=== PATIENT | male | born 1955 | race Caucasian/White ===

== ENCOUNTER 2025-05-03 15:29 | Emergency (ER) | payer MEDICARE, SELFPAY ==
[2025-05-03] VITALS (8 sets, daily range): BP systolic 104–141; BP diastolic 68–90; PULSE 74–86; RESP 12–23; TEMP 36.7–36.8; O2SAT 95–99
--- NOTE | ~2025-05-03 | XR_ITS ---
EXAMINATION: XR chest 1V portable Exam Date/Time: 05/03/2025 20:40 CDT HISTORY: cp Comparison: None. RESULT: Lines, tubes, and devices: Intact sternotomy wires. Lungs and pleura: Peripheral lower lung scar, minimal bibasilar scar/atelectasis otherwise clear. Cardiomediastinal silhouette: Enlarged heart. Other: No acute osseous or upper abdominal finding. IMPRESSION: No acute cardiopulmonary process. Cardiomegaly. Reviewed, dictated and finalized at location K.
--- OUTSIDE RECORDS SUMMARY | 2025-05-03 15:32 | XMS_ITS | Encounter Summary ---
Author Organization [facility] Address [address] [place] [address] Care Team Providers Care Orientor Name Role Phone Unavailable Primary Care Provider Unavailabl e Prior Encounters Date Type Department Care Team Description 11/02/2019 Converted CPS Chart Documents [facility] [address] [place], [place] [phone] <No scans attached> 11/02/2019 Converted 13x Documents [facility] [address] [place] [phone] <No scans attached> Plan of Treatment Not on file Procedures Procedure Name Priority Date/Time Associated Diagnosis Comments CANCELLED APPOINTMENT Routine 03/16/2019 2:00 AM CDT ORAL HYGIENE INSTRUCTIONS Routine 2017 2:00 AM MEDICAL TRANSCRIPTION SUPERVISOR PROPHYLAXIS - ADULT Routine 09/24/2018 2 :00 AM MEDICAL TRANSCRIPTION SUPERVISOR PERIODIC ORAL EVALUATION - ESTABLISHED PATIENT Routine 09/09/2018 2:00 AM MEDICAL TRANSCRIPTION SUPERVISOR BITEWINGS - FOUR RADIOGRAPHIC IMAGES Routine 09/09/2018 2:00 AM MEDICAL TRANSCRIPTION SUPERVISOR PERIODIC ORAL EVALUATION - ESTABLISHED PATIENT Routine 02/25/2018 2:00 AM CDT ORAL HYGIENE INSTRUCTIONS Routine 2017 2:00 AM CDT PROPHYLAXIS - ADULT Routine 02/25/2018 2 :00 AM CDT BITEWINGS - FOUR RADIOGRAPHIC IMAGES Routine 02/25/2018 2:00 AM CDT 30 EXTRACTION, ERUPTED TOOTH REQUIRING REMOVAL OF BONE AND/OR SECTIONING OF TOOTH Routine 08/14/2017 2:00 AM CDT PERIODIC ORAL EVALUATION - ESTABLISHED PATIENT Routine 07/31/2017 2:00 AM CDT ORAL HYGIENE INSTRUCTIONS Routine 2016 2:00 AM CDT UR ANTIBACT IRR/QUAD Routine 07/31/2017 2:00 AM CDT UL ANTIBACT IRR/QUAD Routine 07/31/2017 2:00 AM CDT LR ANTIBACT IRR/QUAD Routine 07/31/2017 2:00 AM CDT LL ANTIBACT IRR/QUAD Routine 07/31/2017 2:00 AM CDT PROPHYLAXIS - ADULT Routine 07/31/2017 2 :00 AM CDT BITEWINGS - FOUR RADIOGRAPHIC IMAGES Routine 07/31/2017 2:00 AM CDT ADDITIONAL X-RAY Routine 07/31/2017 2:00 AM CDT SINGLE X-RAY Routine 07/31/2017 2:00 AM CDT 20 DO COMPOSITE FILLING Routine 10/24/19 17 2:00 AM MEDICAL TRANSCRIPTION SUPERVISOR 18 MO COMPOSITE FILLING Routine 10/24/19 17 2:00 AM MEDICAL TRANSCRIPTION SUPERVISOR PERIODIC ORAL EVALUATION - ESTABLISHED PATIENT Routine 10/10/2016 2:00 AM MEDICAL TRANSCRIPTION SUPERVISOR ORAL HYGIENE INSTRUCTIONS Routine 2015 2:00 AM MEDICAL TRANSCRIPTION SUPERVISOR PROPHYLAXIS - ADULT Routine 10/10/2016 2 :00 AM MEDICAL TRANSCRIPTION SUPERVISOR BITEWINGS - FOUR RADIOGRAPHIC IMAGES Routine 10/10/2016 2:00 AM MEDICAL TRANSCRIPTION SUPERVISOR ADDITIONAL X-RAY Routine 10/10/2016 2:00 AM MEDICAL TRANSCRIPTION SUPERVISOR ADDITIONAL X-RAY Routine 10/10/2016 2:00 AM MEDICAL TRANSCRIPTION SUPERVISOR ADDITIONAL X-RAY Routine 10/10/2016 2:00 AM MEDICAL TRANSCRIPTION SUPERVISOR ADDITIONAL X-RAY Routine 10/10/2016 2:00 AM MEDICAL TRANSCRIPTION SUPERVISOR ADDITIONAL X-RAY Routine 10/10/2016 2:00 AM MEDICAL TRANSCRIPTION SUPERVISOR SINGLE X-RAY Routine 10/10/2016 2:00 AM MEDICAL TRANSCRIPTION SUPERVISOR PERIODIC ORAL EVALUATION - ESTABLISHED PATIENT Routine 04/03/2016 2:00 AM CDT ORAL HYGIENE INSTRUCTIONS Routine 2015 2:00 AM CDT PROPHYLAXIS - ADULT Routine 04/03/2016 2 :00 AM CDT BITEWINGS - FOUR RADIOGRAPHIC IMAGES Routine 04/03/2016 2:00 AM CDT ADDITIONAL X-RAY Routine 04/03/2016 2:00 AM CDT ADDITIONAL X-RAY Routine 04/03/2016 2:00 AM CDT ADDITIONAL X-RAY Routine 04/03/2016 2:00 AM CDT ADDITIONAL X-RAY Routine 04/03/2016 2:00 AM CDT ADDITIONAL X-RAY Routine 04/03/2016 2:00 AM CDT SINGLE X-RAY Routine 04/03/2016 2:00 AM CDT 30 PREFABRICATED POST AND CORE IN ADDITION TO CROWN Routine 09/27/2015 2:00 AM MEDICAL TRANSCRIPTION SUPERVISOR 29 PREFABRICATED POST AND CORE IN ADDITION TO CROWN Routine 09/27/2015 2:00 AM MEDICAL TRANSCRIPTION SUPERVISOR 19 ENDODONTIC THERAPY, MOLAR TOOTH (EXCLUDING FINAL ALEVISM) Routine 09/27/2015 2:00 AM MEDICAL TRANSCRIPTION SUPERVISOR 14 ENDODONTIC THERAPY, MOLAR TOOTH (EXCLUDING FINAL ALEVISM) Routine 09/27/2015 2:00 AM MEDICAL TRANSCRIPTION SUPERVISOR 30 ENDODONTIC THERAPY, PREMOLAR TOOTH (EXCLUDING FINAL ALEVISM) Routine 09/27/2015 2:00 AM MEDICAL TRANSCRIPTION SUPERVISOR 29 ENDODONTIC THERAPY, PREMOLAR TOOTH (EXCLUDING FINAL ALEVISM) Routine 09/27/2015 2:00 AM MEDICAL TRANSCRIPTION SUPERVISOR 30 CROWN PFM POST Routine 09/27/2015 2:0 0 AM MEDICAL TRANSCRIPTION SUPERVISOR 29 CROWN PFM POST Routine 09/27/2015 2:0 0 AM MEDICAL TRANSCRIPTION SUPERVISOR 19 CROWN PFM POST Routine 09/27/2015 2:0 0 AM MEDICAL TRANSCRIPTION SUPERVISOR 14 CROWN PFM POST Routine 09/27/2015 2:0 0 AM MEDICAL TRANSCRIPTION SUPERVISOR COMPREHENSIVE ORAL EVALUATION - NEW OR ESTABLISHED PATIENT Routine 09/27/2015 2:00 AM MEDICAL TRANSCRIPTION SUPERVISOR ORAL HYGIENE INSTRUCTIONS Routine 2014 2:00 AM MEDICAL TRANSCRIPTION SUPERVISOR TOPICAL APPLICATION OF FLUORIDE VARNISH Routine 09/27/2015 2:00 AM MEDICAL TRANSCRIPTION SUPERVISOR PROPHYLAXIS - ADULT Routine 09/27/2015 2 :00 AM MEDICAL TRANSCRIPTION SUPERVISOR PANORAMIC RADIOGRAPHIC IMAGE Routine 09/27/2015 2:00 AM MEDICAL TRANSCRIPTION SUPERVISOR INTRAORAL - COMPREHENSIVE SERIES OF RADIOGRAPHIC IMAGES Routine 09/27/2015 2:00 AM MEDICAL TRANSCRIPTION SUPERVISOR INTRAORAL PHOTO Routine 09/27/2015 2:00 AM MEDICAL TRANSCRIPTION SUPERVISOR INTRAORAL PHOTO Routine 09/27/2015 2:00 AM MEDICAL TRANSCRIPTION SUPERVISOR INTRAORAL PHOTO Routine 09/27/2015 2:00 AM MEDICAL TRANSCRIPTION SUPERVISOR INTRAORAL PHOTO Routine 09/27/2015 2:00 AM MEDICAL TRANSCRIPTION SUPERVISOR 15 MOD COMPOSITE FILLING Routine 015 2:00 AM MEDICAL TRANSCRIPTION SUPERVISOR 13 MOD COMPOSITE FILLING Routine 015 2:00 AM MEDICAL TRANSCRIPTION SUPERVISOR 3 MOD COMPOSITE FILLING Routine 09/27/20 2:00 AM MEDICAL TRANSCRIPTION SUPERVISOR 12 DO COMPOSITE FILLING Routine 09/27/20 2:00 AM MEDICAL TRANSCRIPTION SUPERVISOR 4 DO COMPOSITE FILLING Routine 5 2:00 AM MEDICAL TRANSCRIPTION SUPERVISOR 18 O COMPOSITE FILLING Routine 5 2:00 AM MEDICAL TRANSCRIPTION SUPERVISOR 2 O COMPOSITE FILLING Routine 09/27/2015 2:00 AM MEDICAL TRANSCRIPTION SUPERVISOR Visit Diagnoses Not on file
--- OUTSIDE RECORDS SUMMARY | 2025-05-03 15:32 | XMS_ITS | Continuity of Care Document ---
[facility] Organization [facility] [place] [address] [facility] utijustine Flannery [address] [place] [phone] Phone Care Team Providers Care Real Estate Development Manager Name Role Phone Gordo Ragland MD Unavailable Unavailable Allergies, Adverse Reactions, Alerts Substance Reaction Status Criticality Sulfa (Sulfonamide Antibiotics) Active No Information Medications Medication Instructions Dosage Effective Dates (start - stop) Status Comments Marsha 128 5 % eye drops instill 1 drop by ophthalmic route two times per day in each eye - Active ezetimibe 10 mg tablet take 1 tablet by oral route every day 10 MG - Active terazosin 2 mg capsule take 1 capsule by oral route every day at bedtime 2 MG - Active rosuvastatin 40 mg tablet take 1 tablet by oral route every day 40 MG - Active metoprolol succinate ER 100 mg tablet,extended release 24 hr take 1 tablet by oral route every day 100 MG - Active lisinopril 5 mg tablet take 1 tablet by oral route every day 5 MG - Active clopidogrel 75 mg tablet take 1 tablet by oral route every day 75 MG - Active amlodipine 5 mg tablet take 1 tablet by oral route every day 5 MG - Active diltiazem ER 240 mg capsule,24 hr,extended release take 1 capsule by oral route every day 240 MG - Active Eliquis 5 mg tablet take 1 tablet by oral route 2 times every day 5 MG - Active ketorolac 0.5 % eye drops instill 1 drop in operative eye 4 times every day for 2 weeks, then 2 times per day for 2 weeks, then stop - No Longer Active prednisolone acetate 1 % eye drops,suspension instill 1 drop by ophthalmic route 4 times every day into operative eye for 2 weeks, then 2 times per day for 2 weeks, then stop - No Longer Active Vigamox 0.5 % eye drops instill 1 drop by ophthalmic route 4 times every day into operative eye for 2 weeks, then stop - No Longer Active ok to substitute Polytrim 5ml with same directions ketorolac 0.5 % eye drops instill 1 drop in operative eye 4 times every day for 2 weeks, then 2 times per day for 2 weeks, then stop - No Longer Active prednisolone acetate 1 % eye drops,suspension instill 1 drop by ophthalmic route 4 times every day into operative eye for 2 weeks, then 2 times per day for 2 weeks, then stop - No Longer Active Vigamox 0.5 % eye drops instill 1 drop by ophthalmic route 4 times every day into operative eye for 2 weeks, then stop - No Longer Active ok to substitute Polytrim 5ml with same directions Procedures Procedure Date Refraction Post-op Follow-up Visit Post-op Follow-up Visit Post-op Follow-up Visit Remove Cataract, Insert Lens No Charge Refraction Post-op Follow-up Visit Post-op Follow-up Visit Remove Cataract, Insert Lens No Charge Optomap Fundus Photos 020 No Charge Refraction Office/outpatient Visit, Est Office/outpatient Visit, Est No Charge Refraction No Charge Orbscan No Charge GDX Retina IOLMaster IOLMaster Corneal Pachymetry No Charge Refraction Eye Exam, New Patient No Charge Pachymetry Advance Directives Directive Yes / No Effective Date File Name No Information Encounters Encounter Description Practice Location Reason(s) For Visit Diagnoses Date Provider Providers Copied on Encounter [facility], [address], [place], [place], [id number], [place] [phone] SEC Cut[place] Professional 1 mo CE PO (04/20/20) (chief complaint) Post op visit 0 Obie Caro. [address] [facility], [place], [id number], [place]. tel:[phone] Referring Provider: Reji Slade, [address] [place] [address], [place], [address] . tel:[phone] [facility], [address] [place] [address] [address], [place], [place], [id number], [place] [phone] SEC [place] Professional 1 wk po PCIOL OD (04/20/20) (chief complaint) Post op visit 0 Charley Gonzalez. [address] [place] [address], [address] [place] [address], [place], [address], [place]. tel:[phone] Referring Provider: Carlos Whitehead OD R, [address] [place] [address], [place], [address]. tel:[phone] [facility], [address], [place], [place], [id number], [place] tel:[phone] SEC [place] Professional 1 day s/p PCIOL (chief complaint) Post op visit 0 Charley MORA Carlos. [address] [place] [address], [address] [place] [address], [place], [address], [place]. tel:[phone] Referring Provider: Carlos Whitehead OD R, [address] [place] [address], [place], [address]. tel:[phone] [facility], [address], [place], [place], [id number], [place] tel:[phone] [facility] No Information 0 Obie Caro. [address] [facility], [address] [place], [id number], . tel:[phone] Referring Provider: Carlos Mc, [address] [place] [address], [place], [address]. tel:[phone] [facility], [id number] [place] [address] [address], [place], [place], [id number], tel:[phone] SEC Helene Edmond [facility] No Information 0 Obie Caro. [address] [facility], [facility] [place], [id number], [place]. tel:[phone] [facility], [address] [place] [address] [address], [place], [place], [address], [place] tel:[phone] SEC [place] Professional Post-Op (chief complaint) Post op visit 0 Charley Gonzalez. [address] [place] [address], [address], [place]. tel:[phone] Referring Provider: Carlos Mc, [address] [place] [address], [place], [address]. tel:[phone] [facility], [address] [place] [address] [address], [place], [place], [id number], [place] tel:[phone] SEC [place] Professional Post-Op (chief complaint) Post op visit 0 Charley Gonzalez. [address] [place] [address], [address] [place] [address], [place], [address], [place]. tel:[phone] Referring Provider: Carlos Mc, [address] [place] [address], [address]. tel:[phone] [facility], [address] [place] [address] [address], [place], [place], [id number], [place] tel:[phone] [facility] No Information 0 Obie Caro. [address] [facility], [address], [place], [place], [id number], [place]. tel:[phone] Referring Provider: Carlos Whitehead OD R, [address] [place] [address], [place], [address]. tel:[phone] Office/outpa tient Visit, [facility], [address] [place] [address] [address], [place], [place], [id number], [place] tel:[phone] SEC Catracho [place] Professional 90 day cataract eval (chief complaint) Combined forms of age-related cataract, bilateralEpir etinal membrane (ERM) of left eyeFuchs' corneal dystrophyType 2 diabetes mellitus without complications Optic cupping of left eye 0 Obie Caro. [address] [facility] [place], [address], [place]. tel:[phone] Referring Provider: Carlos Whitehead OD R, [address] [place] [address], [place], [address]. tel:[phone] [facility], [address] [place] [address] [address], [place], [place], [address], [place] tel:[phone] SEC Catracho LANGE Professional No Information 0 Obie Caro. [address] [facility] [address], [place], [place], [id number], [place]. tel:[phone] Office/outpa tient Visit, [facility], [address] [place] [address] [address], [place], [place], [id number], [place] tel:[phone] SEC Catracho LANGE Professional Cataract evaluation (chief complaint) Combined forms of age-related cataract, bilateralEpir etinal membrane (ERM) of left eyeType 2 diabetes mellitus without complications Fuchs' corneal dystrophy 0 Obie Caro. [address] [facility], [facility] [place], [address], [place]. tel:[phone] Referring Provider: Carlos Whitehead OD R, [address] [place] [address], [place], [address]. tel:[phone] [facility], [address], [place], [place], [id number], tel:[phone] SEC Catracho LANGE Professional Complete Exam (chief complaint) Type 2 diabetes mellitus without complications Fuchs' corneal dystrophyComb ined forms of age-related cataract, bilateralEpir etinal membrane (ERM) of left eyeDry eye syndrome of bilateral lacrimal glands 0 Charley OD Carlos. [address] [place] [address], [address] [place] [address], [place], [address], [place]. tel:[phone] [facility], [address], [place], [place], [id number], [place] tel:[phone] SEC Catracho LANGE Professional No Information 0 Charley OD Carlos. [address] [place] [address], [address] [facility], [place], [address], [place]. tel:[phone] Family History Family Member Type Diagnosis Age At Onset No Information Payers Payer name Insurance type Covered democrat ID Authoriza tion(s) No Information Social History Type Description Quantity Date Captured Comments Alcohol Use Details Caffeine Use Details Tobacco Use Status Current non-smoker Smoking Status Never smoker Non-Smoking Tobacco Use Details : No Details Available : No Details Available Sex Male Chief Complaint And Reason For Visit From encounter dated '05/20/2020 09:15'. 1 mo CE PO (04/20/20) (chief complaint). Description: The 65 year old male presents for evaluation of1 mo CE PO (04/20/20) in the right eye. Pt reports he finished all CE PO gtts a few days ago and currently uses Marsha 128 PRN OU. Pt reports OD is doing good and he is seeing a lot better since CE, OD. Reason For Referral Reason For Referral No Information Plan Of Treatment Date Type Action Status Patient Education Cataract Surgery: What to Expect at H~ completed Patient Education Cataract Surgery: What to Expect at H~ completed Patient Education Cataracts: Care Instruc tions completed History Of Present Illness Encounter Date Complaint History Of Prese nt Illness 1 mo CE PO (04/20/20) The 65 year old male presents for evaluation of 1 mo CE PO (04/20/20) in the right eye. Pt reports he finished all CE PO gtts a few days ago and currently uses Marsha 128 PRN OU. Pt reports OD is doing good and he is seeing a lot better since CE, OD. 1 wk po PCIOL OD (04/20/20) The 65 year old male presents for evaluation of 1 wk po PCIOL OD (04/20/20) in the right eye. Pt reports good comfort and vision OD. Pt reports taking Pred QID OD, Vigamox QID OD, and Ketorolac QID OD. Pt has not been taking Marsha 128 and wants to know if he needs to continue. 1 day s/p PCIOL The 65 year old male presents for evaluation of 1 day s/p PCIOL in the right eye. Patient doing well. Patient instructed to use Pred, Ket, and Vig as well as use of eye shield. Post-Op The 65 year old male presents for a 2 week post op CE OS. Patient is using Pred, and Ketorolac tid OS. Patient ran out of Vigamox yesterday. Patient states OS is doing good. Patient wishes to proceed with CE OD because of blurry vision. Patient is bothered by glare driving at night. Patient is having a hard time watching TV and did not recognize a friend from across the street. Post-Op The 65 year old male presents for a 1 day post op CE OS. Patient is using Pred, Vigamox and Ketorolac qid OS. Patient denies any pain or discomfort. 90 day cataract eval The 65 year old male presents for evaluation of 90 day cataract eval in the right eye and left eye. Pt has Hx of cataracts OU, MICHAEL OU, ERM OD, Fuch's OU. Pt instills Marsha OU bid. Pt is Type II NIDDM, he doesn't know his A1c or BS. Pt has difficulty with driving at night due to glare, he has difficulty during the day with glare as well. Pt has difficulty seeing road signs and TV. He could not recognize a friend across the street. Cataract evaluation The 64 year old male presents for evaluation of Cataract evaluation in the right eye and left eye. Hx of CAT OU, ERM OD, MICHAEL OU, and Fuch's OU. Pt is NIDDM II x 8 yrs, followed by PCP, pt reports he is unaware of BS and A1C was good in August. Pt reports he has trouble reading street signs, TV, and recognizing people's faces from across the street, OU, x several mos. Pt reports he is using WC PRN OU, Marsha 128 QD OU and AFT QD OU. Complete Exam The 64 year old male presents for evaluation of Complete Exam in the right eye and left eye. Hx of scratched eye w/tree branch OS 20 yrs ago. Pt denies any past ocular Sx, OU. Pt is NIDDM II x 8 yrs, followed by PCP Dr. Sarah Gonzalez (Not in [employer]), pt reports he doesn't check BS, is unsure of A1C, but it was good in August 2019. Pt reports blurry DV, OU, since February last year. Pt reports ILIA was February 2019, got new gls, and they didn't really help. Pt reports he uses Marsha 128 QHS OU when he remembers, the eye dr in February gave him that in February for the cloudiness in his VA, OU, and he hasn't noticed that it helps. Functional Status Date Functional Assessmen t No Information Instructions Date Instruction Additional Infor mation Impression/Plan 2wk or sooner prn Related to Pos t op visit Impression/Plan Related to Post op visit Impression/Plan Impression/Plan Impression/Plan Impression/Plan Impression/Plan Impression/Plan Assessments Type Assessment Date assessment Post op visit Patient Care Teams Name Effective Dates (start - stop) Status Members No Information
--- OUTSIDE RECORDS SUMMARY | 2025-05-03 15:32 | XMS_ITS | Clinical Summary ---
Author Organization [employer] [address] [facility] Address [address] [place] [address] Care Team Providers Care C D Still Operator Name Role Phone Isabela Augustine Primary Care Provider [phone] Allergies Active Allergy Reactions Criticality Noted Date Comments Sulfa (Sulfonamide Antibiotics) Rash Low 04/2025 Medications zinc 50 mg Tablet Take 50 mg by mouth daily. Active warfarin (Jantoven) 2 mg tablet Take 1.5 Tablets (3 mg) by mouth daily. 135 Tablet 2 0 Active Additional Information Patient taking differently: 2 mgOral DAILY, Reported on 04/29/2025 metFORMIN (GLUCOPHAGE) 500 mg tablet Take 500 mg by mouth 2 times daily with meals. 5 Active ALPRAZolam (XANAX) 0.5 mg tablet Take 0.5 mg by mouth nightly as needed. 4 Active oxyBUTYnin (DITROPAN XL) 10 mg Extended Release 24 hour tablet Take 10 mg by mouth daily. 5 Active pantoprazole (PROTONIX) 40 mg Tablet, Delayed Release (E.C.) Take 40 mg by mouth daily. 5 Active tamsulosin (FLOMAX) 0.4 mg capsule Take 0.4 mg by mouth daily. 5 Active amLODIPine (NORVASC) 2.5 mg tablet Take 1 Tablet (2.5 mg) by mouth daily. 100 Tablet 3 5 Active atorvastatin (LIPITOR) 80 mg tablet Take 1 Tablet (80 mg) by mouth daily at bedtime. 100 Tablet 3 5 Active ezetimibe (ZETIA) 10 mg tablet Take 1 Tablet (10 mg) by mouth daily. 90 Tablet 1 5 Active losartan (COZAAR) 100 mg tablet Take 1 Tablet (100 mg) by mouth daily. 100 Tablet 3 5 Active metoprolol succinate (TOPROL XL) 100 mg Extended Release 24 hour tablet TAKE 1 TABLET BY MOUTH EVERY DAY 90 Tablet 3 5 Active dapagliflozin propanediol (Farxiga) 10 mg Tablet Take 1 Tablet (10 mg) by mouth daily. 90 Tablet 1 5 Active Active Problems Problem Noted Date Diagnosed Date Aortic root dilatation 06/29/2020 A-fib 12/17/2019 PAF (paroxysmal atrial fibrillation) 10/21/2019 Chronic anticoagulation 10/21/2019 Coronary artery disease invo lving [place]tz tribe coronary artery of [place] heart with unstable angina pectoris 04/15/2019 Palpitations 04/15/2019 Dyslipidemia 04/15/2019 [place] (myocardial infarction) 04/15/2019 Anxiety 02/12/2019 Atrial fibrillation with RVR 02/12/2019 BPH (benign prostatic hyperplasia) 02/12/2019 Clicking tinnitus 02/12/2019 Essential hypertension 02/12/2019 GERD (gastroesophageal reflux disease) 9 Type 2 diabetes mellitus 02/12/2019 Benign colon polyp 03/31/2018 History of coronary artery bypass surgery 2014 Coronary artery disease invo lving [place] coronary artery with unstable angina pectoris 05/20/2015 Hyperlipidemia 05/20/2015 Resolved Problems Problem Noted Date Diagnosed Date Resolved Date Right inguinal hernia 04/09/20192018 Left main coronary artery disease 05/20/2015 08/24/2019 Encounters Date Type Department Care Team Description 05/03/2025 Telephone [facility] GASTROENTEROLOGY - [address] [facility] 102 [address] [address] [facility] [address] [place] [address] Bhumi Jaeger MD GI Problem 04/30/2025 Telephone [facility] GASTR[facility] - [address] [facility] 102 [address] [address] [place] [address] Bhumi Jaeger MD Referral 04/29/2025 9:48 AM CDT Anesthesia Event [facility] Endoscopy Services [address] [place] [phone] Cliff Araiza MD Wagner, Caitlin E, AA-Jonathan 04/29/2025 9:30 AM CDT - 04/29/2025 10:30 AM CDT Surgery [facility] [address] [place] [address] Bhumi Jaeger MD ULTRASOUND ENDOSCOPIC 04/29/2025 8:50 AM CDT - 04/29/2025 12:36 PM CDT Hospital Encounter [facility] [address] [place] [address] Bhumi Jaeger MD Lymphadenopathy Discharge Disposition: Home or Self Care 04/28/2025 External Device Data STL ABSTRACTION Provider, Abstract 04/27/2025 External Device Data STL ABSTRACTION Provider, Abstract 04/12/2025 Orders Only [facility] Heart and Vascular - [address] [facility] 202 [address] [facility] [address] [place] [address] Shae Dinh MD Longstanding persistent atrial fibrillation ([facility]/HCC) 04/09/2025 Telephone [facility] GASTROENTEROLOGY - [address] [facility] 102 [address] [facility] [address] [place] [address] Bhumi Jaeger MD NURSE ASSESSMENT 04/09/2025 Telephone [facility] GASTROENTEROLOGY - [address] [facility] [address] [address] Bhumi Jaeger MD Medication Question (Warfarin) 04/09/2025 Orders Only [facility] GASTRO[facility]OLOGY - [address] [facility] [address] [address] Bhumi Jaeger MD 04/08/2025 Telephone [facility] GASTROENTEROLOGY - [address] [facility] [address] 102 [address] [facility] [address] [place] [address] Bhumi Jaeger MD Needs Orders Written 04/08/2025 Chart Note [facility] Heart and Vascular - [address] [place] [phone] Myron Cyndie L 04/08/2025 Telephone [facility] Heart and Vascular - [address] [place] [address] Shae Dinh MD message 04/07/2025 Telephone [facility] Heart and Vascular - [address] [place] [address] Shae Dinh MD Abnormal Imaging Results 04/06/2025 7:48 AM CDT - 04/06/2025 11:59 PM CDT Hospital Encounter [facility] Imaging Services [address] [place] [address] Shae Dinh MD Discharge Disposition: Home or Self Care 04/06/2025 Telephone [facility] Heart and Vascular - [address] [place] [address] Shae Dinh MD Imaging Results 04/05/2025 Orders Only [facility] Heart [facility] Vascular - [address] [place] [address] Shae Dinh MD Longstanding persistent atrial fibrillation ([facility]/HCC) 03/30/2025 External Device Data STL ABSTRACTION Provider, Abstract 03/29/2025 Orders Only [facility] Heart [facility] Vascular - [address] [place] [address] Shae Dinh MD Longstanding persistent atrial fibrillation ([facility]/HCC) 03/22/2025 Telephone [facility] Heart [facility] Vascular - [address] [place] [address] Shae Dinh MD test results 03/22/2025 Orders Only [facility] Heart [facility] Vascular - [address] [place] [address] Shae Dinh MD Longstanding persistent atrial fibrillation ([facility]) 03/19/2025 Telephone [facility] Heart and Vascular - [address] [place] [address] Ben Aceves MD medical question 03/18/2025 Telephone [facility] Heart [facility] Vascular - [address] [place] [address] Shae Dinh MD image 03/18/2025 Telephone [facility] Heart [facility] Vascular - [address] [place] [address] Shae Dinh MD Further testing 03/17/2025 12:00 PM CDT - 03/17/2025 11:59 PM CDT Hospital Encounter [facility] [place] [address] [place] [address] Shae Dinh MD Discharge Disposition: Home or Self Care 03/15/2025 Orders Only [facility] Heart [facility] Vascular - [address] [place] [address] Shae Dinh MD Longstanding persistent atrial fibrillation ([facility]) 03/09/2025 External Device Data STL ABSTRACTION Provider, Abstract 03/08/2025 Orders Only [facility] Heart and Vascular - [address] [place] [address] Shae Dinh MD Longstanding persistent atrial fibrillation ([facility]) 03/04/2025 External Device Data STL ABSTRACTION Provider, Abstract 03/01/2025 Orders Only [facility] Heart and Vascular - [address] [place] [address] Shae Dinh MD Longstanding persistent atrial fibrillation (CMS/HCC) 02/22/2025 Orders Only [facility] Heart [facility] Vascular - [address] [place] [address] Shae Dinh MD Longstanding persistent atrial fibrillation ([facility]/HCC) 02/15/2025 Orders Only [facility] Heart [facility] Vascular - [address] [place] [address] Shae Dinh MD Longstanding persistent atrial fibrillation ([facility]/HCC) 02/11/2025 10:30 AM CDT Office Visit [facility] Heart and Vascular - [address] [place] [address] Shae Dinh MD Longstanding persistent atrial fibrillation ([facility]/HCC) (Primary Dx); Bradycardia; Anticoagulation management encounter 02/11/2025 Chart Note [facility] Heart [facility] Vascular - [address] [place] [address] Shae Dinh MD 02/11/2025 Prep for Surgery [facility] Heart [facility] Vascular - [address] [place] [address] Shae Dinh MD Longstanding persistent atrial fibrillation ([facility]/HCC) (Primary Dx) 02/05/2025 Telephone [facility] [address] [facility] [address] [place] [address] Ben Aceves MD Medication Question from Last 3 Months Immunizations Immunization Administration Dates Next Due Influenza Vaccine High Dose 65+ Yrs IM 9 Zoster Vaccine Live SQ 04/27/2015 Family History Medical History Relation Name Comments Healthy Daughter 1 Healthy Daughter 2 Dementia Father Heart Disease Maternal Grandfather Heart Disease Maternal Grandmother Stomach Cancer Mother Heart Attack Paternal Grandfather Healthy Paternal Grandmother Healthy Sister Relation Name Status Comments Daughter 1 Alive Daughter 2 Alive Father Maternal Grandfather Maternal Grandmother Mother Paternal Grandfather Paternal Grandmother Sister Alive Social History Tobacco Use Types Packs/Day Years Used Date Smoking Tobacco: Never Smokeless Tobacco: Never Tobacco Cessation:Counseling Given: Not Answered Alcohol Use Standard Drinks/Week Comments Yes 4 (1 standard drink = 0.6 oz pur e alcohol) Sex and Gender Information Value Date Recorded Sex Assigned at Not on file Legal Sex Male 12:24 PM CDT Gender Identity Not on file Sexual Orientation Not on file Last Filed Vital Signs Vital Sign Reading Time Taken Comments Blood Pressure 104/71 04/29/2025 11:40 AM CDT Pulse 52 04/29/2025 11:55 AM CDT Temperature 36.4 C (97.5 F) 04/29/2025 11:11 AM CDT Respiratory Rate 12 04/29/2025 11:55 AM CDT Oxygen Saturation 97% 04/29/2025 11:55 AM CDT Inhaled Oxygen Concentration - - Weight 89.4 kg (197 lb) 04/29/2025 9:07 AM CDT Height 190.5 cm (6' 3) 04/29/2025 9:07 AM CDT Body Mass Index 24.62 04/29/2025 9:07 AM CDT Plan of Treatment Upcoming Encounters Date Type Department Care Team (Late st Contact Info) Description 05/28/2025 9:30 AM CDT Office Visit [facility] Urology [facility] [address] [facility] [address] [place] [address] [place] [address] [facility] [address] [place] [address] 07/09/2025 3:00 PM CDT Office Visit [facility] Heart and Vascular - [address] [facility] 300 [address] [facility] [address] [place] [address] Diamond Peterson FNP [address] [facility] [address] [place] [address] Health Maintenance Due Date Last Done Comments DIABETES ANNUAL FOOT EXAM 1972 DIABETES MICROALBUMIN ANNUAL SCREEN 1972 FIT-DNA Q 3 years 1999 FIT/FOBT Q 1 year 1999 Flex Sig/CT Colonography Q 5 years 1999 RSV VACCINE (60+ or ) (1 - Risk 60-74 years 1-dose series) 2014 ZOSTER VACCINE (2 of 3) 06/22/2015 04/27/2015 PNEUMOCOCCAL VACCINE 50+ YEA RS (2 of 2 - PPSV23, PCV20, or PCV21) 10/22/2019 08/27/2019 DIABETES HBA1C Q 6 MONTHS 02/25/2020 08/27/2019, 11/2017 DIABETES ANNUAL RETINAL EXAM 11/04/2020 11/04/2019 INFLUENZA VACCINE (#1) 2025 9, 08/08/2017, 08/08/2016, Additional history exists LDL CHOLESTEROL ANNUAL 01/07/2026 5, 08/27/2019, 02/12/2019 COLORECTAL SCREENING 03/31/2028 03/31/2018, 03/31/2018, 03/31/2018 Colorectal Cancer Screening 03/31/2028 DTAP/TDAP/TD VACCINES (3 - T d or Tdap) 08/27/2029 08/27/2019, 04/27/2015 Medical Devices Implanted Type Area Senior Dot Net Developer Device Identifier Shelf Expiration Date Model / Serial / Lot Mesh Lap Film Progrip Slf Lp [id number] - Sna Implanted:Qty: 1 on 04/24/2019 by Erik Garvin DO at [facility] Mesh Right: Abdomen [employer] - [employer] 07/13/2021 [id number] / NA / [id number] Description:[id number] Procedures Procedure Name Priority Date/Time Associated Diagnosis Comments IGG SUBCLASSES Routine 04/30/2025 1:01 PM CDT Lymphadenopathy Intraabdominal mass UPPER ENDOSCOPIC ULTRASOUND REPORT 04/29/2025 11:16 AM CDT AK EDG US EXAM SURGICAL ALTER STOM DUODENUM/JEJUNUM 04/29/2025 9:30 AM CDT Lymphadenopathy Intraabdominal mass Case Notes running late- arriving at 9 Warfarin [address] ABDOMEN PELVIS W CONTRAST Routine 04/06/2025 8:40 AM CDT Abdominal mass, unspecified abdominal location Mediastinal mass Palpable abdominal mass POC CREATININE Routine 04/06/2025 8:24 AM CDT PROTIME-INR Routine 03/18/2025 2:21 PM CDT Longstanding persistent atrial fibrillation (CMS/HCC) CT HEART CARD STRUC W 3D W CONT Routine 03/17/2025 1:14 PM CDT Longstanding persistent atrial fibrillation (CMS/HCC) POC CREATININE Routine 03/17/2025 12:58 PM CDT PROTIME-INR Routine 03/05/2025 2:33 PM CDT Longstanding persistent atrial fibrillation (CMS/HCC) PROTIME-INR Routine 02/24/2025 2:04 PM CDT Longstanding persistent atrial fibrillation (CMS/HCC) PROTIME-INR Routine 02/16/2025 1:15 PM CDT Longstanding persistent atrial fibrillation (CMS/HCC) LIPID PANEL Routine 01/07/2025 11:18 AM CDT Coronary artery disease involving siletz tribe coronary artery of s[place]tz tribe heart without angina pectoris Longstanding persistent atrial fibrillation (CMS/HCC) Dyslipidemia Dyspnea on exertion Aneurysm of ascending aorta without rupture DIABETES EYE EXAM Routine 11/04/2019 HEMOGLOBIN A1C Routine 08/27/2019 11:12 AM LOCATION MANAGER Type 2 diabetes mellitus without complication, without long-term current use of insulin (CMS/HCC) ENDOSCOPY, COLON, SCREENING Routine 03/31/2018 from Last 3 Months or Most Recently Relevant to Health Maintenance Results * (ABNORMAL) IGG SUBCLASSES (04/30/2025 1:01 PM CDT) IGG SUBCLASS 1 290(L) 382 - 929 mg/dL [facility] IGG SUBCLASS 2 173(L) 241 - 700 mg/dL [facility] IGG SUBCLASS 3 37 22 - 178 mg/dL [facility] IGG SUBCLASS 4 5.8 4.0 - 86.0 mg/dL [facility] IGG 521(L) 600 - 1540 mg/dL [facility] Comment: Test Performed at: [email or web address] [address] [facility] [address] [place], [place] Jose Ospina M.D.,PhD Blood 04/30/2025 1:01 PM CDT 04/30/2025 1:01 PM CDT us Bhumi Jaeger MD CHEMISTRY ORDERABLES Final Resu lt [facility] [phone] [facility] [address] [facility] [address] [place], [place] * UPPER ENDOSCOPIC ULTRASOUND REPORT (04/29/2025 11:16 AM CDT) Narrative Procedure Note Bhumi Jaeger MD - 04/29/2025 11:16 AM CDT [facility] Endoscopy Patient Name: Ilia Sarabia Procedure Date: 04/29/2025 Date of : 1955 Attending MD: Bhumi Jaeger MD, Procedure: Upper EUS Indications: Lymphadenopathy on CT scan Providers: Bhumi Jaeger MD Referring MD: Shae Dinh Medicines: Monitored Anesthesia Care Complications: No immediate complications. Procedure: Informed consent was obtained for the procedure, including moderate sedation after risks were discussed. Based on the pre-procedure assessment, including review of the patient's medical history, medications, allergies, and review of systems, the patient was deemed to be an appropriate candidate for sedation. A timeout was performed. Continuous ECG monitoring, pulse oximetry, blood pressure monitoring, and direct observation were performed. The Endosonoscope was introduced through the mouth, and advanced to the third part of duodenum. The upper EUS was performed with difficulty. The patient tolerated the procedure well. Findings: ENDOSONOGRAPHIC FINDING: : Many enlarged lymph nodes were visualized in the peripancreatic region, aortocaval region and upper-abdominal periaortic region. The largest measured 26 mm by 27 mm in maximal cross-sectional diameter. The nodes were irregular and round and hypoechoic and hyperechoic. Fine needle aspiration for cytology was performed. Color Doppler imaging was utilized prior to needle puncture to confirm a lack of significant vascular structures within the needle path. Nine passes were made with the 22 gauge needle using a transduodenal approach. A stylet was used. A engraver tender was present and performed a preliminary cytologic examination. Final cytology results are pending. The pancreatic duct had a dilated endosonographic appearance in the main pancreatic duct. The pancreatic duct measured up to 6 mm in diameter. An anechoic lesion suggestive of a cyst was identified in the uncinate process of the pancreas. The lesion measured 6 mm by 5 mm in maximal cross-sectional diameter. There was a single compartment without septae. The outer wall of the lesion was thin. There was no associated mass. There was no internal debris within the fluid-filled cavity. There was no sign of significant endosonographic abnormality in the entire main bile duct. The maximum diameter of the duct was 7 mm. No stones, no biliary sludge, ducts of normal caliber and ducts with regular contour were identified. There was no sign of significant endosonographic abnormality in the visualized portion of the liver. Impression: - Many enlarged lymph nodes were visualized in the peripancreatic region, aortocaval region and upper-abdominal periaortic region. Fine needle aspiration performed. - Dilated pancreatic duct at the head of the pancreas up to 6 mm with a smooth taper toward the tail of the pancreas. - No evidence of a pancreatic mass lesion. - A small cystic lesion was seen in the uncinate process of the pancreas. It measures 6 x 5 mm. - There was no sign of significant pathology in the entire main bile duct. CBD measures up to 7 mm. - There was no evidence of significant pathology in the visualized portion of the liver. Recommendation: - Discharge patient to home. - Clear liquid diet today. - Await cytology results. - Refer to an oncologist. Procedure Code(s): --- Professional --- 35426, Esophagogastroduodenoscopy, flexible, transoral; with transendoscopic ultrasound-guided intramural or transmural fine needle aspiration/biopsy(s), (includes endoscopic ultrasound examination limited to the esophagus, stomach or duodenum, and adjacent structures) CPT copyright 2020 [employer]. All rights reserved. The codes documented in this report are preliminary and upon electric clock mechanic review may be revised to meet current compliance requirements. Bhumi Jaeger MD 04/29/2025 11:16:08 AM This report has been signed electronically. Number of Addenda: [id number] [place] [address] us Bhumi Jaeger MD GI PROCEDURE ORDERABLES Final R esult * CT ABDOMEN PELVIS W CONTRAST (04/06/2025 8:40 AM CDT) Anatomical Region Laterality Modality Abdomen Computed Tomogra phy 04/06/2025 8:28 AM CDT Addenda Addendum by Juan Chaudhary MD on 04/06/2025 10:52 AM CDT A [employer] message has been communicated to SHAE DINH via the [employer] Critical Results application on 04/06/2025 10:50 AM, Message ID [id number]. Impressions 04/06/2025 10:03 AM CDT IMPRESSION: 1. Enhancing retroperitoneal mass encasing the aorta and inferior vena cava with surrounding fat stranding and prominent mesenteric lymph nodes. Findings are highly concerning for lymphoma. Tissue sampling recommended. Endoscopic ultrasound may be the most direct approach. 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 The examination was performed with the adjustment of mA according to the patient size and/or the use of Iterative Reconstruction Technique. COMPARISON: No prior study is available for comparison at the time of this dictation. FINDINGS: Lower chest: Trace bilateral pleural effusions are present. The heart is enlarged. Coronary artery calcifications are present. Liver: There is no liver surface nodularity. -Focal liver lesions: No focal liver lesion. -Vasculature: Patent hepatic arterial and portal venous vasculature. Biliary: The gallbladder is absent. There is no biliary duct dilatation. Spleen: Normal. Pancreas: Normal. Adrenals: Normal. Kidneys/: Retroaortic left renal vein is present. A left renal cyst is present. There is no hydronephrosis. Gastrointestinal: The distal esophagus and stomach appear normal. There is no bowel wall thickening or dilatation. Vasculature: The aorta is normal in course and caliber with scattered atherosclerotic calcification. There are scattered atherosclerotic calcifications of the aortic branch vessels. Pelvic structures: The urinary bladder is unremarkable. The visible reproductive structures are normal. Other: There is a enhancing infiltrative retroperitoneal mass encasing the aorta and inferior vena cava at the level of the renal vasculature with the confluent portion of the mass measuring 6.8 x 6.3 x 8.7 cm. Beyond the central mass, there is infiltrative fat stranding extending through the periceliac region into the mesentery and pelvic fatty tissues. Mildly prominent mesenteric lymph nodes are present. Small ascites is present. There is no free air. No suspicious bone lesion is seen. No acute fracture is identified. Shae Dinh MD CT ORDERABLES Edited Result - Final * (ABNORMAL) POC CREATININE (04/06/2025 8:24 AM T) CREATININE POC 1.60(H) 0.60 - 1.30 mg/dL 04/06/2025 8:[address] [facility] Comment:The GFR result is no t clinically significant on patients <18 or >70 years of age. GFR POC 46 mL/min/1.7 3 sq meter 04/06/2025 8:[address] [facility] Comment:eGFR calculated with 2020 CKD-EPI equation. Vegetarian diet, extremely high or low muscle mass, and may affect results. Cystatin C with Glomerular Filtration Rate is a suitable alternative for these patients. Blood, whole 04/06/2025 8:24 AM CDT 04/06/2025 8:45 AM CDT Shae Dinh MD POINT OF CARE TESTING Final Result Performing Organization Address City/State/ZIP [facility] Phone Number [facility] CLIA# [id number] [address] [place] [address] * (ABNORMAL) PROTIME-INR (03/18/2025 2:21 PM CDT) Only the most recent of4 resultswithin the time period is included. INR 2.7(H) Jymob abigail Cook Comment: Reference Range 0.9-1.1 Moderate-intensity Warfarin Therapy 2.0-3.0 Higher-intensity Warfarin Therapy 3.0-4.0 PROTIME 27.5(H) 9.0 - 11.5 sec Cortona3D abigail Cook Comment: For additional information, please refer to http://education.IWT/faq/XXR695 (This link is being provided for informational/ educational purposes only.) AN UPDATE OR CORRECTION HAS BEEN MADE TO NAME Test Performed at: [facility] [place] [address] [place] [address] Ankur Ursula Vo Blood 03/18/2025 2:21 PM CDT 03/18/2025 2:21 PM CDT Shae Dinh MD HEMATOLOGY ORDERABLES Final Result [facility] [phone] [place] [address] [address] [place] [address] * CT HEART CARD STRUC W 3D W CONT (03/17/2025 1:14 PM CDT) Anatomical Region Laterality Modality Chest Computed Tomogra phy 03/17/2025 1:03 PM CDT Impressions 03/17/2025 2:37 PM CDT IMPRESSION: 1. No evidence of left atrial appendage thrombus. 2. Pulmonary vein measurements as above. 3. Posterior mediastinal mass measuring up to 6.0 cm is indeterminate. Further evaluation with thoracic spine MRI versus tissue sampling recommended. 4. Infiltrative soft tissue in the periceliac region is indeterminate and incompletely visualized. This could represent mesenteric edema or neoplastic process. CT abdomen and pelvis is recommended with contrast to evaluate the extent of the pathology. DICTATION LOCATION: Location [address] [place] [address] [facility] 03/17/2025 2:37 PM CDT EXAMINATION: CT HEART CARD STRUC W 3D W CONT DATE: 03/17/2025 1:14 PM HISTORY: Atrial fibrillation/flutter (AF); Longstanding persistent atrial fibrillation (CMS/HCC) TECHNIQUE: CT of the chest was performed following the uneventful administration of contrast (IOPAMIDOL 76 % INTRAVENOUS SOLUTION (MULTI-DOSE BULK PACK) Given:90 mL) according to pulmonary vein protocol. The examination was performed with the adjustment of mA according to the patient size and/or the use of Iterative Reconstruction Technique. Maximum intensity projection postprocessing was performed by the technologist and sent to the workstation for review. COMPARISON: No prior study is available for comparison at the time of this dictation. FINDINGS: Three right pulmonary veins and two left pulmonary veins are visible. The right superior pulmonary vein measures 23 mm in diameter. No early branching is seen. A right middle lobe pulmonary vein measures 10 mm. No early branching is seen. The right inferior pulmonary vein measures 23 mm. No early branching is seen. The left superior pulmonary vein measures 22 mm. No early branching is seen. The left inferior pulmonary vein measures 22 mm. No early branching is seen. There is no left atrial appendage thrombus. Lungs/Airway: There are regions of linear atelectasis bilaterally. Small bilateral pleural effusions are present. There is no evidence of pneumothorax. No suspicious pulmonary nodule is identified. The trachea is patent. Vessels: The ascending aorta is ectatic measuring up to 4.3 x 4.5 cm. Post-CABG changes are noted. The main pulmonary artery is normal in caliber. The aorta and coronary arteries are atherosclerotic. Aortic valvular calcifications are present. Mediastinum: The heart is enlarged. 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 Other: There is an infiltrating soft tissue lesion of the periceliac region. No suspicious bone lesion is seen. No acute fracture is identified. Shae Dinh MD CT ORDERABLES Edited Result - Final * (ABNORMAL) POC CREATININE (03/17/2025 12:58 PM CDT) CREATININE POC 1.70(H) 0.60 - 1.30 mg/dL 03/17/2025 12:58 PM CDT [facility] POINT OF CARE Comment:The GFR result is no t clinically significant on patients <18 or >70 years of age. GFR POC 43 mL/min/1.7 3 sq meter 03/17/2025 12:58 PM CDT [facility] POINT OF CARE Comment:eGFR calculated with 2020 CKD-EPI equation. Vegetarian diet, extremely high or low muscle mass, and may affect results. Cystatin C with Glomerular Filtration Rate is a suitable alternative for these patients. Blood, whole 03/17/2025 12:5 8 PM CDT 03/17/2025 1:02 PM CDT Shae Dinh MD POINT OF CARE TESTING Final Result [facility] POINT OF CARE CLIA # [id number] [address] [place] [address] * (ABNORMAL) LIPID PANEL (01/07/2025 11:18 AM CDT) CHOLESTEROL 81 <200 mg/dL Cortona3DPrudencio Cook HDL 27(L) > OR = 40 mg/dL Cortona3DPrudencio Cook TRIGLYCERIDE 60 <150 mg/dL [facility] LDL CALCULATED 40 mg/dL (calc) [facility] Cook Comment: Reference range: <100 Desirable range <100 mg/dL for primary prevention; <70 mg/dL for patients with CHD or diabetic patients with > or = 2 CHD risk factors. LDL-C is now calculated using the Darya calculation, which is a validated novel method providing better accuracy than the Friedewald equation in the estimation of LDL-C. Shantanu FULTON et al. SHALA. 2013;310(19): 2568-5659 (http://education.[employer]/faq/PYR511) CHOL/HDL RATIO 3.0 <5.0 (calc) [facility] abigail Cook NON-HDL CHOLESTEROL 54 <130 mg/dL (calc) [facility] JUNTA.CL abigail Joey Comment: For patients with diabetes plus 1 major ASCVD risk factor, treating to a non-HDL-C goal of <100 mg/dL (LDL-C of <70 mg/dL) is considered a therapeutic option. Test Performed at: [place] [address] [place] [address] JulySharona Paniagua Blood 01/07/2025 11:1 8 AM CDT 01/07/2025 11:18 AM CDT Ben Aceves MD CHEMISTRY ORDERABLES Final Re sult [facility] [phone] [place] [address] [place] [address] * DIABETES EYE EXAM (11/04/2019) Abstract Provider HEALTH MAINTENANCE Edited Resu lt - Final [facility] - [address] [place] [address]# [id number] [address] [place] [address] * HEMOGLOBIN A1C (08/27/2019 11:12 AM LOCATION MANAGER) HEMOGLOBIN A1C 5.3 <=5.6 % 08/27/2019 1:49 PM LOCATION MANAGER [facility] EST. AVG GLUCOSE, A1C 105 mg/dL 08/27/2019 1:49 PM LOCATION MANAGER [facility] Blood Venipuncture / Unknown 08/27/2019 11:12 AM LOCATION MANAGER 08/27/2019 11:12 AM LOCATION MANAGER Narrative [facility] - 08/27/2019 1:49 PM LOCATION MANAGER HGB A1C INTERPRETATION NORMAL: <5.7% PRE-DIABETES: 5.7 - 6.4% DIABETES: 6.5% OR GREATER us Dermond Carlos DO CHEMISTRY ORDERABLES Final Resu lt [facility] CLIA# [id number] [address] [place] [address] * ENDOSCOPY, COLON, SCREENING (03/31/2018) us Abstract Provider GI PROCEDURE ORDERABLES Final Result [facility] CLIA# [id number] [address] [place] [address] from Last 3 Months or Most Recently Relevant to Health Maintenance Insurance [facility] M[facility] Advance Directives For more information, please contact: [phone] * Full Code (Latest Code Status on File) Date Activated Date Inactivated Comments 11/17/2019 11:33 AM 11/17/2019 4:51 PM * Full Code Date Activated Date Inactivated Comments 04/24/2019 6:48 PM 04/25/2019 2:42 AM * Full Code Date Activated Date Inactivated Comments 04/24/2019 2:56 PM 04/24/2019 6:48 PM * Full Code Date Activated Date Inactivated Comments 04/24/2019 1:48 PM 04/24/2019 2:55 PM Care Teams C D Still Operator Relationship Specialty Start Date End Date Isabela Augustine DO PCP - General Family Practice 12/22/19
--- OUTSIDE RECORDS SUMMARY | 2025-05-03 15:32 | XMS_ITS | Clinical Summary ---
Author Organization [facility] Physician Office Building [address] [place] [address] Care Team Providers Care Manufacturing Technology Professor Name Role Phone Ben Aceves MD Unavailable [phone] Surendra Ramos MD Unavailable [phone] No, Physician Primary Care Provider [phone] Allergies Active Allergy Reactions Criticality Noted Date Comments Sulfa (Sulfonamide Antibiotics) Rash Medium 01/12 Medications dilTIAZem XR (dilTIAZem CD) 240 mg 24 hr capsule Take 1 capsule (240 mg total) by mouth daily 30 capsule Active clopidogreL (PLAVIX) 75 mg tabletIndications:Coron vicente artery disease of choct[place] artery of choct[place] heart with stable angina pectoris Take 1 tablet (75 mg total) by mouth daily PLEASE DO NOT TAKE UNTIL AFTER BRONCHOSCOPY 90 tablet 1 020 Active lisinopriL (PRINIVIL,ZESTRIL) 10 mg tabletIndications:Hyper tension associated with type 2 diabetes mellitus (HCC),Type 2 diabetes mellitus without complication, without long-term current use of insulin (HCC) Take 1 tablet (10 mg total) by mouth daily 90 tablet 3 Active metoprolol XL (TOPROL-XL) 100 mg 24 hr tabletIndications:Hyper tension associated with type 2 diabetes mellitus (HCC),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 Take 1 tablet (100 mg total) by mouth daily 90 tablet 3 020 Active rosuvastatin (CRESTOR) 40 mg tabletIndications:Dysli pidemia with low high density lipoprotein (HDL) cholesterol with hypertriglyceridemia due to type 2 diabetes mellitus (HCC),Type 2 diabetes mellitus without complication, without long-term current use of insulin (HCC),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 Take 1 tablet (40 mg total) by mouth daily 90 tablet 3 020 Active terazosin (HYTRIN) 2 mg capsuleIndications:Delmer gn prostatic hyperplasia without lower urinary tract symptoms Take 1 capsule (2 mg total) by mouth nightly 90 capsule 3 020 Active warfarin (COUMADIN) 2 mg tablet Take 1 tablet (2 mg total) by mouth daily 90 tablet 3 020 Active clonazePAM (KlonoPIN) 0.5 mg tablet Take 1 tablet (0.5 mg total) by mouth nightly 30 tablet 3 020 Active ciprofloxacin (CIPRO) 500 mg tabletIndications:Proph ylaxis, Medical Take 1 by mouth 2 hours prior to biopsy and repeat 10 hours after biopsy 2 tablet 020 Active amLODIPine (NORVASC) 5 mg tablet TAKE ONE TABLET BY MOUTH ONCE DAILY 90 tablet 3 020 Active Active Problems Problem Noted Date Diagnosed Date BMI 25.0-25.9,adult 12/29/2019 Lesion of skin of scalp 12/29/2019 Dependent edema 12/29/2019 Nail fungus 12/29/2019 Paroxysmal atrial fibrillation 10/21/2019 Assessment & Plan (06/06/2020 10:41 AM CDT): Rate-controlled, managed by cardiology. Patient would like to switch to a accounts payables clerk closer to home. Referral placed. Assessment & Plan (05/16/2020 7:14 PM CDT): EKG as noted above. On BB, Diltiazem and coumadin. Coumadin held for now. Telemetry monitoring. Dyslipidemia with low high d ensity lipoprotein (HDL) cholesterol with hypertriglyceridemia due to type 2 diabetes mellitus 04/15/2019 Assessment & Plan (06/06/2020 10:37 AM CDT): Stable. Cont. Current meds. Assessment & Plan (12/31/2019 4:34 PM CDT): Will managed with Crestor and Zetia. D/C Vytorin. Old OR (myocardial infarction) 04/15/2019 Anxiety 02/12/2019 BPH (benign prostatic hyperplasia) 02/12/2019 Assessment & Plan (06/06/2020 10:41 AM CDT): Asx. Cont current meds. Clicking tinnitus 02/12/2019 Assessment & Plan (12/31/2019 4:36 PM CDT): D/C Xanax, switched to Clonazepam. Patient is aware I do not prescribe Xanax as a chronic medication. Hypertension associated with type 2 diabetes mayelin litus 02/12/2019 Assessment & Plan (06/06/2020 10:36 AM CDT): BPS are within normal range. Cont current mgmt. Assessment & Plan (05/16/2020 7:20 PM CDT): Stable. On cheli, diltiazem, norvasc and metoprolol. Will follow. Assessment & Plan (01/28/2020 7:17 PM CDT): Stable. Cont. Current meds. Assessment & Plan (12/31/2019 4:33 PM CDT): Will managed with CHELI-I, beta-jaswant, amlodipine. D/C CCB. Will follow. Type 2 diabetes mellitus wit hout complication, without long-term current use of insulin 02/12/2019 Assessment & Plan (06/06/2020 10:37 AM CDT): Diet-controlled, cont current mgmt. Assessment & Plan (05/16/2020 7:19 PM CDT): Not on any medications. Recent a1c of 5.4. CC diet. Will follow. Assessment & Plan (12/31/2019 4:34 PM CDT): Diet controlled. Labs ordered. 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 Cont current mgmt. Assessment & Plan (05/16/2020 7:18 PM CDT): S/p CABG 2014. Assessment & Plan (12/31/2019 4:35 PM CDT): Asx. Managed by cardiology. Patient mentioned towards the end of his visit that he may be interested in going to a accounts payables clerk in town. Will think about it. Resolved Problems Problem Noted Date Diagnosed Date Resolved Date Pneumonia 05/16/2020 06/06/2020 Assessment & Plan (05/16/2020 7:13 PM CDT): RML per CT performed at [facility]. Initiated on IV azithromycin and continue on Cefepime. Prn albuterol. 05/06/20 COVID negative. Lymphadenopathy 05/16/2020 06/06/2020 Assessment & Plan (05/16/2020 7:13 PM CDT): Right hilar per CT as well. Pulmonary has been consulted for which we appreciate their evaluation and recommendations. Leukocytosis 05/16/2020 06/06/2020 Assessment & Plan (05/16/2020 7:13 PM CDT): Suspect r/t pneumonia. On IV abx. Cbc in am. Supratherapeutic INR 05/16/2020 020 Assessment & Plan (05/16/2020 7:15 PM CDT): Presented at >9. Coumadin held for now. S/p Vitamin K. Repeat at 1.7. Pharmacy has been consulted for dosing of coumadin. INR daily. Palpitations 04/15/2019 12/29/2019 GERD (gastroesophageal reflux disease) 02/12/2019 06/06/2020 Assessment & Plan (06/06/2020 10:37 AM CDT): Resolved. Assessment & Plan (12/31/2019 4:34 PM CDT): Stable. Cont. Current meds. Immunizations Immunization Administration Dates Next Due Influenza, Trivalent, High D ose, Split, Preservative Free, Intramuscular 08/27/2019 Pneumococcal Conjugate PCV 13 08/27/2019 Tdap 08/27/2019 ZOSTER LIVE 04/27/2015 Surgical History Surgery Date Site/Laterality Comments CORONARY ARTERY BYPASS GRAFT CHOLECYSTECTOMY TONSILLECTOMY SINUS SURGERY COLONOSCOPY last colonoscopy 2009 HERNIA REPAIR 04/13/2019 - 05/13/2019 Medical History Medical History Date Comments GERD (gastroesophageal reflux disease) Myocardial infarction (HCC) Hypertension Hyperlipidemia Coronary artery disease Hearing problem Atrial fibrillation (HCC) Family History Medical History Relation Name Comments No Known Problems Neg Hx Social History Tobacco Use Types Packs/Day Years Used Date Smoking Tobacco: Never Smokeless Tobacco: Never Alcohol Use Standard Drinks/Week Comments Yes 0 (1 standard drink = 0.6 oz pur e alcohol) moderate PHQ-2 Answer Date Recorded PHQ-2 Total Score (If total score is 3 or more points, staff should administer the PHQ-9) 0 06/06/2020 Personal Safety Answer Date Recorded Getting School Help Needed Not on file 12/28 Sex and Gender Information Value Date Recorded Sex Assigned at Not on file Legal Sex Male 3:51 PM CDT Gender Identity Not on file Sexual Orientation Not on file Obstetrics History Last Filed Vital Signs Vital Sign Reading Time Taken Comments Blood Pressure 145/88 06/28/2020 3:09 PM CDT Pulse 81 06/28/2020 3:09 PM CDT Temperature 36.9 C (98.5 F) 07/27/2020 1:45 PM CDT Respiratory Rate 16 06/06/2020 9:47 AM CDT Oxygen Saturation 99% 06/06/2020 9:47 AM CDT Inhaled Oxygen Concentration - - Weight 88.5 kg (195 lb) 06/28/2020 3:09 PM CDT Height 190.5 cm (6' 3) 06/28/2020 3:09 PM CDT Body Mass Index 24.37 06/28/2020 3:09 PM CDT Plan of Treatment Not on file Insurance [facility] Advance Directives For more information, please contact: [phone] * Full Code (Latest Code Status on File) Date Activated Date Inactivated Comments 05/16/2020 7:20 PM 05/17/2020 7:49 PM Care Teams Manufacturing Technology Professor Relationship Specialty Start Date End Date No, Physician PCP - General 09/21/20 [place] [address] [place] [address] Referring Physician Cardiovascular Disease 12/29/19 [place] [address] [address] [facility] [address] [place] [address] Consulting Physician Pulmonary Disease 05/17/20
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
--- OUTSIDE RECORDS SUMMARY | 2025-05-03 15:32 | XMS_ITS | Encounter Summary ---
Author Organization [facility] Address [address] [place] [address] Phone Care Team Providers Care Rn Home Care Name Role Phone Carlos Stephen MD Unavailable Barb Singh APRN, CNP Primary Care Provider + Encounter Details Date Type Department Care Team (Late st Contact Info) Description 04/06/2025 Telephone [facility] [address] [place] [address] Carlos Stephen MD [address] [address] Social History Tobacco Use Types Packs/Day Years Used Date Smoking Tobacco: Never Smokeless Tobacco: Never Alcohol Use Standard Drinks/Week Comments Yes 0 (1 standard drink = 0.6 oz pur e alcohol) occasional Sex and Gender Information Value Date Recorded Sex Assigned at Not on file Legal Sex Male 1:03 PM CDT Gender Identity Not on file Sexual Orientation Not on file documented as of this encounter Miscellaneous Notes * Telephone Encounter - Ria Conley - 04/06/2025 11:49 AM CDT Prostate mri results in media. Please review, pts calling for results. documented in this encounter Plan of Treatment Not on file documented as of this encounter Visit Diagnoses Not on filedocumented in this encounter Care Teams Rn Home Care Relationship Specialty Start Date End Date Barb Singh APRN, LATISHA [address] [place] [address] PCP - General Primary Care 02/24/25 Carlos Stephen MD [address] [facility] [address] [place] [address] Consulting Physician Urology 02/22/25 documented as of this encounter
--- OUTSIDE RECORDS SUMMARY | 2025-05-03 15:32 | XMS_ITS | Referral Summary ---
Author Organization [facility] Physician Office Building [address] [place] [address] Care Team Providers Care Information Technology Administrator Name Role Phone Ben Aceves MD Unavailable [phone] Surendra Ramos MD Unavailable [phone] No, Physician Primary Care Provider [phone] Allergies Active Allergy Reactions Criticality Noted Date Comments Sulfa (Sulfonamide Antibiotics) Rash Medium 01/12 Medications dilTIAZem XR (dilTIAZem CD) 240 mg 24 hr capsule Take 1 capsule (240 mg total) by mouth daily 30 capsule Active clopidogreL (PLAVIX) 75 mg tabletIndications:Coron vicente artery disease of lone pine artery of [place] heart with stable angina pectoris Take 1 [...] 2 diabetes mellitus (HCC),Coronary artery disease of [place] artery of [place] heart with stable angina pectoris Take 1 tablet (100 mg total) by mouth daily 90 tablet 3 020 Active rosuvastatin (CRESTOR) 40 mg tabletIndications:Dysli pidemia with low high density lipoprotein (HDL) cholesterol with hypertriglyceridemia due to type 2 diabetes mellitus (HCC),Type 2 diabetes mellitus without complication, without long-term current use of insulin (HCC),Coronary artery disease of lone pine artery of [place] pine heart with stable angina pectoris Take 1 [...] Patient would like to switch to a [facility] closer to home. Referral placed. Assessment & [...] with Crestor and Zetia. D/C Vytorin. Old MD (myocardial infarction) 04/15/2019 Anxiety 02/12/2019 BPH (benign [...] artery disease of n ative artery of lone pine heart with stable angina pectoris 05/20/2015 Assessment & Plan (06/06/2020 10:38 AM CDT): Asx. Cont current mgmt. Assessment & Plan (05/16/2020 7:18 PM CDT): S/p CABG 2014. Assessment & Plan (12/31/2019 4:35 PM CDT): Asx. Managed by cardiology. Patient mentioned towards the end of his visit that he may be interested in going to a [facility] in town. Will think about it. Resolved Problems Problem Noted Date Diagnosed Date Resolved Date Pneumonia 05/16/2020 06/06/2020 Assessment & Plan (05/16/2020 7:13 PM CDT): RML per CT performed at [facility]. Initiated on IV azithromycin and continue on [...] 13 08/27/2019 Tdap 08/27/2019 ZOSTER LIVE 04/27/2015 Social History Tobacco Use Types Packs/Day Years [...] Plan of Treatment Not on file Insurance HEALTHCARE Advance Directives For more information, please contact: [phone] * Full Code (Latest Code Status on File) Date Activated Date Inactivated Comments 05/16/2020 7:20 PM 05/17/2020 7:49 PM Care Teams Information Technology Administrator Relationship Specialty Start Date End Date No, Physician PCP - General 09/21/20 [place] [address] [place] [address] Referring Physician Cardiovascular Disease 12/29/19 [place] [address] [address] [facility] [address] [place] [address] Consulting Physician Pulmonary Disease 05/17/20
--- OUTSIDE RECORDS SUMMARY | 2025-05-03 15:32 | XMS_ITS | Encounter Summary ---
Author Organization [facility] Address [address] [place] [address] Care Team Providers Care Slot Key Person Name Role Phone Isabela Augustine Primary Care Provider [phone] Reason for Visit * Reason Onset Date Comments GI Problem 05/03/2025 Encounter Details Date Type Department Care Team (Late st Contact Info) Description 05/03/2025 Telephone [facility] - [address] [facility] [address] [id number] [facility] [address] [place] [address] [place] [address] [facility] [place] [address] GI Problem Social History Tobacco Use Types Packs/Day Years Used Date Smoking Tobacco: Never Smokeless Tobacco: Never Alcohol Use Standard Drinks/Week Comments Yes 4 (1 standard drink = 0.6 oz pur e alcohol) Sex and Gender Information Value Date Recorded Sex Assigned at Not on file Legal Sex Male 12:24 PM CDT Gender Identity Not on file Sexual Orientation Not on file documented as of this encounter Miscellaneous Notes * Telephone Encounter - Faviola Duncan - 05/03/2025 12:46 PM CDT Spoke with patient. He is going to call his pcp * Telephone Encounter - Faviola Duncan - 05/03/2025 12:46 PM CDT Images from the original note were not included. Nidhi Valentine, WEED CONTROL INSPECTOR to Me (Selected Message) SH 05/03/25 12:00 PM Given his symptoms, would likely be beneficial for him to see his PCP and see if he needs IV fluidsand for further evaluation. Thanks * Telephone Encounter - Faviola Duncan - 05/03/2025 9:14 AM CDT Spoke with patient. States that he has been vomiting last 3 days, can't keep anything down, not even meds. Has been able to keep some water down. No fever or chills. No blood or coffee ground emesis.Does note it looks dark green in color. No diarrhea, or constipation. Some abdominal pain but it comes and goes and isn't significant. Slight nausea at times,but mostly no nausea prior to vomiting. States that today seems to be a bit better. States he has so far kept down toast this morning. He does not want to go to ER unless he really has to. documented in this encounter Plan of Treatment Upcoming Encounters Date Type Department Care Team (Late st Contact Info) Description 05/28/2025 9:30 AM CDT Office Visit [facility] Urology [facility] [address] [facility] [address] [place] [address] [place] [address] [facility] [address] [place] [address] 07/09/2025 3:00 PM CDT Office Visit [facility] Heart and Vascular - [address] [facility] [address] [address] [facility] [address] [place] [address] Diamond Peterson FNP [address] [facility] [address] [place] [address] documented as of this encounter Visit Diagnoses Not on filedocumented in this encounter Care Teams Slot Key Person Relationship Specialty Start Date End Date Isabela Augustine DO PCP - General Family Practice 12/22/19 documented as of this encounter
--- OUTSIDE RECORDS SUMMARY | 2025-05-03 15:32 | XMS_ITS | Clinical Summary ---
Author Organization [facility] Address [address] [facility] [place] [address] Care Team Providers Care Dairy Science Teacher Name Role Phone Unavailable Primary Care Provider Unavailabl e Social History Tobacco Use Types Packs/Day Years Used Date Smoking Tobacco: Never Assessed Sex and Gender Information Value Date Recorded Sex Assigned at Not on file Legal Sex Male 12:14 AM PST Gender Identity Not on file Sexual Orientation Not on file Plan of Treatment Not on file
--- OUTSIDE RECORDS SUMMARY | 2025-05-03 15:32 | XMS_ITS | Continuity of Care Document ---
Author Organization [facility] Address [address] [place] [address] Phone Care Team Providers Care Metal Wire Coating Operator Name Role Phone Leonardo Grimes MD Unavailable Unavailable Allergies, Adverse Reactions, Alerts Substance Reaction Status Criticality No Known Allergies Active No Inform ation Medications Medication Instructions Dosage Effective Dates (start - stop) Status Comments Verona 5 mg-325 mg tablet take 1-2 tablets by oral route every 8 hours as needed for pain - Active AMLODIPINE BESYLATE (unknown strength) Not Available - Active DILTIAZEM HCL (unknown strength) Not Available - Active LIPITOR (unknown strength) Not Available - Active CLOPIDOGREL (unknown strength) Not Available - Active Procedures Procedure Date OFFICE/OUTPATIENT VISIT EST OFFICE/OUTPATIENT VISIT EST RADEX SHAQUILLE COMPL MINIMUM 2 VIEWS 016 OFFICE CONSULTATION Advance Directives Directive Yes / No Effective Date File Name No Information Encounters Encounter Description Practice Location Reason(s) For Visit Diagnoses Date Provider Providers Copied on Encounter OFFICE/OUTPAT IENT VISIT EST [facility], [address], [address], [place] tel:[phone] [facility] Adhesive capsulitis of left shoulder 6 Dusek Leonardo. [address] [place], [place], [id number] . tel: [phone] [facility], [address] [facility] [address] [place] [address], [address], [place] tel:[phone] [facility] No Information 6 Dus[address]as Patterson. [address] [place], [place], [id number] . tel: [phone] OFFICE/OUTPAT IENT VISIT EST [facility], [address], [address], [place] tel:[phone] [facility] Adhesive capsulitis of left shoulder 6 Dionisio Olivares. [address] [facility] [address], [id number] . tel:[phone] OFFICE CONSULTATION [facility], [address] [address], [place], [address], [place] tel:[phone] [facility] Pain in left shoulderAdhesive capsulitis of left shoulder 6 Cornelio Patterson. [address] [place], [place], [id number] . tel:[phone] Referring Provider: Yaneth Carey, [address] [place] [address], [address] . tel:[phone] Family History Family Member Type Diagnosis Age At Onset Mother Problem (finding) Cancer, unknown Payers Payer name Insurance type Covered republican ID Authorirvinga angelo(s) Blue Access PPO [id number] [id number] Social History Type Description Quantity Date Captured Comments Alcohol Use Details Unknown Caffeine Use Details Unknown Tobacco Use Status No Information Smoking Status No Information Sex Male Chief Complaint And Reason For Visit No Information Reason For Referral Reason For Referral No Information Plan Of Treatment Date Type Action Status Referral Ordered: RADEX SHAQUILLE COMPL MINIMUM 2 VIEWS LT ordered History Of Present Illness Encounter Date Complaint History Of Prese nt Illness No Information Functional Status Date Functional Assessmen t No Information Instructions Date Instruction Additional Infor heather Home exercise program. Related t o Adhesive capsulitis of left shoulder Discussed treatment options Rela sarah to Adhesive capsulitis of left shoulder Call for increase in pain Relate d to Adhesive capsulitis of left shoulder Take medication as directed. Rel ated to Adhesive capsulitis of left shoulder Discussed treatment options Rela sarah to Adhesive capsulitis of left shoulder Assessments Type Assessment Date assessment Adhesive capsulitis of left shou lder Patient Care Teams Name Effective Dates (start - stop) Status Members No Information
--- OUTSIDE RECORDS SUMMARY | 2025-05-03 15:32 | XMS_ITS | Clinical Summary ---
Author Organization [facility] Address [address] [place] [address] Phone Care Team Providers Care Accounting Representative Name Role Phone Carlos Stephen MD Unavailable Barb Singh APRN, LATISHA Primary Care Provider + Medications Tiadylt ER 360 MG CAPSULE SR 24 HR Take 360 mg by mouth daily. 01/12/2025 Active ezetimibe (ZETIA) 10 MG Tablet Take 10 mg by mouth daily. 01/04/2025 Active tamsulosin (FLOMAX) 0.4 MG Capsule take 1 capsule by mouth every evening Active oxybutynin (DITROPAN-XL) 10 MG TABLET SR 24 HR Take 10 mg by mouth daily. Active losartan (COZAAR) 100 MG Tablet Take 100 mg by mouth daily. Active metoprolol Succinate (TOPROL-XL) 100 MG TABLET SR 24 HR Take 100 mg by mouth daily. Active atorvastatin (LIPITOR) 80 MG Tablet Take 80 mg by mouth daily. Active amLODIPine (NORVASC) 2.5 MG Tablet Take 2.5 mg by mouth daily. Active Dapagliflozin Propanediol (FARXIGA PO) Take 10 mg by mouth. Active Encounters Date Type Department Care Team Description 04/21/2025 9:00 AM CDT Office Visit [facility] [address] [place] [address] Carlos Stephen MD Elevated PSA (Primary Dx) Discharge Disposition: Discharged to home or Selfcare 04/21/2025 Travel 04/06/2025 Telephone [facility] [address] [place] [address] Carlos Stephen MD 03/24/2025 Results Follow-Up [facility] [address] [place] [address] Carlos Stephen MD PSA SCREEN 03/24/2025 Telephone [facility] [address] [place] [address] Carlos Stephen MD 03/23/2025 Travel 03/02/2025 Telephone [facility] [address] [place] [address] Carlos Stephen MD 02/24/2025 9:15 AM CDT Office Visit [facility] [address] [place] [address] Carlos Stephen MD Malignant neoplasm of prostate (HCC) (Primary Dx) Discharge Disposition: Discharged to home or Selfcare 02/24/2025 Travel from Last 3 Months Social History Tobacco Use Types Packs/Day Years Used Date Smoking Tobacco: Never Smokeless Tobacco: Never Tobacco Cessation:Counseling Given: Not Answered Alcohol Use Standard Drinks/Week Comments Yes 0 (1 standard drink = 0.6 oz pur e alcohol) occasional Sex and Gender Information Value Date Recorded Sex Assigned at Not on file Legal Sex Male 1:03 PM CDT Gender Identity Not on file Sexual Orientation Not on file Last Filed Vital Signs Vital Sign Reading Time Taken Comments Blood Pressure 158/95 02/24/2025 9:26 AM CDT Pulse 93 02/24/2025 9:26 AM CDT Temperature - - Respiratory Rate 18 04/21/2025 9:34 AM CDT Oxygen Saturation 97% 02/24/2025 9:26 AM CDT Inhaled Oxygen Concentration - - Weight 89.4 kg (197 lb) 04/21/2025 9:34 AM CDT Height 190.5 cm (6' 3) 04/21/2025 9:34 AM CDT Body Mass Index 24.62 04/21/2025 9:34 AM CDT Plan of Treatment Health Maintenance Due Date Last Done Comments Hepatitis C Virus (HCV) Screening 1955 SARS-COV-2 Immunization (#1) 1959 Cologuard 1999 Immunochemical Fecal Occult Blood 1999 Respiratory Syncytial Virus (RSV) Immunization (Adult) (1 - Risk 60-74 years 1-dose series) 2014 Pneumococcal Immunization (5 0+ years) (2 of 2 - PPSV23) 10/22/2019 08/27/2019 Zoster Immunization (2 of 2) 04/17/202507/2025, 04/27/2015 Influenza Immunization (#1) 06/14/202506/14, 08/27/2019 Colonoscopy 03/31/2028 03/31/2018 Colorectal Cancer Screening 03/31/2028 TdaP Immunization Completed 08/27/2019 Hepatitis B Immunization Aged Out No longer eligible based on patient's age to complete this topic Human Papillomavirus (HPV) Immunization Aged Out No longer eligible b ased on patient's age to complete this topic Meningococcal Immunization (ACWY) Aged Out No longer eligible b ased on patient's age to complete this topic Rotavirus Immunization Aged Out No lo nger eligible based on patient's age to complete this topic Procedures Procedure Name Priority Date/Time Associated Diagnosis Comments POCT UA AUTOMATED W/O MICRO Routine 04/21/2025 9:15 AM CDT Elevated PSA PSA SCREEN Routine 03/23/2025 2:52 PM CDT Screening PSA (prostate specific antigen) POCT UA AUTOMATED W/O MICRO Routine 02/24/2025 9:33 AM CDT Malignant neoplasm of prostate (HCC) SANDRA,POST-VOID RES,US,NON-IMAGING Routine 02/24/2025 9:15 AM CDT Malignant neoplasm of prostate (HCC) from Last 3 Months Results * (ABNORMAL) POCT UA AUTOMATED W/O MICRO (04/21/2025 9:15 AM CDT) Only the most recent of2 resultswithin the time period is included. POC UA SPECIFIC GRAVITY 1.000 URINE PH 7.0 5.0 - 9.0 POC URINE LEUKOCYTES Negative Negative Saad/uL POC URINE NITRITE Negative Negative POC URINE PROTEIN Negative Negative mg/dL POC URINE GLUCOSE >1000 mg/dL(A) Negative, Norm mg/dL POC URINE KETONE Negative Negative mg/dL POC URINE UROBILINOGEN Norm Norm, 0.2 E.U./dL (mg/dL), 1 E.U./dL (mg/dL) POC URINE BILIRUBIN Negative Negative mg/dL POC URINE BLOOD INSTRUMENT Negative Negative Pepe/uL POC URINE COLOR Light Yellow POC URINE CLARITY Clear Urine 04/21/2025 9:15 AM CDT Carlos Stephen MD POINT OF CARE TESTING (MANUAL) F inal Result * (ABNORMAL) PSA SCREEN (03/23/2025 2:52 PM CDT) PSA SCREEN, TOTAL 12.31(H) <4.00 ng/mL 03/23/2025 4:39 PM CDT [facility] Blood Venipuncture / Unknown 03/23/2025 2:52 PM CDT 03/23/2025 3:52 PM CDT Narrative [facility] - 03/23/2025 4:39 PM CDT The ALINITY Total PSA assay is a Chemiluminescent Microparticle Immunoassay (CMIA) for the quantitative determination of total PSA (both free PSA and PSA complexed to [id number]) in human serum. Total PSA values obtained with different assay methods, including Blackmon PSA assays, cannot be used interchangeably. Carlos Stephen MD CHEMISTRY ORDERABLES Final Resul t [facility] [address] [place] [address] * SANDRA,POST-VOID RES,US,NON-IMAGING (02/24/2025 9:15 AM CDT) Narrative Ria Conley 02/24/2025 9:15 AM CDT Ria Conley 02/24/2025 12:34 PM POCT Bladder Scan collected per standing order of Dr. Stephen on 02/24/2025 PVR= 137 ML Carlos Stephen MD [place] - SURGERY Final Result from Last 3 Months Insurance MEDICARE [id number] Care Teams Accounting Representative Relationship Specialty Start Date End Date Barb Singh, DEMETRIUS, HEADING MATCHER AND ASSEMBLER [address] [place] [address] [address] [place] [address] PCP - General Primary Care 02/24/25 Carlos Stephen MD [address] [facility] [address] [place] [id number] Consulting Physician Urology 02/22/25
[2025-05-03 16:42] LABS: Hematocrit 28.2 % (42.0-52.0); Hemoglobin 9.4 g/dL (14.0-18.0); Immature Granulocyte Percent A 0.8 % (0-0.5); Immature Platelet Fraction Pct 8.8 % (0.9-11.2); Lymphocytes Absolute Auto 0.85 K/mm3 (0.9-3.2); Mean Corpuscular HGB Conc 33.3 g/dl (32-36); Mean Corpuscular Hemoglobin 28.6 pg (26-34); Mean Corpuscular Volume 85.7 fl (80-100); Nucleated Red Blood Cells Absolute Auto 0.000 K/mm3 (0.0-0.012); Nucleated Red Blood Cells Perc 0.0 % (0.0-0.2); Platelet Count Result 130 k/mm3 (150-375); Red Blood Count 3.29 M/mm3 (4.6-6.20); White Blood Count 19.0 K/mm3 (4.5-10.0)
--- OUTSIDE RECORDS SUMMARY | 2025-05-03 16:55 | XMS_ITS | Clinical Summary ---
Author Organization [facility] [address] [facility] Address [address] [place] [address] Care Team Providers Care Guest Services Officer Name Role Phone Isabela Augustine Primary Care Provider [phone] Allergies Active Allergy Reactions Criticality Noted Date [...] anticoagulation 10/21/2019 Coronary artery disease invo lving [place] coronary artery of [place] heart with unstable angina pectoris 04/15/2019 Palpitations 04/15/2019 Dyslipidemia 04/15/2019 Old DE (myocardial infarction) 04/15/2019 Anxiety 02/12/2019 Atrial fibrillation with RVR 02/12/2019 BPH (benign prostatic hyperplasia) 02/12/2019 Clicking tinnitus 02/12/2019 Essential hypertension 02/12/2019 GERD (gastroesophageal reflux disease) 9 Type 2 diabetes mellitus 02/12/2019 Benign colon polyp 03/31/2018 History of coronary artery bypass surgery 2014 Coronary artery disease invo lving [place] coronary artery with unstable angina pectoris 05/20/2015 Hyperlipidemia 05/20/2015 Resolved Problems Problem Noted Date Diagnosed Date Resolved Date Right inguinal hernia 04/09/20192018 Left main coronary artery disease 05/20/2015 08/24/2019 Encounters Date Type Department Care Team Description 05/03/2025 Telephone [facility] - [address] [facility] 102 [address] [address] [facility] 102 [place] [address] Bhumi Jaeger MD GI Problem 04/30/2025 Telephone [facility] - [address] [facility] 102 [address] [place] [address] Bhumi Jaeger MD Referral 04/29/2025 9:48 AM CDT Anesthesia Event [facility] [address] [place] [address] Cliff Araiza MD Wagner, Caitlin E, AA-Jonathan 04/29/2025 9:30 AM CDT - 04/29/2025 10:30 AM CDT Surgery [facility] [address] [place] [address] Bhumi Jaeger MD ULTRASOUND ENDOSCOPIC 04/29/2025 8:50 AM CDT - 04/29/2025 12:36 PM CDT Hospital Encounter [facility] [address] [place] [address] Bhumi Jaeger MD Lymphadenopathy Discharge Disposition: Home or Self Care 04/28/2025 External Device Data STL ABSTRACTION Provider, Abstract 04/27/2025 External Device Data STL ABSTRACTION Provider, Abstract 04/12/2025 Orders Only [facility] - [address] [facility] 202 [address] [facility] 202 [place] [address] Shae Dinh MD Longstanding persistent atrial fibrillation ([facility]/HCC) 04/09/2025 Telephone [facility] - [address]80 [facility] 102 [address] [facility] 102 [place] [address] Bhumi Jaeger MD NURSE ASSESSMENT 04/09/2025 Telephone [facility] - [address] [facility] [address] [address] Bhumi Jaeger MD Medication Question (Warfarin) 04/09/2025 Orders Only [facility] - [address]40 [facility] [address] [address] Bhumi Jaeger MD 04/08/2025 Telephone [facility] - [address] [facility] [address] [address] [facility] 102 [place] [address] Bhumi aJeger MD Needs Orders Written 04/08/2025 Chart Note [facility] - [address] [place] [address] Myron Cyndie L 04/08/2025 Telephone [facility] - [address] [place] [address] Shae Dinh MD message 04/07/2025 Telephone [facility] - [address] [place] [address] Shae Dinh MD Abnormal Imaging Results 04/06/2025 7:48 AM CDT - 04/06/2025 11:59 PM CDT Hospital Encounter [facility] [address] [place] [address] Shae Dinh MD Discharge Disposition: Home or Self Care 04/06/2025 Telephone [facility] - [address] [place] [address] Shae Dinh MD Imaging Results 04/05/2025 Orders Only [facility] - [address] [place] [address] Shae Dinh MD Longstanding persistent atrial fibrillation ([facility]/HCC) 03/30/2025 External Device Data STL ABSTRACTION Provider, Abstract 03/29/2025 Orders Only [facility] - [address] [place] [address] Shae Dinh MD Longstanding persistent atrial fibrillation ([facility]/HCC) 03/22/2025 Telephone [facility] - [address] [place] [address] Shae Dinh MD test results 03/22/2025 Orders Only [facility] - [address] [place] [address] Shae Dinh MD Longstanding persistent atrial fibrillation ([facility]) 03/19/2025 Telephone [facility] - [address] [place] [address] Ben Aceves MD medical question 03/18/2025 Telephone [facility] - [address] [place] [address] Shae Dinh MD image 03/18/2025 Telephone [facility] - [address] [place] [address] Shae Dinh MD Further testing 03/17/2025 12:00 PM CDT - 03/17/2025 11:59 PM CDT Hospital Encounter [facility] [place] [address] [place] [address] Shae Dinh MD Discharge Disposition: Home or Self Care 03/15/2025 Orders Only [facility] - [address] [place] [address] Shae Dinh MD Longstanding persistent atrial fibrillation ([facility]) 03/09/2025 External Device Data STL ABSTRACTION Provider, Abstract 03/08/2025 Orders Only [facility] - [address] [place] [address] Shae Dinh MD Longstanding persistent atrial fibrillation ([facility]) 03/04/2025 External Device Data STL ABSTRACTION Provider, Abstract 03/01/2025 Orders Only [facility] - [address] [place] [address] Shae Dinh MD Longstanding persistent atrial fibrillation (CMS/HCC) 02/22/2025 Orders Only [facility] - [address] [place] [address] Shae Dinh MD Longstanding persistent atrial fibrillation ([facility]/HCC) 02/15/2025 Orders Only [facility] - [address] [place] [address] Shae Dinh MD Longstanding persistent atrial fibrillation ([facility]/HCC) 02/11/2025 10:30 AM CDT Office Visit [facility] - [address] [place] [address] Shae Dinh MD Longstanding persistent atrial fibrillation ([facility]/HCC) (Primary Dx); Bradycardia; Anticoagulation management encounter 02/11/2025 Chart Note [facility] - [address] [place] [address] Shae Dinh MD 02/11/2025 Prep for Surgery [facility] - [address] [place] [address] Shae Dinh MD Longstanding persistent atrial fibrillation ([facility]/HCC) (Primary Dx) 02/05/2025 Telephone [facility] [address] [facility] [address] [place] [address] Ben Aceves MD Medication Question from Last [...] Description 05/28/2025 9:30 AM CDT Office Visit [facility] [address] [facility] 260 [place] [address] [place] [address] [facility] 260 [place] [address] 07/09/2025 3:00 PM CDT Office Visit [facility] - [address] [facility] 300 [address] [facility] 300 [place] [address] Diamond Peterson FNP [address] [facility] 300 [place] [address] Health Maintenance Due Date Last [...] 08/27/2019, 04/27/2015 Medical Devices Implanted Type Area Equipment Maintenance Tech Device Identifier Shelf Expiration Date Model / Serial / Lot Mesh Lap Film Progrip Slf Lp [id number] - Sna Implanted:Qty: 1 on 04/24/2019 by Erik Garvin DO at [facility] Mesh Right: Abdomen [employer] - [employer] 07/13/2021 [id number] / NA / [id number] Description:REQ [id number] Procedures Procedure Name Priority Date/Time Associated Diagnosis Comments IGG SUBCLASSES Routine 04/30/2025 1:01 PM CDT Lymphadenopathy Intraabdominal mass UPPER ENDOSCOPIC ULTRASOUND REPORT 04/29/2025 11:16 AM CDT [place] EDG US EXAM SURGICAL ALTER STOM DUODENUM/JEJUNUM [...] 11:18 AM CDT Coronary artery disease involving [place] coronary artery of [place] heart without angina pectoris Longstanding persistent atrial fibrillation (CMS/HCC) Dyslipidemia Dyspnea on exertion Aneurysm of ascending aorta without rupture DIABETES EYE EXAM Routine 11/04/2019 HEMOGLOBIN A1C Routine 08/27/2019 11:12 AM EXECUTIVE MEETING MANAGER Type 2 diabetes mellitus without complication, without long-term current use of insulin (CMS/HCC) ENDOSCOPY, COLON, SCREENING Routine 03/31/2018 from Last 3 Months or Most Recently Relevant to Health Maintenance Results * (ABNORMAL) IGG SUBCLASSES (04/30/2025 1:01 PM CDT) IGG SUBCLASS 1 290(L) 382 - 929 mg/dL [facility] IGG SUBCLASS 2 173(L) 241 - 700 mg/dL [facility] IGG SUBCLASS 3 37 22 - 178 mg/dL [facility] IGG SUBCLASS 4 5.8 4.0 - 86.0 mg/dL [facility] IGG 521(L) 600 - 1540 mg/dL [facility] Comment: Test Performed at: [facility] [employer] [address] [facility] [address] [place], [place] Jose Ospina M.D.,PhD Blood 04/30/2025 1:01 PM CDT 04/30/2025 1:01 PM CDT us Bhumi Jaeger MD CHEMISTRY ORDERABLES Final Resu lt [facility] [phone] [facility] [address] [facility] [address] [place], [place] * UPPER ENDOSCOPIC ULTRASOUND REPORT (04/29/2025 11:16 AM CDT) Narrative Procedure Note Bhumi Jaeger MD - 04/29/2025 11:16 AM CDT [facility] Endoscopy Patient Name: Ilia Sarabia Procedure Date: [...] transduodenal approach. A stylet was used. A tool or die drawing checker was present and performed a preliminary cytologic [...] an oncologist. Procedure Code(s): --- Professional --- 22632, Esophagogastroduodenoscopy, flexible, transoral; with transendoscopic ultrasound-guided intramural or transmural fine needle aspiration/biopsy(s), (includes endoscopic ultrasound examination limited to the esophagus, stomach or duodenum, and adjacent structures) CPT copyright 2020 [employer]. All rights reserved. The codes documented in this report are preliminary and upon director of tax services review may be revised to meet current compliance requirements. Bhumi Jaeger MD 04/29/2025 11:16:08 AM This report has been signed electronically. Number of Addenda: [phone] [id number] [place] [address] us Bhumi Jaeger MD GI PROCEDURE ORDERABLES Final R esult * CT ABDOMEN PELVIS W CONTRAST (04/06/2025 8:40 AM CDT) Anatomical Region Laterality Modality Abdomen Computed Tomogra phy 04/06/2025 8:28 AM CDT Addenda Addendum by Juan Chaudhary MD on 04/06/2025 10:52 AM CDT A [facility] Priority Outpt message has been communicated to SHAE DINH via the [employer] Critical Results application on 04/06/2025 10:50 AM, Message ID [id number]. Impressions 04/06/2025 10:03 AM CDT IMPRESSION: 1. Enhancing retroperitoneal mass encasing the aorta and inferior vena cava with surrounding fat stranding and prominent mesenteric lymph nodes. Findings are highly concerning for lymphoma. Tissue sampling recommended. Endoscopic ultrasound may be the most direct approach. DICTATION LOCATION: Location [address] [place] [address] Narrative 04/06/2025 10:03 AM CDT EXAMINATION: CT [...] 0.60 - 1.30 mg/dL 04/06/2025 8:24 AM [facility] Comment:The GFR result is no t clinically significant on patients <18 or >70 years of age. GFR POC 46 mL/min/1.7 3 sq meter 04/06/2025 8:24 AM [facility] Comment:eGFR calculated with 2020 CKD-EPI equation. Vegetarian diet, extremely high or low muscle mass, and may affect results. Cystatin C with Glomerular Filtration Rate is a suitable alternative for these patients. Blood, whole 04/06/2025 8:24 AM CDT 04/06/2025 8:45 AM CDT Shae Dinh MD POINT OF CARE TESTING Final Result Performing Organization Address City/State/ZIP [facility] Phone Number [facility] CLIA# [id number] [address] [place] [address] * (ABNORMAL) PROTIME-INR (03/18/2025 2:21 PM CDT) Only the most recent of4 resultswithin the time period is included. INR 2.7(H) [employer] abigail Cook Comment: Reference Range 0.9-1.1 Moderate-intensity Warfarin Therapy 2.0-3.0 Higher-intensity Warfarin Therapy 3.0-4.0 PROTIME 27.5(H) 9.0 - 11.5 sec [employer] abigail Cook Comment: For additional information, please refer to http://education.Metavana/faq/YAH669 (This link is being provided for informational/ educational purposes only.) AN UPDATE OR CORRECTION HAS BEEN MADE TO NAME Test Performed at: [place] [address] [place] [address] Ankur Ursula Vo Blood 03/18/2025 2:21 PM CDT 03/18/2025 2:21 PM CDT Shae Dinh MD HEMATOLOGY ORDERABLES Final Result [facility] [phone] [place] [address] [address] [place] [address] * CT HEART CARD STRUC W 3D [...] extent of the pathology. DICTATION LOCATION: Location [address] [place] [address] Kurt [facility] 03/17/2025 2:37 PM CDT EXAMINATION: CT HEART [...] - 1.30 mg/dL 03/17/2025 12:58 PM CDT [facility] POINT OF CARE Comment:The GFR result is no t clinically significant on patients <18 or >70 years of age. GFR POC 43 mL/min/1.7 3 sq meter 03/17/2025 12:58 PM CDT [facility] POINT OF CARE Comment:eGFR calculated with 2020 CKD-EPI equation. Vegetarian diet, extremely high or low muscle mass, and may affect results. Cystatin C with Glomerular Filtration Rate is a suitable alternative for these patients. Blood, whole 03/17/2025 12:5 8 PM CDT 03/17/2025 1:02 PM CDT Shae Dinh MD POINT OF CARE TESTING Final Result [facility] POINT OF CARE CLIA # [id number] [address] [place] [address] * (ABNORMAL) LIPID PANEL (01/07/2025 11:18 AM CDT) CHOLESTEROL 81 <200 mg/dL [employer] [facility] HDL 27(L) > OR = 40 mg/dL [employer] TRIGLYCERIDE 60 <150 mg/dL [facility] LDL CALCULATED 40 mg/dL (calc) [employer] [facility] Cook Comment: Reference range: <100 Desirable range <100 mg/dL for primary prevention; <70 mg/dL for patients with CHD or diabetic patients with > or = 2 CHD risk factors. LDL-C is now calculated using the Darya calculation, which is a validated novel method providing better accuracy than the Friedewald equation in the estimation of LDL-C. Shantanu FULTON et al. SHALA. 2013;310(19): 8117-0397 (http://education.TalkShoe/faq/EKK950) CHOL/HDL RATIO 3.0 <5.0 (calc) [facility] abigail Cook NON-HDL CHOLESTEROL 54 <130 mg/dL (calc) [facility] [employer] abigail Joey Comment: For patients with diabetes plus 1 major ASCVD risk factor, treating to a non-HDL-C goal of <100 mg/dL (LDL-C of <70 mg/dL) is considered a therapeutic option. Test Performed at: [place] [address] [place] [address] JulySharona Paniagua Blood 01/07/2025 11:1 8 AM CDT 01/07/2025 11:18 AM CDT Ben Aceves MD CHEMISTRY ORDERABLES Final Re sult [facility] [phone] [place] [address] [place] [address] * DIABETES EYE EXAM (11/04/2019) Abstract Provider HEALTH MAINTENANCE Edited Resu lt - Final [facility] - [address] [place] [address]# [id number] [address] [place] [address] * HEMOGLOBIN A1C (08/27/2019 11:12 AM EXECUTIVE MEETING MANAGER) HEMOGLOBIN A1C 5.3 <=5.6 % 08/27/2019 1:49 PM EXECUTIVE MEETING MANAGER [facility] EST. AVG GLUCOSE, A1C 105 mg/dL 08/27/2019 1:49 PM EXECUTIVE MEETING MANAGER [facility] Blood Venipuncture / Unknown 08/27/2019 11:12 AM EXECUTIVE MEETING MANAGER 08/27/2019 11:12 AM EXECUTIVE MEETING MANAGER Narrative [facility] - 08/27/2019 1:49 PM EXECUTIVE MEETING MANAGER HGB A1C INTERPRETATION NORMAL: <5.7% PRE-DIABETES: 5.7 - 6.4% DIABETES: 6.5% OR GREATER us Dermond Carlos DO CHEMISTRY ORDERABLES Final Resu lt [facility] CLIA# [id number] [address] [place] [address] * ENDOSCOPY, COLON, SCREENING (03/31/2018) us Abstract Provider GI PROCEDURE ORDERABLES Final Result [facility] CLIA# [id number] [address] [place] [address] from Last 3 Months or Most Recently Relevant to Health Maintenance Insurance [facility] MCR Advance Directives For more information, please contact: [phone] * Full Code (Latest Code Status on File) Date Activated Date Inactivated Comments 11/17/2019 11:33 AM 11/17/2019 4:51 PM * Full Code Date Activated Date Inactivated Comments 04/24/2019 6:48 PM 04/25/2019 2:42 AM * Full Code Date Activated Date Inactivated Comments 04/24/2019 2:56 PM 04/24/2019 6:48 PM * Full Code Date Activated Date Inactivated Comments 04/24/2019 1:48 PM 04/24/2019 2:55 PM Care Teams Guest Services Officer Relationship Specialty Start Date End Date Isabela Augustine DO PCP - General Family Practice 12/22/19
--- OUTSIDE RECORDS SUMMARY | 2025-05-03 16:55 | XMS_ITS | Encounter Summary ---
Author Organization [facility] Address [address] [place] [address] Care Team Providers Care Slurry Plant Operator Name Role Phone Isabela Auugstine Primary Care Provider [phone] Reason for Visit * Reason Onset Date Comments GI Problem 05/03/2025 Encounter Details Date Type Department Care Team (Late st Contact Info) Description 05/03/2025 Telephone [facility] - [address] [facility] 102 [address] [facility] 102 [place] [address] [place] [address] [facility] [place] [address] GI Problem Social History Tobacco [...] original note were not included. Nidhi Valentine, MANAGER INTERNET to Me (Selected Message) SH 05/03/25 12:00 [...] Description 05/28/2025 9:30 AM CDT Office Visit [facility] [address] [facility] 260 [place] [address] [place] [address] [facility] Prudenc[address] [place] [address] 07/09/2025 3:00 PM CDT Office Visit [facility] - [address] [facility] [address] [address] [facility] PRUDENCIO [address] [place] [address] Diamond Peterson FNP [address] [facility] [address] [place] [address] documented as of this encounter Visit Diagnoses Not on filedocumented in this encounter Care Teams Slurry Plant Operator Relationship Specialty Start Date End Date Isabela Augustine DO PCP - General Family Practice 12/22/19 documented as of this encounter
--- OUTSIDE RECORDS SUMMARY | 2025-05-03 16:55 | XMS_ITS | Continuity of Care Document ---
Author Organization [facility] Address [address] [place] [address] Phone Care Team Providers Care Passenger Tire Inspector Name Role Phone Leonardo Grimes MD Unavailable Unavailable Allergies, Adverse Reactions, Alerts Substance Reaction Status Criticality No Known Allergies Active No Inform ation Medications Medication Instructions Dosage Effective Dates (start - stop) Status Comments Garibaldi 5 mg-325 mg tablet take 1-2 tablets [...] OFFICE/OUTPAT IENT VISIT EST [facility], [address], [address], [place] tel:[phone] [facility] Adhesive capsulitis of left shoulder [address]. [address] [place], [place], [id number] . tel: [phone] [facility], [address] [facility] [address] [place] [address], [address], [place] tel:[phone] [facility] No Information [address]. [address] [place], [place], [id number] . tel: [phone] OFFICE/OUTPAT IENT VISIT EST [facility], [address], [address], [place] tel:[phone] [facility] Adhesive capsulitis of left shoulder 6 Dionisio Olivares. [address] [facility] [address], [id number] . tel:[phone] OFFICE CONSULTATION [facility], [address] [place] [address], [place], [address], [place] tel:[phone] [facility] Pain in left shoulderAdhesive capsulitis of left shoulder 6 Corn[address]. [address] [place], [place], [id number] . tel:[phone] Referring Provider: Yaneth Carey, [address] [place] [address], [address] . tel:[phone] Family History Family Member Type Diagnosis Age At Onset Mother Problem (finding) Cancer, unknown Payers Payer name Insurance type Covered libertarian ID Authorirvinga angelo(s) Blue Access PPO E2 OT [id number] Social History Type Description Quantity Date Captured [...]
--- OUTSIDE RECORDS SUMMARY | 2025-05-03 16:55 | XMS_ITS | Encounter Summary ---
Author Organization [facility] Health Address [address] [place] [address] Care Team Providers Care Executive Director Of Marketing Name Role Phone Unavailable Primary Care Provider Unavailabl e Prior Encounters Date Type Department Care Team Description 11/02/2019 Converted CPS Chart Documents [facility] [address] [place], [place] [address] <No scans attached> 11/02/2019 Converted 13x Documents [facility] [address] [place] [address] <No scans attached> Plan of Treatment Not on file Procedures Procedure Name Priority Date/Time Associated Diagnosis Comments CANCELLED APPOINTMENT Routine 03/16/2019 2:00 AM CDT ORAL HYGIENE INSTRUCTIONS Routine 2017 2:00 AM LABOR EXPEDITER PROPHYLAXIS - ADULT Routine 09/24/2018 2 :00 AM LABOR EXPEDITER PERIODIC ORAL EVALUATION - ESTABLISHED PATIENT Routine 09/09/2018 2:00 AM LABOR EXPEDITER BITEWINGS - FOUR RADIOGRAPHIC IMAGES Routine 09/09/2018 2:00 AM LABOR EXPEDITER PERIODIC ORAL EVALUATION - ESTABLISHED PATIENT Routine [...] COMPOSITE FILLING Routine 10/24/19 17 2:00 AM LABOR EXPEDITER 18 MO COMPOSITE FILLING Routine 10/24/19 17 2:00 AM LABOR EXPEDITER PERIODIC ORAL EVALUATION - ESTABLISHED PATIENT Routine 10/10/2016 2:00 AM LABOR EXPEDITER ORAL HYGIENE INSTRUCTIONS Routine 2015 2:00 AM LABOR EXPEDITER PROPHYLAXIS - ADULT Routine 10/10/2016 2 :00 AM LABOR EXPEDITER BITEWINGS - FOUR RADIOGRAPHIC IMAGES Routine 10/10/2016 2:00 AM LABOR EXPEDITER ADDITIONAL X-RAY Routine 10/10/2016 2:00 AM LABOR EXPEDITER ADDITIONAL X-RAY Routine 10/10/2016 2:00 AM LABOR EXPEDITER ADDITIONAL X-RAY Routine 10/10/2016 2:00 AM LABOR EXPEDITER ADDITIONAL X-RAY Routine 10/10/2016 2:00 AM LABOR EXPEDITER ADDITIONAL X-RAY Routine 10/10/2016 2:00 AM LABOR EXPEDITER SINGLE X-RAY Routine 10/10/2016 2:00 AM LABOR EXPEDITER PERIODIC ORAL EVALUATION - ESTABLISHED PATIENT Routine [...] ADDITION TO CROWN Routine 09/27/2015 2:00 AM LABOR EXPEDITER 29 PREFABRICATED POST AND CORE IN ADDITION TO CROWN Routine 09/27/2015 2:00 AM LABOR EXPEDITER 19 ENDODONTIC THERAPY, MOLAR TOOTH (EXCLUDING FINAL EPISCOPALIAN) Routine 09/27/2015 2:00 AM LABOR EXPEDITER 14 ENDODONTIC THERAPY, MOLAR TOOTH (EXCLUDING FINAL EPISCOPALIAN) Routine 09/27/2015 2:00 AM LABOR EXPEDITER 30 ENDODONTIC THERAPY, PREMOLAR TOOTH (EXCLUDING FINAL EPISCOPALIAN) Routine 09/27/2015 2:00 AM LABOR EXPEDITER 29 ENDODONTIC THERAPY, PREMOLAR TOOTH (EXCLUDING FINAL EPISCOPALIAN) Routine 09/27/2015 2:00 AM LABOR EXPEDITER 30 CROWN PFM POST Routine 09/27/2015 2:0 0 AM LABOR EXPEDITER 29 CROWN PFM POST Routine 09/27/2015 2:0 0 AM LABOR EXPEDITER 19 CROWN PFM POST Routine 09/27/2015 2:0 0 AM LABOR EXPEDITER 14 CROWN PFM POST Routine 09/27/2015 2:0 0 AM LABOR EXPEDITER COMPREHENSIVE ORAL EVALUATION - NEW OR ESTABLISHED PATIENT Routine 09/27/2015 2:00 AM LABOR EXPEDITER ORAL HYGIENE INSTRUCTIONS Routine 2014 2:00 AM LABOR EXPEDITER TOPICAL APPLICATION OF FLUORIDE VARNISH Routine 09/27/2015 2:00 AM LABOR EXPEDITER PROPHYLAXIS - ADULT Routine 09/27/2015 2 :00 AM LABOR EXPEDITER PANORAMIC RADIOGRAPHIC IMAGE Routine 09/27/2015 2:00 AM LABOR EXPEDITER INTRAORAL - COMPREHENSIVE SERIES OF RADIOGRAPHIC IMAGES Routine 09/27/2015 2:00 AM LABOR EXPEDITER INTRAORAL PHOTO Routine 09/27/2015 2:00 AM LABOR EXPEDITER INTRAORAL PHOTO Routine 09/27/2015 2:00 AM LABOR EXPEDITER INTRAORAL PHOTO Routine 09/27/2015 2:00 AM LABOR EXPEDITER INTRAORAL PHOTO Routine 09/27/2015 2:00 AM LABOR EXPEDITER 15 MOD COMPOSITE FILLING Routine 015 2:00 AM LABOR EXPEDITER 13 MOD COMPOSITE FILLING Routine 015 2:00 AM LABOR EXPEDITER 3 MOD COMPOSITE FILLING Routine 09/27/20 2:00 AM LABOR EXPEDITER 12 DO COMPOSITE FILLING Routine 09/27/20 2:00 AM LABOR EXPEDITER 4 DO COMPOSITE FILLING Routine 5 2:00 AM LABOR EXPEDITER 18 O COMPOSITE FILLING Routine 5 2:00 AM LABOR EXPEDITER 2 O COMPOSITE FILLING Routine 09/27/2015 2:00 AM LABOR EXPEDITER Visit Diagnoses Not on file
--- OUTSIDE RECORDS SUMMARY | 2025-05-03 16:55 | XMS_ITS | Encounter Summary ---
Author Organization [facility] Address [address] [place] [address] Phone Care Team Providers Care Cooling System Operator Name Role Phone Carlos Stephen MD Unavailable Barb Singh APRN, CNP Primary Care Provider + Encounter Details Date Type Department Care Team (Late st Contact Info) Description 04/06/2025 Telephone [facility] [address] [place] [address] Carlos Stephen MD [address] [address] Social History Tobacco Use Types [...] on filedocumented in this encounter Care Teams Cooling System Operator Relationship Specialty Start Date End Date Barb Singh APRN, LATISHA [address] [place] [address] PCP - General Primary Care 02/24/25 Carlos Stephen MD [address] [place] [address] Consulting Physician Urology 02/22/25 documented as of this encounter
--- OUTSIDE RECORDS SUMMARY | 2025-05-03 16:55 | XMS_ITS | Referral Summary ---
Author Organization [facility] Physician Office Building [address] [place] [address] Care Team Providers Care Book Coverer Name Role Phone Ben Aceves MD Unavailable [phone] Surendra Ramos MD Unavailable [phone] No, Physician Primary Care Provider [phone] Allergies Active Allergy Reactions Criticality Noted Date Comments Sulfa (Sulfonamide Antibiotics) Rash Medium 01/12 Medications dilTIAZem XR (dilTIAZem CD) 240 mg 24 hr capsule Take 1 capsule (240 mg total) by mouth daily 30 capsule Active clopidogreL (PLAVIX) 75 mg tabletIndications:Coron vicente artery disease of [place] artery of [place] heart with stable angina pectoris Take 1 [...] 2 diabetes mellitus (HCC),Coronary artery disease of [place] artery of [place] heart with stable angina pectoris Take 1 tablet (100 mg total) by mouth daily 90 tablet 3 020 Active rosuvastatin (CRESTOR) 40 mg tabletIndications:Dysli pidemia with low high density lipoprotein (HDL) cholesterol with hypertriglyceridemia due to type 2 diabetes mellitus (HCC),Type 2 diabetes mellitus without complication, without long-term current use of insulin (HCC),Coronary artery disease of [place] artery of [place] heart with stable angina pectoris Take 1 [...] Patient would like to switch to a clinical documentation specialist closer to home. Referral placed. Assessment & [...] with Crestor and Zetia. D/C Vytorin. Old [place] (myocardial infarction) 04/15/2019 Anxiety 02/12/2019 BPH (benign [...] artery disease of n ative artery of [place] heart with stable angina pectoris 05/20/2015 Assessment & Plan (06/06/2020 10:38 AM CDT): Asx. Cont current mgmt. Assessment & Plan (05/16/2020 7:18 PM CDT): S/p CABG 2014. Assessment & Plan (12/31/2019 4:35 PM CDT): Asx. Managed by cardiology. Patient mentioned towards the end of his visit that he may be interested in going to a clinical documentation specialist in town. Will think about it. Resolved Problems Problem Noted Date Diagnosed Date Resolved Date Pneumonia 05/16/2020 06/06/2020 Assessment & Plan (05/16/2020 7:13 PM CDT): RML per CT [facility] at [facility]. Initiated on IV azithromycin and continue on [...] Advance Directives For more information, please contact: [phone] * Full Code (Latest Code Status on File) Date Activated Date Inactivated Comments 05/16/2020 7:20 PM 05/17/2020 7:49 PM Care Teams Book Coverer Relationship Specialty Start Date End Date No, Physician PCP - General 09/21/20 [place] [address] [place] [address] Referring Physician Cardiovascular Disease 12/29/19 [place] [address] [address] [facility] [address] [place] [address] Consulting Physician Pulmonary Disease 05/17/20
--- OUTSIDE RECORDS SUMMARY | 2025-05-03 16:55 | XMS_ITS | Clinical Summary ---
Author Organization [facility] Address [address] [place] [address] Phone Care Team Providers Care Director Of Philanthropy Name Role Phone Carlos Stephen MD Unavailable [...] Office Visit [facility] [address] [place] [address] Carlos Stephen MD Elevated PSA (Primary Dx) Discharge Disposition: Discharged to home or Selfcare 04/21/2025 Travel 04/06/2025 Telephone [facility] [address] [place] [address] Carlos Stephen MD 03/24/2025 Results Follow-Up [facility] [address] [facility] [place] [address] Carlos Stephen MD PSA SCREEN 03/24/2025 Telephone [facility] [address] [place] [address] Carlos Stephen MD 03/23/2025 Travel 03/02/2025 Telephone [facility] [address] [place] [address] Carlos Stephen MD 02/24/2025 9:15 AM CDT Office Visit [facility] [address] [place] [address] Carlos Stephen MD Malignant neoplasm of prostate [...] 12.31(H) <4.00 ng/mL 03/23/2025 4:39 PM CDT [facility] Blood Venipuncture / Unknown 03/23/2025 2:52 PM CDT 03/23/2025 3:52 PM CDT Narrative [facility] - 03/23/2025 4:39 PM CDT The ALINITY Total PSA assay is a Chemiluminescent Microparticle Immunoassay (CMIA) for the quantitative determination of total PSA (both free PSA and PSA complexed to [id number]) in human serum. Total PSA values obtained with different assay methods, including Blackmon PSA assays, cannot be used interchangeably. Carlos Stephen MD CHEMISTRY ORDERABLES Final Resul t [facility] [address] [place] [address] * SANDRA,POST-VOID RES,US,NON-IMAGING (02/24/2025 9:15 AM CDT) Narrative Ria Conley 02/24/2025 9:15 AM CDT Ria Conley 02/24/2025 12:34 PM POCT Bladder Scan collected per standing order of Dr. Stephen on 02/24/2025 PVR= 137 ML Carlos Stephen MD [place] - SURGERY Final Result from Last 3 Months Insurance MEDICARE [employer] Care Teams Director Of Philanthropy Relationship Specialty Start Date End Date Barb Singh, DEMETRIUS, DIRECTOR PRODUCT MANAGEMENT [address] [place] [address] [address] [place] [address] PCP - General Primary Care 02/24/25 Carlos Stephen MD #2 [facility] [address] [place] [id number] Consulting Physician Urology 02/22/25
--- OUTSIDE RECORDS SUMMARY | 2025-05-03 16:55 | XMS_ITS | Clinical Summary ---
Author Organization [facility] Physician Office Building [address] [place] [address] Care Team Providers Care Ob/Gyn Nurse Name Role Phone Ben Aceves MD Unavailable [phone] Surendra Ramos MD Unavailable [phone] No, Physician Primary Care Provider [phone] Allergies Active Allergy Reactions Criticality Noted Date Comments Sulfa (Sulfonamide Antibiotics) Rash Medium 01/12 Medications dilTIAZem XR (dilTIAZem CD) 240 mg 24 hr capsule Take 1 capsule (240 mg total) by mouth daily 30 capsule Active clopidogreL (PLAVIX) 75 mg tabletIndications:Coron vicente artery disease of [place] artery of [place] heart with stable angina pectoris Take 1 [...] 2 diabetes mellitus (HCC),Coronary artery disease of [place] artery of [place] heart with stable angina pectoris Take 1 tablet (100 mg total) by mouth daily 90 tablet 3 020 Active rosuvastatin (CRESTOR) 40 mg tabletIndications:Dysli pidemia with low high density lipoprotein (HDL) cholesterol with hypertriglyceridemia due to type 2 diabetes mellitus (HCC),Type 2 diabetes mellitus without complication, without long-term current use of insulin (HCC),Coronary artery disease of [place] artery of [place] heart with stable angina pectoris Take 1 [...] Patient would like to switch to a supervisor closer to home. Referral placed. Assessment & [...] with Crestor and Zetia. D/C Vytorin. Old [place] (myocardial infarction) 04/15/2019 Anxiety 02/12/2019 BPH (benign [...] artery disease of n ative artery of [place] heart with stable angina pectoris 05/20/2015 Assessment & Plan (06/06/2020 10:38 AM CDT): Asx. Cont current mgmt. Assessment & Plan (05/16/2020 7:18 PM CDT): S/p CABG 2014. Assessment & Plan (12/31/2019 4:35 PM CDT): Asx. Managed by cardiology. Patient mentioned towards the end of his visit that he may be interested in going to a supervisor in town. Will think about it. Resolved Problems Problem Noted Date Diagnosed Date Resolved Date Pneumonia 05/16/2020 06/06/2020 Assessment & Plan (05/16/2020 7:13 PM CDT): RML per CT performed at [facility]. Initiated on IV azithromycin and continue [...] Plan of Treatment Not on file Insurance [facility] Advance Directives For more information, please contact: [phone] * Full Code (Latest Code Status on File) Date Activated Date Inactivated Comments 05/16/2020 7:20 PM 05/17/2020 7:49 PM Care Teams Ob/Gyn Nurse Relationship Specialty Start Date End Date No, Physician PCP - General 09/21/20 [place] [address] [place] [address] Referring Physician Cardiovascular Disease 12/29/19 [place] [address] [address] [facility] [address] [place] [address] Consulting Physician Pulmonary Disease 05/17/20
--- OUTSIDE RECORDS SUMMARY | 2025-05-03 16:55 | XMS_ITS | Continuity of Care Document ---
Author Organization [facility] Address [address] [facility] utijustine Flannery [address] [place] [address] Phone Care Team Providers Care Camouflage Assembler Name Role Phone Gordo Ragland MD Unavailable Unavailable Allergies, Adverse Reactions, Alerts Substance Reaction Status Criticality Sulfa (Sulfonamide Antibiotics) Active No Information Medications Medication Instructions Dosage Effective Dates (start - stop) Status Comments Marsha 128 5 % eye drops instill 1 drop by ophthalmic route two times per day in each eye - Active Eliquis 5 mg tablet take 1 tablet by oral route 2 times every day 5 MG - Active diltiazem ER 240 mg capsule,24 hr,extended release take 1 capsule by oral route every day 240 MG - Active amlodipine 5 mg tablet take 1 tablet by oral route every day 5 MG - Active clopidogrel 75 mg tablet take 1 tablet by oral route every day 75 MG - Active lisinopril 5 mg tablet take 1 tablet by oral route every day 5 MG - Active metoprolol succinate ER 100 mg tablet,extended release 24 hr take 1 tablet by oral route every day 100 MG - Active rosuvastatin 40 mg tablet take 1 tablet by oral route every day 40 MG - Active terazosin 2 mg capsule take 1 capsule by oral route every day at bedtime 2 MG - Active ezetimibe 10 mg tablet take 1 tablet by oral route every day 10 MG - Active Vigamox 0.5 % eye drops instill 1 drop by ophthalmic route 4 times every day into operative eye for 2 weeks, then stop - No Longer Active ok to substitute Polytrim 5ml with same directions prednisolone acetate 1 % eye drops,suspension instill 1 drop by ophthalmic route 4 times every day into operative eye for 2 weeks, then 2 times per day for 2 weeks, then stop - No Longer Active ketorolac 0.5 % eye drops instill [...] to substitute Polytrim 5ml with same directions prednisolone acetate 1 % eye drops,suspension instill 1 drop by ophthalmic route 4 times every day into operative eye for 2 weeks, then 2 times per day for 2 weeks, then stop - No Longer Active ketorolac 0.5 % eye drops instill 1 drop in operative eye 4 times every day for 2 weeks, then 2 times per day for 2 weeks, then stop - No Longer Active Procedures Procedure Date Refraction Post-op Follow-up Visit [...] Provider Providers Copied on Encounter [facility], [address], [place], [place], [id number], [place] [phone] [place] Professional 1 mo CE PO (04/20/20) (chief complaint) Post op visit 0 Obie Caro. [address] [facility], [address] [place], [place], [id number], [place]. tel:[phone] Referring Provider: Reji Slade, [address] [place] [address], [place], [address] . tel:[phone] [facility], [address] [place] [address] [address], [place], [place], [id number], [place] [phone] SEC [place] Professional 1 wk po PCIOL OD (04/20/20) (chief complaint) Post op visit 0 Charley Gonzalez. [address] [place] [address], [address] [place] [address], [place], [address], [place]. tel:[phone] Referring Provider: Carlos Whitehead OD R, [address] [place] [address], [place], [address]. tel:[phone] [facility], [address], [place], [place], [id number], [place] tel:[phone] SEC [place] Professional 1 day s/p PCIOL (chief complaint) Post op visit 0 Charley MORA Carlos. [address] [place] [address], [address] [place] [address], [place], [address], [place]. tel:[phone] Referring Provider: Carlos Whitehead OD R, [address] [place] [address], [place], [address]. tel:[phone] [facility], [address], [place], [place], [id number], [place] tel:[phone] [facility] No Information 0 Obie Caro. [address] [facility], [address] [place], [place], [id number], . tel:[phone] Referring Provider: Carlos Mc, [address] [place] [address], [place], [address]. tel:[phone] [facility], [address] [place] [address] [address], [place], [place], [id number], tel:[phone] SEC Helene Edmond [facility] No Information 0 Obie Caro. [address] [facility], [facility] [place], [place], [id number], [place]. tel:[phone] [facility], [address] [place] [address] [address], [place], [place], [address], [place] tel:[phone] [place] Professional Post-Op (chief complaint) Post op visit 0 Charley Gonzalez. [address] [place] [address], [address], [place]. tel:[phone] Referring Provider: Carlos Mc, [address] [place] [address], [place], [address]. tel:[phone] [facility], [address] [place] [address] [address], [place], [place], [address], [place] tel:[phone] SEC [place] Professional Post-Op (chief complaint) Post op visit 0 Charley Gonzalez. [address] [place] [address], [address] [place] [address], [place], [address], [place]. tel:[phone] Referring Provider: Carlos Mc, [address] [place] [address], [address]. tel:[phone] [facility], [address] [place] [address] [address], [place], [place], [id number], [place] tel:[phone] [facility] No Information 0 Obie Caro. [address] [facility], [address], [place], [place], [address], [place]. tel:[phone] Referring Provider: Carlos Whitehead OD R, [address] [place] [address], [place], [address]. tel:[phone] Office/outpa tient Visit, [facility], [address] [place] [address] [address], [place], [place], [address], [place] tel:[phone] SEC [place] Professional 90 day cataract eval (chief complaint) Combined forms of age-related cataract, bilateralEpir etinal membrane (ERM) of left eyeFuchs' corneal dystrophyType 2 diabetes mellitus without complications Optic cupping of left eye 0 Obie Caro. [address] [facility] [place] [place]ew [place], [id number], [place]. tel:[phone] Referring Provider: Carlos Whitehead OD R, [address] [place] [address], [place], [address]. tel:[phone] [facility], [address] [place] [address] [address], [place], [place], [id number], [place] tel:[phone] SEC [place] Professional No Information 0 Obie Caro. [address] [facility] [address], [place], [place], [address], [place]. tel:[phone] Office/outpa tient Visit, [facility], [address] [place] [address] [address], [place], [place], [id number], [place] tel:[phone] SEC [place] Professional Cataract evaluation (chief complaint) Combined forms of age-related cataract, bilateralEpir etinal membrane (ERM) of left eyeType 2 diabetes mellitus without complications Fuchs' corneal dystrophy 0 Obie Caro. [address] [facility], [facility] [place], [place], [id number], [place]. tel:[phone] Referring Provider: Carlos Whitehead OD R, [address] [place] [address], [place], [address]. tel:[phone] [facility], [address], [place], [place], [address], tel:[phone] SEC [place] Professional Complete Exam (chief complaint) Type 2 diabetes mellitus without complications Fuchs' corneal dystrophyComb ined forms of age-related cataract, bilateralEpir etinal membrane (ERM) of left eyeDry eye syndrome of bilateral lacrimal glands 0 Charley OD Carlos. [address] [place] [address], [address] [place] [address], [place], [address], [place]. tel:[phone] [facility], [address], [place], [place], [address], [place] tel:[phone] SEC [place] Professional No Information 0 Charley OD Carlos. [address] [place] [address], [address] [facility], [place], [address], [place]. tel:[phone] Family History Family Member Type Diagnosis Age [...]
--- OUTSIDE RECORDS SUMMARY | 2025-05-03 16:55 | XMS_ITS | Clinical Summary ---
Author Organization [facility] Address [address] [facility] [place] [address] Care Team Providers Care Commercial Credit Analyst Name Role Phone Unavailable Primary Care Provider [...]
--- NOTE | 2025-05-03 16:58 | ED_ITS ---
HPI - General Adult General Chief complaint: Nausea/Vomiting/Diarrhea Stated complaint: n/v/d Time Seen by Provider: 05/03/25 16:41 History of Present Illness HPI narrative: 70-year-old male presenting to the emergency department for evaluation for intermittent nausea vomiting and esophagitis/gastritis. Patient did have an EGD on 04/29 and has had the symptoms since then. Patient reports today was the 1st day he was actually able to keep his breakfast down. Patient was having some intermittent abdominal pain on Saturday but denies any current abdominal pain. Patient denies any current nausea. Patient denies any feeling of esophageal burning at this time. At time of evaluation patient is in no distress. Patient is currently being worked up for some perihilar lymphadenopathy Related Data Home Medications ?Medication ?Instructions ?Recorded ?Confirmed ?Last Taken ?Type atorvastatin 80 mg tablet (Lipitor) 80 mg PO DAILY 01/11/25 03/30/25 Unknown History diltiazem HCl 360 mg capsule,24 360 mg PO DAILY 01/11/25 03/30/25 Unknown History hr,extended release (Tiadylt ER) ezetimibe 10 mg tablet 10 mg PO DAILY 01/11/25 03/30/25 Unknown History losartan 100 mg tablet 100 mg PO DAILY 01/11/25 03/30/25 Unknown History metformin 500 mg tablet,extended 500 mg PO DAILY 01/11/25 03/30/25 Unknown History release 24 hr (Glucophage XR) metoprolol succinate 100 mg 100 mg PO DAILY 01/11/25 03/30/25 Unknown History tablet,extended release 24 hr pantoprazole 40 mg tablet,delayed 40 mg PO QA 01/11/25 03/30/25 Unknown History release warfarin 2 mg tablet 2 mg PO DAILY 01/11/25 03/30/25 Unknown History amlodipine 2.5 mg tablet 2.5 mg PO DAILY 03/30/25 03/30/25 Unknown History dapagliflozin propanediol 10 mg 10 mg PO DAILY 03/30/25 03/30/25 Unknown History tablet (Farxiga) magnesium citrate 100 mg capsule 100 mg PO DAILY 03/30/25 03/30/25 Unknown History oxybutynin chloride 10 mg 10 mg PO DAILY 03/30/25 03/30/25 Unknown History tablet,extended release 24 hr tamsulosin 0.4 mg capsule 0.4 mg PO DAILY 03/30/25 03/30/25 Unknown History zinc acetate 50 mg (zinc) capsule 50 mg PO DAILY 03/30/25 03/30/25 Unknown History (Galzin) Allergies Allergy/AdvReac Type Severity Reaction Status Date / Time Sulfa (Sulfonamide Allergy Mild Rash Verified 05/03/25 16:05 Antibiotics) Review of Systems 2 Review of Systems: All systems reviewed & are unremarkable except as noted in HPI and below PMFSH Past Medical History Medical History (Updated 05/03/25 @ 21:07 by Siva José MD) Mass in the abdomen Witnessed episode of apnea Hypersomnia Snoring Prediabetes Tinnitus Aortic aneurysm Afib Hyperlipidemia Prostate cancer Heart disease HTN (hypertension) Hx of myocardial infarction Gallbladder disorder CAD (coronary artery disease) Surgical History Surgical History Hx of cholecystectomy Hx of hernia repair 2018 & 2023 History of heart bypass surgery 2014 Family History Family History Mother Hypertension Breast cancer Grandparent Stomach cancer Grandparent Heart disease Social History Social History Smoking status: Never smoker Alcohol intake: current Alcohol use details: 1-4 drinks per week Substance use: never Exam 2 Narrative: APPEARANCE: Well appearing, no pain, no distress, well-nourished. HEAD: normocephalic, atraumatic. EYES: PERRLA/EOMI, conjunctivae clear. NOSE: Normal no drainage EARS:TMS clear with good light reflex. THROAT: Pharynx clear, no exudate. NECK: Supple. No adenopathy, no masses. RESPIRATORY: Airway patent, respirations nonlabored. Clear to auscultation bilaterally, no rales, rhonchi, wheezing. CARDIOVASCULAR: Regular rate and rhythm without murmurs rubs or gallops. ABDOMINAL: Mild abdominal tenderness to palpation MUSCULOSKELETAL: Moves all extremities. Strength/ROM intact, No edema, No calf tenderness. NEURO: Alert. Cranial nerves II through XII intact. Good gait. Good coordination SKIN: Warm, dry. Normal Color Course Vital Signs Vital signs: Vital Signs Temperature 98.2 F 05/03/25 16:02 Pulse Rate 74 05/03/25 16:02 Respiratory Rate 16 05/03/25 16:02 Blood Pressure 104/68 05/03/25 16:02 Pulse Oximetry 98 05/03/25 16:02 Temperature 98.0 F 05/03/25 21:14 Pulse Rate 77 05/03/25 21:14 Respiratory Rate 12 05/03/25 21:14 Blood Pressure 124/84 05/03/25 21:14 Pulse Oximetry 97 05/03/25 21:14 Medical Decision Making MDM Narrative Medical decision making narrative: 70-year-old male presents emergency department for evaluation for nausea vomiting after recent EGD. Patient did feel improved with rehydration. Patient's potassium was replaced 20 mEq and 80 mEq p.o.. Patient had mild MARIELENA but he was treated with 2 L of lactated Ringer's. Patient did have an elevated leukocytosis but patient is currently being worked up for lymphadenopathy. Patient reports he has known leukocytosis. Hemoglobin was 9.4. CT scan was initially ordered but patient declined. On re-evaluation patient was willing to have a chest x-ray and that showed no acute abnormalities. On re-evaluation patient states he does feel improved. Patient is tolerating p.o.. Advised to follow a clear liquid diet for the next 1-3 days patient will be provided Zofran for nausea control along with omeprazole. Patient was encouraged to continue have close follow-up with his physicians regarding his lymphadenopathy and biopsy results. Critical Care Procedure Note Authorized and Performed by: Siva José Total critical care time: Approximately 36 minutes Due to a high probability of clinically significant, life threatening deterioration, the patient required my highest level of preparedness to intervene emergently and I personally spent this critical care time directly and personally managing the patient. This critical care time included obtaining a history; examining the patient; pulse oximetry; ordering and review of studies; arranging urgent treatment with development of a management plan; evaluation of patient's response to treatment; frequent reassessment; and, discussions with other providers. This critical care time was performed to assess and manage the high probability of imminent, life-threatening deterioration that could result in multi-organ failure. It was exclusive of separately billable procedures and treating other patients and teaching time. Please see MDM section and the rest of the note for further information on patient assessment and treatment. Differential Diagnosis Differential Diagnosis: Appendicitis, colitis, diverticulitis, esophageal rupture, acute kidney injury Vital Signs Vital Signs: Vital Signs Temperature 98.2 F 05/03/25 16:02 Pulse Rate 74 05/03/25 16:02 Respiratory Rate 16 05/03/25 16:02 Blood Pressure 104/68 05/03/25 16:02 Pulse Oximetry 98 05/03/25 16:02 Temperature 98.0 F 05/03/25 21:14 Pulse Rate 77 05/03/25 21:14 Respiratory Rate 12 05/03/25 21:14 Blood Pressure 124/84 05/03/25 21:14 Pulse Oximetry 97 05/03/25 21:14 Lab Data Lab results reviewed: Yes I reviewed the patient's lab results. 05/03/25 16:27 05/03/25 16:27 Labs: Lab Results 05/03/25 05/03/25 Range/Units 16:27 19:46 WBC 19.0 H (4.5-10.0) K/mm3 RBC 3.29 L (4.6-6.20) M/mm3 Hgb 9.4 L (14.0-18.0) g/dL Hct 28.2 L (42.0-52.0) % MCV 85.7 (80-100) fl MCH 28.6 (26-34) pg MCHC 33.3 (32-36) g/dl RDW 14.1 (11.5-14.5) % Plt Count 130 L (150-375) k/mm3 MPV 12.2 H (7.4-10.4) fl Immature Gran % (Auto) 0.8 H (0-0.5) % Neut % (Auto) 86.2 H (45.5-73.1) % Lymph % (Auto) 4.5 L (18.3-44.2) % Ingham % (Auto) 7.7 (2.6-8.5) % Eos % (Auto) 0.6 (0-4.4) % Baso % (Auto) 0.2 (0.2-1.2) % Lymph # (Auto) 0.85 L (0.9-3.2) K/mm3 Ingham # (Auto) 1.5 H (0.1-0.6) K/mm3 Eos # (Auto) 0.1 (0-0.3) K/mm3 Baso # (Auto) 0.0 (0.0-0.1) K/mm3 Abs Immat Gran (auto) 0.15 H (0.00-0.031) K/mm3 Absolute Neuts (auto) 16.4 H (1.3-6.7) K/mm3 Absolute Nucleated RBC 0.000 (0.0-0.012) K/mm3 Nucleated RBC % 0.0 (0.0-0.2) % % Immature Plt Fraction 8.8 (0.9-11.2) % Sodium 138 (137-145) mmol/L Potassium 2.7 L* (3.4-5.0) mmol/L Chloride 93 L (98-107) mmol/L Carbon Dioxide 35 H (22-30) mmol/L Anion Gap 10 (4-12) mmol/L BUN 37 H (9-20) mg/dL Creatinine 1.96 H (0.7-1.3) mg/dL Estim Creat Clear Calc 37 ml/min Estimated GFR 34 L (59 - ) Glucose 154 H (65-110) mg/dL Calcium 9.8 (8.4-10.2) mg/dL Total Bilirubin 1.9 H (0.2-1.3) mg/dL AST 35 (17-59) U/L ALT 29 (6-50) U/L Alkaline Phosphatase 54 (38-126) U/L Total Protein 7.4 (6.3-8.2) g/dL Albumin 4.5 (3.5-5.1) g/dL Lipase 119 (23-300) U/L Urine Color Yellow (Yellow) Urine Appearance Clear (Clear) Urine pH 6.0 (5.0-9.0) Ur Specific Patton 1.021 (1.001-1.035) Urine Protein 2+ H (Negative) mg/dL Urine Glucose (UA) 3+ H (Negative) mg/dL Urine Ketones Trace H (Negative) mg/dL Ur Blood (Man) 2+ H (Negative) Urine Nitrate Negative (Negative) Urine Bilirubin Negative (Negative) Urine Urobilinogen 0.2 (<2.0) mg/dL Add Ur Microanalysis Reviewed Leukocyte Esterase Rfl Negative (Negative) PANCHITO/UL Urine RBC 0-2 (0-2) /hpf Urine WBC 0-5 (0-3) /hpf Ur Squamous Epith Cells Occasional (Few) /hpf Urine Bacteria None seen /hpf Urine Casts - Imaging Data Radiologist's impression: Impressions Chest X-Ray 05/03/25 21:06 IMPRESSION: No acute cardiopulmonary process. Cardiomegaly. Critical Care Time Critical Care Time Critical Care Time: Yes Total Critical Care Time: 36 Discharge Plan Discharge Clinical Impression: Nausea & vomiting, Acute hypokalemia, Leukocytosis, Acute kidney injury Patient Disposition: Home Condition: Stable Instructions: Antibiotic Form, Dehydration (ED), Clear Liquid Diet (ED) Additional Instructions: Clear liquid diet for the next 1-3 days. Zofran as needed for nausea control. Advance to a bland diet as tolerated. Omeprazole as directed for the next 14 days. Continue to have close follow-up with her physicians. If you have any worsening symptoms then please call or return to the emergency department. Patient Language: Portuguese Prescriptions: New omeprazole 20 mg capsule,delayed release(DR/EC) 20 mg PO DAILY 14 Days Qty: 14 0RF ondansetron 4 mg tablet,disintegrating 4 mg PO Q8H PRN (Reason: nausea and vomiting) Qty: 14 0RF No Action diltiazem HCl [Tiadylt ER] 360 mg capsule,extended release 24hr 360 mg PO DAILY metformin [Glucophage XR] 500 mg tablet extended release 24 hr 500 mg PO DAILY losartan 100 mg tablet 100 mg PO DAILY metoprolol succinate 100 mg tablet extended release 24 hr 100 mg PO DAILY pantoprazole 40 mg tablet,delayed release (DR/EC) 40 mg PO QAM ezetimibe 10 mg tablet 10 mg PO DAILY atorvastatin [Lipitor] 80 mg tablet 80 mg PO DAILY warfarin 2 mg tablet 2 mg PO DAILY dapagliflozin propanediol [Farxiga] 10 mg tablet 10 mg PO DAILY tamsulosin 0.4 mg capsule 0.4 mg PO DAILY oxybutynin chloride 10 mg tablet extended release 24hr 10 mg PO DAILY amlodipine 2.5 mg tablet 2.5 mg PO DAILY Galzin 50 mg (zinc) capsule 50 mg PO DAILY magnesium citrate 100 mg capsule 100 mg PO DAILY lorazepam 1 mg tablet 1 mg PO DIRECTED Qty: 2 0RF Rx Instructions: take 1 tab 1-2 hours prior to MRI. Bring 2nd tab with you to MRI appt. May take 2nd tablet if needed prior to MRI alprazolam [Xanax] 0.25 mg tablet 0.25 mg PO QHS PRN (Reason: sleep) Qty: 30 5RF Follow-up/Referrals: Barb Singh NP [Primary Care Provider] -
[2025-05-03 17:04] LABS: Alanine Aminotransferase 29 U/L (6-50); Albumin Level 4.5 g/dL (3.5-5.1); Alkaline Phosphatase 54 U/L (38-126); Anion Gap 10 mmol/L (4-12); Aspartate Amino Transferase 35 U/L (17-59); Bilirubin,Total 1.9 mg/dL (0.2-1.3); Blood Urea Nitrogen 37 mg/dL (9-20); Calcium 9.8 mg/dL (8.4-10.2); Carbon Dioxide 35 mmol/L (22-30); Chloride 93 mmol/L (98-107); Estimated CRCL calculation 37 ml/min; Estimated Glomerular Filt Rate 34; Glucose 154 mg/dL (65-110); Lipase 119 U/L (23-300); Sodium 138 mmol/L (137-145); Total Protein 7.4 g/dL (6.3-8.2)
[2025-05-03 17:05] LABS: Potassium 2.7 mmol/L (3.4-5.0)
[2025-05-03] MEDS: ONDANSETRON INJ 4 MG/2 ML VIAL IV PUSH (17:19)
[2025-05-03] MEDS: PANTOPRAZOLE SODIUM IV 40 MG VIAL IV PUSH (17:20)
[2025-05-03] MEDS: POTASSIUM CHLORIDE 20 MEQ PACKET (FOR LIQUID) 40 MEQ PO ×2 (17:21→20:10)
[2025-05-03] MEDS: LACTATED RINGERS 1,000 ML 999 ML IV CONT ×2 (17:24→19:20)
[2025-05-03] MEDS: KCL 20 MEQ/SW 100 ML 100 ML 50 MEQ IVPB (17:30)
[2025-05-03 21:04] LABS: Add Urine Microscopic? YES; Appearance Urine Clear (Clear); Glucose Urine UA 3+ mg/dL (Negative); Leukocyte Esterase Ur Negative LEU/UL (Negative); Need Manual Microscopic Reviewed; Nitrate Urine Negative (Negative); Specific Grav Ur 1.021 (1.001-1.035)
== END 2025-05-03 21:23 | disposition home or self-care (01) ==
PROVIDERS: Emergency Provider Emergency Medicine; PCP Nurse Practitioner Family
DX: R11.2 Nausea with vomiting, unspecified (principal); E87.6 Hypokalemia; D72.829 Elevated white blood cell count, unspecified; N17.9 Acute kidney failure, unspecified; I10 Essential (primary) hypertension; I25.10 Atherosclerotic heart disease of native coronary artery without angina pectoris; E78.5 Hyperlipidemia, unspecified; I25.2 Old myocardial infarction
CPT/HCPCS: 36415; 71045; 80053; 81001; 83690; 85025; 85055; 96361; 96365; 96366; 96375; 99284; A9270; J2405; J2470; J3480; J7120

== ENCOUNTER 2025-07-06 09:52 | Outpatient (CLI) | payer MEDICARE, SELFPAY ==
--- OUTSIDE RECORDS SUMMARY | 2025-07-05 10:15 | XMS_ITS | Encounter Summary ---
Author Organization [facility] Address [address] [place] [address] Care Team Providers Care Manager Adobe Name Role Phone Isabela Augustine Primary Care Provider [phone] Reason for Visit * Reason Comments Prostate Cancer Encounter Details Date Type Department Care Team (Late st Contact Info) Description 07/05/2025 10:15 AM CDT Office Visit [facility] Urology [facility] [address] [facility] [address] [place] [address] [place] [id number] [facility] [address] [place] [address] Prostate cancer (CMS/HCC) (Primary Dx) Social History Tobacco Use Types Packs/Day Years Used Date Smoking Tobacco: Never Smokeless Tobacco: Never Alcohol Use Standard Drinks/Week Comments Yes 4 (1 standard drink = 0.6 oz pur e alcohol) Feeling Safe Answer Date Recorded Are you in a relationship wi th someone who hurts you emotionally and/or physically? No 04/29/2025 Sex and Gender Information Value Date Recorded Sex Assigned at Not on file Legal Sex Male 12:24 PM CDT Gender Identity Not on file Sexual Orientation Not on file documented as of this encounter Last Filed Vital Signs Vital Sign Reading Time Taken Comments Blood Pressure 159/91 07/05/2025 10:54 AM CDT Pulse 79 07/05/2025 10:54 AM CDT Temperature - - Respiratory Rate - - Oxygen Saturation - - Inhaled Oxygen Concentration - - Weight - - Height - - Body Mass Index - - documented in this encounter Progress Notes * Arnulfo Son MD - 07/05/2025 11:34 AM CDT Chief Complaint Patient presents with Prostate Cancer HPI: 70 y.o. year old male with a lateral lobe obstructing prostate and low risk prostate cancer diagnosed in 2019 with a rising PSA. MRI of the prostate demonstrated a PI-RADS 5 lesion possible syringocele still. Cystoscopy demonstrated no syringocele He is being evaluated for lymphoma as well and is getting chemotherapy. 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 30 Tablet 3 lidocaine-prilocaine (EMLA) 2.5-2.5 % Cream Apply to affected area see administration instructions.30 Gram 3 oxyCODONE-acetaminophen (PERCOCET) 5-325 mg tablet Take 1 Tablet by mouth every 4 hours as needed for Pain, Moderate. Max Daily Amount: 30 Tablets 15 Tablet 0 dapagliflozin propanediol (Farxiga) 10 mg Tablet Take 1 Tablet (10 mg) by mouth daily. 90 Tablet 1 metFORMIN (GLUCOPHAGE) 500 mg tablet Take 500 mg by mouth 2 times daily with meals. ALPRAZolam (XANAX) 0.5 mg tablet Take 0.5 mg by mouth nightly as needed. oxyBUTYnin (DITROPAN XL) 10 mg Extended Release 24 hour tablet Take 10 mg by mouth daily. pantoprazole (PROTONIX) 40 mg Tablet, Delayed Release (E.C.) Take 40 mg by mouth daily. tamsulosin (FLOMAX) 0.4 mg capsule Take 0.4 mg by mouth daily. amLODIPine (NORVASC) 2.5 mg tablet Take 1 Tablet (2.5 mg) by mouth daily. 100 Tablet 3 atorvastatin (LIPITOR) 80 mg tablet Take 1 Tablet (80 mg) by mouth daily at bedtime. 100 Tablet 3 ezetimibe (ZETIA) 10 mg tablet Take 1 Tablet (10 mg) by mouth daily. 90 Tablet 1 losartan (COZAAR) 100 mg tablet Take 1 Tablet (100 mg) by mouth daily. 100 Tablet 3 metoprolol succinate (TOPROL XL) 100 mg Extended Release 24 hour tablet TAKE 1 TABLET BY MOUTH EVERY DAY 90 Tablet 3 warfarin (Jantoven) 2 mg tablet Take 1.5 Tablets (3 mg) by mouth daily. 135 Tablet 2 zinc 50 mg Tablet Take 50 mg by mouth daily. No current facility-administered medications for this visit. Allergies Allergen Reactions Sulfa (Sulfonamide Antibiotics) Rash Current Outpatient Medications Medication Instructions ALPRAZolam (XANAX) 0.5 mg, NIGHTLY PRN amLODIPine (NORVASC) 2.5 mg, Oral, DAILY atorvastatin (LIPITOR) 80 mg, Oral, DAILY AT BEDTIME dapagliflozin propanediol (FARXIGA) 10 mg, Oral, DAILY ezetimibe (ZETIA) 10 mg, Oral, DAILY lidocaine-prilocaine (EMLA) 2.5-2.5 % Cream Topical, SEE ADMIN INSTRUCTIONS losartan (COZAAR) 100 mg, Oral, DAILY metFORMIN (GLUCOPHAGE) 500 mg, TWO TIMES DAILY WITH MEALS metoprolol succinate (TOPROL XL) 100 mg Extended Release 24 hour tablet TAKE 1 TABLET BY MOUTH EVERY DAY oxyBUTYnin (DITROPAN XL) 10 mg, DAILY oxyCODONE-acetaminophen (PERCOCET) 5-325 mg tablet 1 Tablet, Oral, EVERY 4 HOURS PRN pantoprazole (PROTONIX) 40 mg, DAILY prochlorperazine maleate (COMPAZINE) 10 mg, Oral, EVERY 6 HOURS PRN tamsulosin (FLOMAX) 0.4 mg, DAILY warfarin (JANTOVEN) 3 mg, Oral, DAILY zinc 50 mg, DAILY Past Surgical History: Procedure Laterality Date HX COLONOSCOPY 03/31/2018 HX CORONARY ARTERY BYPASS GRAFT 2014 3 vessel HX GALLBLADDER SURGERY HX HEART SURGERY NE EDG US EXAM SURGICAL ALTER STOM DUODENUM/JEJUNUM N/A 04/29/2025 ULTRASOUND ENDOSCOPIC performed by Bhumi Jaeger MD at [facility] ENDOSCOPY NE LAPAROSCOPY SURG RPR INITIAL INGUINAL HERNIA Right 04/24/2019 DAVINCI XI ROBOTIC RIGHT INGUINAL HERNIA REPAIR performed by Erik Garvin DO at [facility] OR I have reviewed the patient's medical history in detail and updated the computerized patient record. Physical Exam: Vitals: 07/05/25 1054 BP: (!) 159/91 Pulse: 79 Constitutional: There is no height or weight on file to calculate BMI. Appearance -- normal for stated age. No acute distress. Gastrointestinal: Abdomen -- Soft, non-tender. No masses, No organomegaly. Back: No spinal or flank tenderness. Musculoskeletal: Gait/station -- normal Mobility -- normal Results for orders placed or performed in visit on 07/05/25 POC URINALYSIS DIPSTICK AUTOMATED Result Value Ref Range COLOR UA POC Yellow Pale to Dark Yellow CLARITY UA POC Clear Clear, Other GLUCOSE UA POC 3+ (A) Negative, Normal BILIRUBIN UA POC Negative Negative KETONES UA POC Negative Negative SPECIFIC GRAVITY UA POC 1.015 1.000 - 1.030 BLOOD UA POC Trace (A) Negative PH UA POC 7.0 5.0 - 8.0 PROTEIN UA POC 1+ (A) Negative UROBILINOGEN UA POC 0.2 <2.0 mg/dL NITRITE UA POC Negative Negative LEUKOCYTE ESTERASE UA POC Negative Negative KIT LOT NUMBER POC [id number] KIT EXP DATE POC 06/13/2026 MRI report from 04/02/2025 demonstrates a 1.9 cm lesion at the right anterior transition zone extending from the gland base to the apex. PI-RADS 5 Prostate volume 37 mL TOBACCO COUNSELING He is not a tobacco/nicotine user. Assessment: ICD-10-CM ICD-9-CM 1. Prostate cancer (CMS/HCC) C61 185 POC URINALYSIS DIPSTICK AUTOMATED With rising psa, and a suspicious lesion on mri by report Plan: Uronav fusion transperineal prostate biopsy transrectal us prostate needle biopsy. The procedures and its risks were discussed including bleeding, infection, rectal injury, and the need for further procedures. Instructions and antibiotics wereprovided. Arnulfo Son MD Some of this encounter was transcribed using Plisten Naturally Speaking computerized voice recognition without a human christian science reader. This report may or may not have been adjusted for typographicalor medical and syntax errors. documented in this encounter Plan of Treatment Upcoming Encounters Date Type Department Care Team (Late st Contact Info) Description 07/09/2025 10:30 AM CDT Appointment [facility] Infusion Services [facility] [address] [place] [phone] [place] [address] [facility] [address] [place] [address] [facility] 07/09/2025 11:00 AM CDT Office Visit [facility] Oncology and Hematology [facility] [address] [facility] [address] [place] [address] Candy Arteaga, [facility] [address] [place] [address] 07/12/2025 2:45 PM CDT Office Visit [facility] Heart and Vascular - [address] [facility] [address] [address] [facility] [address] [place] [address] [place] [address] [facility] [address] [place], [place] [id number] 07/29/2025 8:45 AM CDT Office Visit [facility] Oncology and Hematology [facility] [address] [facility] [address] [place] [address] [place] [address] [address] [facility] [address] [place] [address] 07/29/2025 9:00 AM CDT Appointment [facility] Infusion Services [facility] [address] [place] [address] [place] [address] [address] [facility] [address] [place] [address] [facility] [phone] Infusion [facility] documented as of this encounter Procedures Procedure Name Priority Date/Time Associated Diagnosis Comments POC URINALYSIS DIPSTICK AUTOMATED Routine 07/05/2025 11:10 AM CDT Prostate cancer (CMS/HCC) documented in this encounter Results * (ABNORMAL) POC URINALYSIS DIPSTICK AUTOMATED (07/05/2025 11:10 AM CDT) COLOR UA POC Yellow Pale to Dark Yellow [facility] CLARITY UA POC Clear Clear, Other [facility] GLUCOSE UA POC 3+(A) Negative, Normal [facility] BILIRUBIN UA POC Negative Negative [facility] KETONES UA POC Negative Negative [facility] SPECIFIC GRAVITY UA POC 1.015 1.000 - 1.030 [facility] BLOOD UA POC Trace(A) Negative [facility] PH UA POC 7.0 5.0 - 8.0 [facility] PROTEIN UA POC 1+(A) Negative [facility] UROBILINOGEN UA POC 0.2 <2.0 mg/dL [facility] NITRITE UA POC Negative Negative [facility] LEUKOCYTE ESTERASE UA POC Negative Negative [facility] KIT LOT NUMBER POC [id number] [facility] KIT EXP DATE POC 06/13/2026 [facility] Urine 07/05/2025 11:1 0 AM CDT us Arnulfo Son MD POINT OF CARE TESTING Final R esult [facility] UROLOGY [facility] CLARCHIE# [id number] [facility] [address] [place] [address] documented in this encounter Visit Diagnoses Diagnosis Prostate cancer (CMS/HCC)- Primary Malignant neoplasm of prostate documented in this encounter Care Teams Manager Adobe Relationship Specialty Start Date End Date Isabela Augustine DO PCP - General Family Practice 12/22/19 documented as of this encounter
--- OUTSIDE RECORDS SUMMARY | 2025-07-06 10:51 | XMS_ITS | Encounter Summary ---
Author Organization [facility] Address [address] [place] [address] Care Team Providers Care Offset Machine Operator Name Role Phone Isabela Augustine Primary Care Provider [phone]- [phone] Encounter Details Date Type Department Care Team (Late Contact Info) Description 05/10/2025 Results Follow-Up [facility] GASTROENTEROLOGY - [address] [facility] 102 [address] [address] [place] [address] [address] [place] [address] IGG SUBCLASSES Social History Tobacco Use Types Packs/Day Years [...] on file documented as of this encounter Plan of Treatment Upcoming Encounters Date Type Department Care Team (Late Contact Info) Description 07/09/2025 10:30 AM CDT Appointment [facility] [address] [place] [address] [place] [address] [facility] [address] [place] [address] [facility] 07/09/2025 11:00 AM CDT Office Visit [facility] [address] [facility] [address] [place] [address] Candy Arteaga, [facility] [address] [place] [address] 07/12/2025 2:45 PM CDT Office Visit [facility] Heart and Vascular - [address] [address] [facility] 300 [place] [address] [place] [address] [facility] 300 [place] [address] 07/29/2025 8:45 AM CDT Office Visit [facility] Oncology and Hemat[facility] [address] [facility] [address] [place] [address] [place] [address] [facility] [address] [place] [address] 07/29/2025 9:00 AM CDT Appointment [facility] Infusion [facility] [address] [place] [address] [place] [address] [address] [place] [address] [facility], Chair # 9 Infusion [facility], Port Draw Infusion documented as of this encounter Visit Diagnoses Not on filedocumented in this encounter Care Teams Offset Machine Operator Relationship Specialty Start Date End Date Isabela Augustine DO PCP - General Family Practice 12/22/19 documented as of this encounter
--- OUTSIDE RECORDS SUMMARY | 2025-07-06 10:51 | XMS_ITS ---
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 Aortic root dilatation 06/29/2020 A-fib 12/17/2019 PAF (paroxysmal atrial fibrillation) 10/21/2019 Chronic anticoagulation 10/21/2019 Coronary artery disease invo lving [place] coronary artery of [place] heart with unstable angina pectoris 04/15/2019 Palpitations 04/15/2019 Dyslipidemia 04/15/2019 Old [place] (myocardial infarction) 04/15/2019 Anxiety 02/12/2019 Atrial fibrillation with RVR 02/12/2019 BPH (benign prostatic hyperplasia) 02/12/2019 Clicking tinnitus 02/12/2019 Essential hypertension 02/12/2019 GERD (gastroesophageal reflux disease) 9 Type 2 diabetes mellitus 02/12/2019 Benign colon polyp 03/31/2018 History of coronary artery bypass surgery 2014 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 OP ONC NHL FOLLICULAR OR MANTLE CELL_RITUXIMAB_BENDAMUSTINE_EVERY 28 DAYS* Plan Start Date:06/16/2025 Plan Provider:Norman Doherty MD Linked Problems Malignant lymphoma, follicul ar center cell (CMS/HCC) Treatment Medications Current Day (Day 1 , Cycle 2 - Planned for 07/29/2025) Next Day (Day 2, Cycle 2 - Planned for 07/30/2025) bendamustine (TREANDA) IVPBriTUXimab or biosimilarriTUXimab or biosimilar IVPBriTUXimab-abbs (TRUXIMA) 1 mg/mL IVPB bendamustine (TREANDA) 175 mg in sodium chloride 0.9 % 500 mL IVPBriTUXimab-abbs (TRUXIMA) 791 mg in sodium chloride 0.9 % 250 mL IVPB bendamustine (TREANDA) 175 mg in sodium chloride 0.9 % 500 mL IVPB Past Treatment and Therapy Plans No past plan information found. Lifetime Dose Tracking * Chemical Lifetime Dose Automatic Entry Manual Entr y Effective Dose 42.57 mSv 42.57 mSv 0 mSv Total DLP 2,360.49 DLP 2,360.49 DLP 0 DLP CTDIvol Max 52.43 mGy 52.43 mGy 0 mGy CTDIvol Min 9.3 mGy 9.3 mGy 0 mGy Resolved Problems Problem Noted Date Diagnosed Date Resolved Date Right inguinal hernia 04/09/20192018 Left main coronary artery disease 05/20/2015 08/24/2019
--- OUTSIDE RECORDS SUMMARY | 2025-07-06 10:51 | XMS_ITS | Clinical Summary ---
Author Organization [facility] [address] [place] [address] Care Team Providers Care Sand Slinger Operator Name Role Phone Ben Aceves MD Unavailable [phone] Surendra Ramos MD Unavailable [phone] No, Physician Primary Care Provider [phone] Allergies Active Allergy Reactions Criticality Noted Date Comments Sulfa (Sulfonamide Antibiotics) Rash Medium 01/12 Medications dilTIAZem XR (dilTIAZem CD) 240 mg 24 hr capsule Take 1 capsule (240 mg total) by mouth daily 30 capsule Active clopidogreL (PLAVIX) 75 mg tabletIndications:Coron vicente artery disease of [place] artery of [place] heart with stable angina pectoris Take 1 [...] 2 diabetes mellitus (HCC),Coronary artery disease of [place] artery of [place] heart with stable angina pectoris Take 1 tablet (100 mg total) by mouth daily 90 tablet 3 020 Active rosuvastatin (CRESTOR) 40 mg tabletIndications:Dysli pidemia with low high density lipoprotein (HDL) cholesterol with hypertriglyceridemia due to type 2 diabetes mellitus (HCC),Type 2 diabetes mellitus without complication, without long-term current use of insulin (HCC),Coronary artery disease of [place] artery of [place] heart with stable angina pectoris Take 1 [...] Patient would like to switch to a technical support analyst closer to home. Referral placed. Assessment & [...] with Crestor and Zetia. D/C Vytorin. Old [place] (myocardial infarction) 04/15/2019 Anxiety 02/12/2019 BPH (benign [...] artery disease of [place] artery of [place] heart with stable angina pectoris 05/20/2015 Assessment & Plan (06/06/2020 10:38 AM CDT): Asx. Cont current mgmt. Assessment & Plan (05/16/2020 7:18 PM CDT): S/p CABG 2014. Assessment & Plan (12/31/2019 4:35 PM CDT): Asx. Managed by cardiology. Patient mentioned towards the end of his visit that he may be interested in going to a technical support analyst in town. Will think about it. Resolved Problems Problem Noted Date Diagnosed Date Resolved Date Pneumonia 05/16/2020 06/06/2020 Assessment & Plan (05/16/2020 7:13 PM CDT): RML per CT performed at [facility]. Initiated on IV azithromycin and continue on [...] Plan of Treatment Not on file Insurance [facility] Advance Directives For more information, please contact: [phone] * Full Code (Latest Code Status on File) Date Activated Date Inactivated Comments 05/16/2020 7:20 PM 05/17/2020 7:49 PM Care Teams Sand Slinger Operator Relationship Specialty Start Date End Date No, Physician PCP - General 09/21/20 [place] [address] [place] [address] Referring Physician Cardiovascular Disease 12/29/19 [place] [address] [facility] [address] [place] [address] Consulting Physician Pulmonary Disease 05/17/20
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
--- OUTSIDE RECORDS SUMMARY | 2025-07-06 10:51 | XMS_ITS | Encounter Summary ---
Author Organization [facility] Address [address] [place] [address] Care Team Providers Care Crew Clerk Name Role Phone Unavailable Primary Care Provider Unavailabl e Prior Encounters Date Type Department Care Team Description 11/02/2019 Converted CPS Chart Documents [facility] [address] [place], [place] [address] <No scans attached> 11/02/2019 Converted 13x Documents [facility] [address] [place] [address] <No scans attached> Plan of Treatment Not on file Procedures Procedure Name Priority Date/Time Associated Diagnosis Comments CANCELLED APPOINTMENT Routine 03/16/2019 2:00 AM CDT ORAL HYGIENE INSTRUCTIONS Routine 2017 2:00 AM SENIOR PRODUCT ENGINEER PROPHYLAXIS - ADULT Routine 09/24/2018 2 :00 AM SENIOR PRODUCT ENGINEER PERIODIC ORAL EVALUATION - ESTABLISHED PATIENT Routine 09/09/2018 2:00 AM SENIOR PRODUCT ENGINEER BITEWINGS - FOUR RADIOGRAPHIC IMAGES Routine 09/09/2018 2:00 AM SENIOR PRODUCT ENGINEER PERIODIC ORAL EVALUATION - ESTABLISHED PATIENT Routine [...] COMPOSITE FILLING Routine 10/24/19 17 2:00 AM SENIOR PRODUCT ENGINEER 18 MO COMPOSITE FILLING Routine 10/24/19 17 2:00 AM SENIOR PRODUCT ENGINEER PERIODIC ORAL EVALUATION - ESTABLISHED PATIENT Routine 10/10/2016 2:00 AM SENIOR PRODUCT ENGINEER ORAL HYGIENE INSTRUCTIONS Routine 2015 2:00 AM SENIOR PRODUCT ENGINEER PROPHYLAXIS - ADULT Routine 10/10/2016 2 :00 AM SENIOR PRODUCT ENGINEER BITEWINGS - FOUR RADIOGRAPHIC IMAGES Routine 10/10/2016 2:00 AM SENIOR PRODUCT ENGINEER ADDITIONAL X-RAY Routine 10/10/2016 2:00 AM SENIOR PRODUCT ENGINEER ADDITIONAL X-RAY Routine 10/10/2016 2:00 AM SENIOR PRODUCT ENGINEER ADDITIONAL X-RAY Routine 10/10/2016 2:00 AM SENIOR PRODUCT ENGINEER ADDITIONAL X-RAY Routine 10/10/2016 2:00 AM SENIOR PRODUCT ENGINEER ADDITIONAL X-RAY Routine 10/10/2016 2:00 AM SENIOR PRODUCT ENGINEER SINGLE X-RAY Routine 10/10/2016 2:00 AM SENIOR PRODUCT ENGINEER PERIODIC ORAL EVALUATION - ESTABLISHED PATIENT Routine 04/03/2016 2:00 AM CDT ORAL HYGIENE INSTRUCTIONS Routine 2015 2:00 AM CDT PROPHYLAXIS - ADULT Routine 04/03/2016 2 :00 AM CDT BITEWINGS - FOUR RADIOGRAPHIC IMAGES Routine 04/03/2016 2:00 AM CDT ADDITIONAL X-RAY Routine 04/03/2016 2:00 AM CDT ADDITIONAL X-RAY Routine 04/03/2016 2:00 AM CDT ADDITIONAL X-RAY Routine 04/03/2016 2:0 0 AM CDT ADDITIONAL X-RAY Routine 04/03/2016 2:00 AM CDT ADDITIONAL X-RAY Routine 04/03/2016 2:00 AM CDT SINGLE X-RAY Routine 04/03/2016 2:00 AM CDT 30 PREFABRICATED POST AND CORE IN ADDITION TO CROWN Routine 09/27/2015 2:00 AM SENIOR PRODUCT ENGINEER 29 PREFABRICATED POST AND CORE IN ADDITION TO CROWN Routine 09/27/2015 2:00 AM SENIOR PRODUCT ENGINEER 19 ENDODONTIC THERAPY, MOLAR TOOTH (EXCLUDING FINAL ORTHODOX) Routine 09/27/2015 2:00 AM SENIOR PRODUCT ENGINEER 14 ENDODONTIC THERAPY, MOLAR TOOTH (EXCLUDING FINAL ORTHODOX) Routine 09/27/2015 2:00 AM SENIOR PRODUCT ENGINEER 30 ENDODONTIC THERAPY, PREMOLAR TOOTH (EXCLUDING FINAL ORTHODOX) Routine 09/27/2015 2:00 AM SENIOR PRODUCT ENGINEER 29 ENDODONTIC THERAPY, PREMOLAR TOOTH (EXCLUDING FINAL ORTHODOX) Routine 09/27/2015 2:00 AM SENIOR PRODUCT ENGINEER 30 CROWN PFM POST Routine 09/27/2015 2:0 0 AM SENIOR PRODUCT ENGINEER 29 CROWN PFM POST Routine 09/27/2015 2:0 0 AM SENIOR PRODUCT ENGINEER 19 CROWN PFM POST Routine 09/27/2015 2:0 0 AM SENIOR PRODUCT ENGINEER 14 CROWN PFM POST Routine 09/27/2015 2:0 0 AM SENIOR PRODUCT ENGINEER COMPREHENSIVE ORAL EVALUATION - NEW OR ESTABLISHED PATIENT Routine 09/27/2015 2:00 AM SENIOR PRODUCT ENGINEER ORAL HYGIENE INSTRUCTIONS Routine 2014 2:00 AM SENIOR PRODUCT ENGINEER TOPICAL APPLICATION OF FLUORIDE VARNISH Routine 09/27/2015 2:00 AM SENIOR PRODUCT ENGINEER PROPHYLAXIS - ADULT Routine 09/27/2015 2 :00 AM SENIOR PRODUCT ENGINEER PANORAMIC RADIOGRAPHIC IMAGE Routine 09/27/2015 2:00 AM SENIOR PRODUCT ENGINEER INTRAORAL - COMPREHENSIVE SERIES OF RADIOGRAPHIC IMAGES Routine 09/27/2015 2:00 AM SENIOR PRODUCT ENGINEER INTRAORAL PHOTO Routine 09/27/2015 2:00 AM SENIOR PRODUCT ENGINEER INTRAORAL PHOTO Routine 09/27/2015 2:00 AM SENIOR PRODUCT ENGINEER INTRAORAL PHOTO Routine 09/27/2015 2:00 AM SENIOR PRODUCT ENGINEER INTRAORAL PHOTO Routine 09/27/2015 2:00 AM SENIOR PRODUCT ENGINEER 15 MOD COMPOSITE FILLING Routine 015 2:00 AM SENIOR PRODUCT ENGINEER 13 MOD COMPOSITE FILLING Routine 015 2:00 AM SENIOR PRODUCT ENGINEER 3 MOD COMPOSITE FILLING Routine 09/27/20 15 2:00 AM SENIOR PRODUCT ENGINEER 12 DO COMPOSITE FILLING Routine 09/27/20 2:00 AM SENIOR PRODUCT ENGINEER 4 DO COMPOSITE FILLING Routine 5 2:00 AM SENIOR PRODUCT ENGINEER 18 O COMPOSITE FILLING Routine 5 2:00 AM SENIOR PRODUCT ENGINEER 2 O COMPOSITE FILLING Routine 09/27/2015 2:00 AM SENIOR PRODUCT ENGINEER Visit Diagnoses Not on file
--- OUTSIDE RECORDS SUMMARY | 2025-07-06 10:51 | XMS_ITS | Clinical Summary ---
Author Organization [facility] Health Address [address] [facility] [place] [address] Care Team Providers Care Grain Ii Farmworker Name Role Phone Unavailable Primary Care Provider [...]
--- OUTSIDE RECORDS SUMMARY | 2025-07-06 10:52 | XMS_ITS | Encounter Summary ---
Author Organization [employer] Address [address] [place] [address] Care Team Providers Care Matcher Leather Parts Name Role Phone Isabela Augustine Primary Care Provider +1- [phone] Encounter Details Date Type Department Care Team (Late st Contact Info) Description 07/05/2025 External Device Data STL ABSTRACTION Provider, Abstract NO ADDRESS ON FILE Social History Tobacco Use Types Packs/Day Years [...] 07/09/2025 10:30 AM CDT Appointment [facility] Infusion Services [facility] [address] [place] [address] [place] [address] [address] [facility] [address] [place] [address] D[facility], Port Draw Infusion 07/09/2025 11:00 AM CDT Office Visit [facility] Oncology and Hematology [facility] [address] [address] [place] [address] Candy Arteaga, ASSISTANT CREDIT MANAGER [address] [place] [address] 07/12/2025 2:45 PM CDT Office Visit [facility] [address] [facility] [address] [facility] [address] [place] [address] [place] [address] [facility] [address] [place], [place] [address] 07/29/2025 8:45 AM CDT Office Visit [facility] Oncology and Hematology [facility] [address] [address] [place] [address] [place] [address] [facility] [address] [place] [address] 07/29/2025 9:00 AM CDT Appointment [facility] Infusion Services [facility] [address] [place] [address] [place] [address] [facility] [address] [place] [address] [facility], Chair # 9 Infusion [facility], Port Draw Infusion documented as of this encounter Visit Diagnoses Not on filedocumented in this encounter Care Teams Matcher Leather Parts Relationship Specialty Start Date End Date Isabela Augustine DO PCP - General Family Practice 12/22/19 documented as of this encounter
--- OUTSIDE RECORDS SUMMARY | 2025-07-06 10:52 | XMS_ITS | Encounter Summary ---
Author Organization [employer] Address [address] [place] [address] Care Team Providers Care Signal Inspector Name Role Phone Isabela Augustine Primary Care Provider +1- [phone] Encounter Details Date Type Department Care Team (Late st Contact Info) Description 07/06/2025 External Device Data STL ABSTRACTION Provider, Abstract [...] Info) Description 07/09/2025 10:30 AM CDT [facility]ment [facility] [address] [place] [address] [place] [address] [address] [facility] [address] [place] [address] Dms[facility], Port Draw Infusion 07/09/2025 11:00 AM CDT Office Visit [facility] Oncology and Hematology [facility] [address] [address] [place] [address] Candy Arteaga, PEARL PELLER [address] [place] [address] 07/12/2025 2:45 PM CDT Office Visit [facility] Heart [facility]ascular - [address] [facility] 300 [address] [facility] [address] [place] [address] [place] [address] [facility] [address] [place], [place] [address] 07/29/2025 8:45 AM CDT Office Visit [facility] Oncology and Hematology [facility] [address] [address] [place] [address] [place] [address] [facility] [address] [place] [address] 07/29/2025 9:00 AM CDT Appointment [facility] Infusion Services [facility] [address] [place] [address] [place] [address] [facility] [address] [place] [address] [facility], Chair # 9 Infusion [facility], Port Draw Infusion documented as of this encounter Visit Diagnoses Not on filedocumented in this encounter Care Teams Signal Inspector Relationship Specialty Start Date End Date Isabela Augustine DO PCP - General Family Practice 12/22/19 documented as of this encounter
--- OUTSIDE RECORDS SUMMARY | 2025-07-06 10:52 | XMS_ITS | Clinical Summary ---
Author Organization [facility] Address [address] [place] [address] Phone Care Team Providers Care Inseamer Name Role Phone Carlos Stephen MD Unavailable [...] Office Visit [facility] [address] [place] [address] Carlos Stephen MD Elevated PSA (Primary Dx) Discharge Disposition: Discharged to home or Selfcare 04/21/2025 Travel 04/06/2025 Telephone [facility] [address] [place] [id number] Carlos Stephen MD from Last 3 Months Social History Tobacco [...] (5 0+ years) (2 of 2 - PPSV23, PCV20, or PCV21) 10/22/2019 08/27/2019 Welcome to Medicare (IPPE) G0402 12/12/2024 Zoster Immunization (2 of 2) 04/17/202507/2025, 04/27/2015 [...] Routine 04/21/2025 9:15 AM CDT Elevated PSA from Last 3 Months Results * (ABNORMAL) POCT UA AUTOMATED W/O MICRO (04/21/2025 9:15 AM CDT) POC UA SPECIFIC GRAVITY 1.000 URINE PH [...] OF CARE TESTING (MANUAL) F inal Result from Last 3 Months Insurance MEDICARE C [employer] Care Teams Inseamer Relationship Specialty Start Date End Date Barb Singh APRN, ONE PIECE EXPANSION MAKER HAND [address] [place] [address] PCP - General Primary Care 02/24/25 Carlos Stephen MD #[address] [facility] 300 [place] [address] Consulting Physician Urology 02/22/25
--- OUTSIDE RECORDS SUMMARY | 2025-07-06 10:52 | XMS_ITS | Encounter Summary ---
Author Organization [facility] Address [address] [place] [address] Care Team Providers Care Head Men'S Golf Coach Name Role Phone Isabela Augustine Primary Care Provider +1- [phone] Encounter Details Date Type Department Care Team (Late Contact Info) Description 07/05/2025 Orders Only [facility] Heart and Vascular - [address] [facility] 300 [address] [facility] 300 [place] [address] [place] [address] [facility] 300 [place] [address] Longstanding persistent atrial fibrillation (CMS/HCC) Social History Tobacco Use Types Packs/Day Years [...] Info) Description 07/09/2025 10:30 AM CDT Appointment [facility] [address] [place] [address] [place] [address] [facility] [address] [place] [address] [facility] 07/09/2025 11:00 AM CDT Office Visit [facility] Oncology and Hematology [facility] [address] [facility] [address] [place] [address] Candy Arteaga, [facility] [address] [place] [address] 07/12/2025 2:45 PM CDT Office Visit [facility] Heart and Vascular - [address] [facility] 300 [address] [facility] 300 [place] [address] [place] [address] [facility] 300 [place] [address] 07/29/2025 8:45 AM CDT Office Visit [facility] Oncology and Hematology [facility] [address] [facility] [address] [place] [address] [place] [address] [facility] [address] [place] [address] 07/29/2025 9:00 AM CDT Appointment [facility] Infusion Services [facility] [address] [place] [address] [place] [address] [facility] [address] [place] [address] [facility], Chair # 9 [facility]fusion [facility] documented as of this encounter Visit Diagnoses Diagnosis Longstanding persistent atrial fibrillation (CMS/HCC) documented in this encounter Care Teams Head Men'S Golf Coach Relationship Specialty Start Date End Date Isabela Augustine DO PCP - General Family Practice 12/22/19 documented as of this encounter
--- OUTSIDE RECORDS SUMMARY | 2025-07-06 10:52 | XMS_ITS | Encounter Summary ---
Author Organization [facility] Address [address] [place] [address] Care Team Providers Care Security Inspector Name Role Phone Isabela Augustine Primary Care Provider [phone]- [phone] Reason for Visit * Reason Onset Date Comments Surgery 07/05/2025 Encounter Details Date Type Department Care Team (Late st Contact Info) Description 07/05/[address] [facility] [address] [facility] [place] [address] [place] [address] [place] [address] [facility] [place], [facility] [address] [place] [address] Surgery Social History Tobacco Use Types Packs/Day Years [...] encounter Miscellaneous Notes * Telephone Encounter - Bisi Jo - 07/05/2025 2:00 PM CDT Will need to schedule 07/22 with Bronwyn is SOW * Telephone Encounter - Bisi Jo - 07/05/2025 12:17 PM CDT Dx:prostate cancer , abnormal gu imaging Procedure : Uronav fusion transperineal prostate biopsy Length of surgery: 30 minutes Anesthesia: Mac Antibiotics: per my usual biopsy protocol Clearance: yes Anticoagulation: yes Special equipment: uronav ultrasound equipment and rep Have Bronwyn available to marquis Timing , as soon as possible Need mri images from [place]. documented in this encounter Plan of Treatment Upcoming Encounters Date Type Department Care Team (Late st Contact Info) Description 07/09/2025 10:30 AM CDT Appointment [facility] Infusion Services [facility] [address] [place] [address] [place] [address] [facility] [address] [place] [address] Dms[facility], Port Draw Infusion 07/09/2025 11:00 AM CDT Office Visit [facility] Oncology and Hematology [facility] [address] [facility] [address] [place] [address] Candy Arteaga, [facility] [address] [place] [id number] 07/12/2025 2:45 PM CDT Office Visit [facility] Heart and Vascular - [address] [facility] [address] [address] [facility] [address] [place] [address] [place] [address] [facility] [address] [place], [place] [id number] 07/29/2025 8:45 AM CDT Office Visit [facility] Oncology and Hematology [facility] [address] [facility] [address] [place] [address] [place] [address] [address] [facility] [address] [place] [address] 07/29/2025 9:00 AM CDT Appointment [facility] Infusion Services [facility] [address] [place] [address] [place] [address] [address] [facility] [address] [place] [address] [facility] [place] [address] Infusion [facility], Port Draw Infusion documented as of this encounter Visit Diagnoses Not on filedocumented in this encounter Care Teams Security Inspector Relationship Specialty Start Date End Date Isabela Augustine DO PCP - General Family Practice 12/22/19 documented as of this encounter
--- OUTSIDE RECORDS SUMMARY | 2025-07-06 10:52 | XMS_ITS | Clinical Summary ---
Author Organization [facility] [id number] [facility] Address [address] [place] [address] Care Team Providers Care Control Clerk Food And Beverage Name Role Phone Isabela Augustine Primary Care Provider [phone] Allergies Active Allergy Reactions Criticality Noted Date Comments Sulfa (Sulfonamide Antibiotics) Rash Low 04/2025 Medications zinc 50 mg Tablet Take 50 mg by mouth daily. Active warfarin (Jantoven) 2 mg tablet Take 1.5 Tablets (3 mg) by mouth daily. 135 Tablet 2 09/06/20 20 Active metFORMIN (GLUCOPHAGE) 500 mg tablet Take 500 mg by mouth 2 times daily with meals. 11/12/19 25 Active ALPRAZolam (XANAX) 0.5 mg tablet Take 0.5 mg by mouth nightly as needed. 10/08/20 24 Active oxyBUTYnin (DITROPAN XL) 10 mg Extended Release 24 hour tablet Take 10 mg by mouth daily. 11/20/19 25 Active pantoprazole (PROTONIX) 40 mg Tablet, Delayed Release (E.C.) Take 40 mg by mouth daily. 12/29/19 25 Active tamsulosin (FLOMAX) 0.4 mg capsule Take 0.4 mg by mouth daily. 11/20/19 25 Active amLODIPine (NORVASC) 2.5 mg tablet Take 1 Tablet (2.5 mg) by mouth daily. 100 Tablet 3 01/05/20 25 Active atorvastatin (LIPITOR) 80 mg tablet Take 1 Tablet (80 mg) by mouth daily at bedtime. 100 Tablet 3 01/05/20 25 Active ezetimibe (ZETIA) 10 mg tablet Take 1 Tablet (10 mg) by mouth daily. 90 Tablet 1 01/05/20 25 Active losartan (COZAAR) 100 mg tablet Take 1 Tablet (100 mg) by mouth daily. 100 Tablet 3 01/05/20 25 Active metoprolol succinate (TOPROL XL) 100 mg Extended Release 24 hour tablet TAKE 1 TABLET BY MOUTH EVERY DAY 90 Tablet 3 01/05/20 25 Active dapagliflozin propanediol (Farxiga) 10 mg Tablet Take 1 Tablet (10 mg) by mouth daily. 90 Tablet 1 05/21/20 25 Active oxyCODONE-aceta minophen (PERCOCET) 5-325 mg tablet Take 1 Tablet by mouth every 4 hours as needed for Pain, Moderate. Max Daily Amount: 30 Tablets 15 Tablet 05/26/20 25 Active prochlorperazin e maleate (COMPAZINE) 10 mg tabletIndicatio ns:Malignant lymphoma, follicular center cell (CMS/HCC),Media stinal mass,Hodgkin lymphoma of intra-abdominal lymph nodes, unspecified Hodgkin lymphoma type (CMS/HCC) Take 1 Tablet (10 mg) by mouth every 6 hours as needed for Nausea/Emesis. 30 Tablet 3 06/22/20 25 Active lidocaine-prilo harlan (EMLA) 2.5-2.5 % CreamIndication s:Malignant lymphoma, follicular center cell (CMS/HCC),Media stinal mass,Hodgkin lymphoma of intra-abdominal lymph nodes, unspecified Hodgkin lymphoma type (CMS/HCC) Apply to affected area see administration instructions. 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 Aortic root dilatation 06/29/2020 A-fib 12/17/2019 PAF (paroxysmal atrial fibrillation) 10/21/2019 Chronic anticoagulation 10/21/2019 Coronary artery disease invo lving qagan tayagungin coronary artery of qagan tayagungin heart with unstable angina pectoris 04/15/2019 Palpitations 04/15/2019 Dyslipidemia 04/15/2019 Old AR (myocardial infarction) 04/15/2019 Anxiety 02/12/2019 Atrial fibrillation with RVR 02/12/2019 BPH (benign prostatic hyperplasia) 02/12/2019 Clicking tinnitus 02/12/2019 Essential hypertension 02/12/2019 GERD (gastroesophageal reflux disease) 9 Type 2 diabetes mellitus 02/12/2019 Benign colon polyp 03/31/2018 History of coronary artery bypass surgery 2014 Coronary artery disease invo lving qagan tayagungin coronary artery with unstable angina pectoris 05/20/2015 Hyperlipidemia 05/20/2015 Resolved Problems Problem Noted Date Diagnosed Date Resolved Date Right inguinal hernia 04/09/20192018 Left main coronary artery disease 05/20/2015 08/24/2019 Encounters Date Type Department Care Team Description 07/06/2025 External Device Data STL ABSTRACTION Provider, Abstract 07/06/2025 External Device Data STL ABSTRACTION Provider, Abstract 07/05/2025 10:15 AM CDT Office Visit [facility] [address] [facility] [address] [place] [address] Arnulfo Son MD Prostate cancer ([facility]) (Primary Dx) 07/05/2025 Telephone [facility] Hematology [facility] [address] [facility] [address] [place] [address] Lila Nath, RN Nurse Navigation 07/05/2025 Telephone [facility] [address] [facility] [address] [place] [address] Arnulfo Son MD Surgery 07/05/2025 Telephone [facility] [address] [facility] [address] [place] [address] Parth Robert MD symptom tracker 07/05/2025 External Device Data STL ABSTRACTION Provider, Abstract 07/05/2025 External Device Data STL ABSTRACTION Provider, Abstract 07/05/2025 External Device Data STL ABSTRACTION Provider, Abstract 07/05/2025 External Device Data STL ABSTRACTION Provider, Abstract 07/05/2025 Orders Only [facility] - [address] [facility] [address] [address] [facility] [address] [place] [address] Ben Aceves MD Longstanding persistent atrial fibrillation ([facility]/HCC) 07/04/2025 External Device Data STL ABSTRACTION Provider, Abstract 07/04/2025 External Device Data STL ABSTRACTION Provider, Abstract 07/03/2025 External Device Data STL ABSTRACTION Provider, Abstract 07/03/2025 External Device Data STL ABSTRACTION Provider, Abstract 07/02/2025 2:00 PM CDT - 07/02/2025 11:59 PM CDT Hospital Encounter [facility] [address] [place] [address] Parth Robert MD [facility], Chair # 11 Infusion Discharge Disposition: Home or Self Care 07/01/2025 8:02 AM CDT - 07/01/2025 11:59 PM CDT Hospital Encounter [facility] [address] [place] [address] Candy Arteaga FNP [facility], Chair # 7 [facility]fusion [facility] Discharge Disposition: Home or Self Care 07/01/2025 8:00 AM CDT Office Visit [facility] H[facility] [address] [place] [address] Candy Arteaga FNP Malignant lymphoma, follicular center cell (CMS/HCC) (Primary Dx); Encounter to discuss test results 07/01/2025 Chart Note [facility] [address] [place] [address] Diamond Nuñez, [employer] ACCESS DEVELOPER Follow Up 07/01/2025 Anti-coag visit [facility] - [address] [facility] 300 [address] [address] [place] [address] Ben Aceves MD Longstanding persistent atrial fibrillation (CMS/HCC) (Primary Dx) 07/01/2025 Chart Note [facility] [address] [address] [place] [address] Lila Nath RN 06/29/2025 External Device Data STL ABSTRACTION Provider, Abstract 06/28/2025 Orders Only [facility] - [address] [facility] 300 [address] [facility] [address] [place] [address] Ben Aceves MD Longstanding persistent atrial fibrillation (CMS/HCC) 06/24/2025 6:37 AM CDT - 06/24/2025 9:41 AM CDT Hospital Encounter [facility] Pre Post Recovery [address] [place] [address] Candy Arteaga FNP Malignant lymphoma, follicular center cell (CMS/HCC) Discharge Disposition: Home or Self Care 06/22/2025 1:00 PM CDT Office Visit [facility] Hematology [facility] [address] [facility] [address] [place] [address] Candy Arteaga FNP Malignant lymphoma, follicular center cell (CMS/HCC) (Primary Dx); Mediastinal mass; Hodgkin lymphoma of intra-abdominal lymph nodes, unspecified Hodgkin lymphoma type ([facility]/HCC) 06/22/2025 External Device Data STL ABSTRACTION Provider, Abstract 06/22/2025 External Device Data STL ABSTRACTION Provider, Abstract 06/22/2025 Abstract [facility] [address] [facility] [address] [place] [address] Candy Arteaga FNP 06/22/2025 Anti-coag visit [facility] - [address] [facility] 300 [address] [facility] [address] [place] [address] Ben Aceves MD Longstanding persistent atrial fibrillation (CMS/HCC) (Primary Dx) 06/22/2025 Abstract [facility] [address] [facility] [address] [place] [address] Guero Burk MD 06/22/2025 Orders Only [facility] - [address] [facility] [address] [address] [facility] [address] [place] [address] Provider, Abstract 06/17/2025 9:00 AM CDT Office Visit [facility] [address] [place] [address] Parth Robert MD Malignant lymphoma, follicular center cell (CMS/HCC) (Primary Dx); Abdominal mass, unspecified abdominal location; Mediastinal mass; Encounter to discuss test results; Encounter to discuss treatment options 06/17/2025 Telephone [facility] [address] [place] [address] Michael Jean Baptiste, LEWIS Referral 06/17/2025 Abstract [facility] [address] [facility] [address] [place] [address] Parth Robert MD 06/17/2025 Orders Only [facility] [address] [facility] [address] [place] [address] Candy Arteaga FNP Malignant lymphoma, follicular center cell (CMS/HCC) (Primary Dx); Mediastinal mass 06/17/2025 Chart Note [facility] [address] [place] [address] Diamond Nuñez LCSW Financial Assistance Program 06/17/2025 Chart Note [facility] [address] [facility] [address] [place] [address] Lila Nath, SARBJIT 06/17/2025 Chart Note [facility] [address] [facility] [address] [place] [address] Lila Nath, SARBJIT 06/15/2025 Telephone [facility] [address] [place] [address] Diamond Nuñez LCSW Financial Assistance Program 06/11/2025 1:00 PM CDT Procedure visit [facility] [address] [facility] [address] [place] [address] Arnulfo Son MD Elevated PSA (Primary Dx); Prostate cancer (CMS/HCC) 06/11/2025 Chart Note [facility] [address] [place] [address] Diamond Nuñez LCSW Financial Assistance Program 06/07/2025 Telephone [facility] Infusion Services [facility] [address] [place] [address] Diamond Nuñez LCSW Financial Assistance Program 06/03/2025 Telephone [facility] Infusion Services [facility] [address] [place] [address] Diamond Nuñez LCSW Financial Assistance Program 06/01/2025 10:58 AM CDT - 06/01/2025 2:43 PM CDT Hospital Encounter [facility] Pre Post Recovery [address] [place] [address] Parth Robert MD Discharge Disposition: Home or Self Care 06/01/2025 External Device Data STL ABSTRACTION Provider, Abstract 05/28/2025 10:54 AM CDT - 05/28/2025 11:59 PM CDT Hospital Encounter [facility] [address] [place] [address] Parth Robert MD Discharge Disposition: Home or Self Care 05/28/2025 9:30 AM CDT Office Visit [facility] [address] [facility] [address] [place] [address] Arnulfo Son MD Elevated PSA (Primary Dx); Abnormal MRI of the prostate 05/28/2025 Results Follow-Up [facility] - [address] [facility] 102 [address] [facility] [address] [place] [address] Bhumi Jaeger MD CYTOLOGY, NON GYNE 05/27/2025 Telephone [facility] Infusion [facility] [address] [place] [address] Diamond Nuñez LCSW Referral 05/27/2025 Telephone [facility] H[facility] [address] [address] [facility] [address] [place] [address] Lila Nath, RN Nurse Navigation 05/26/2025 3:06 PM CDT - 05/26/2025 11:59 PM CDT Hospital Encounter [facility] Oncology Services [facility] [address] [place] [address] Parth Robert MD Discharge Disposition: Home or Self Care 05/26/2025 2:00 PM CDT Office Visit [facility] [address] [address] [facility] [address] [place] [address] Parth Robert MD Abdominal mass, unspecified abdominal location (Primary Dx); Abnormal findings on diagnostic imaging of other abdominal regions, including retroperitoneum; History of prostate cancer; Mediastinal mass 05/26/2025 Chart Note [facility] [address] [address] [facility] [address] [place] [address] Lila Nath RN 05/21/2025 Refill [facility] - [address] [facility] 300 [address] [facility] [address] [place] [address] Ben Aceves MD 05/12/2025 Telephone [facility] - [address] [facility] 102 [address] [facility] [address] [place] [address] Nidhi Valentine, COMPOUNDING PHARMACY TECHNICIAN Results (Outgoing call to discuss lymph node biopsy results) 05/11/2025 Telephone [facility] - [address] [facility] 102 [address] [facility] [address] [place] [address] Bhumi Jaeger MD cytology 05/10/2025 Results Follow-Up [facility] - [address] [facility] 102 [address] [facility] [address] [place] [address] Bhumi Jaeger MD IGG SUBCLASSES 05/03/2025 Telephone [facility] - [address] [facility] 102 [address] [facility] [address] [place] [address] Bhumi Jaeger MD GI Problem 04/30/2025 Telephone [facility] - [address] [facility] 102 [address] [facility] [address] [place] [address] Bhumi Jaeger MD Referral 04/29/2025 9:48 AM CDT Anesthesia Event [facility] [address] [place] [address] Cliff Araiza MD Wagner, Caitlin E, CHUNG-Jonathan 04/29/2025 9:30 AM CDT - 04/29/2025 10:30 AM CDT Surgery [facility] [address] [place] [address] Bhumi Jaeger MD ULTRASOUND ENDOSCOPIC 04/29/2025 8:50 AM CDT - 04/29/2025 12:36 PM CDT Hospital Encounter [facility] [address] [place] [address] Bhumi Jaeger MD Lymphadenopathy Discharge Disposition: Home or Self Care 04/28/2025 External Device Data STL ABSTRACTION Provider, Abstract 04/27/2025 External Device Data STL ABSTRACTION Provider, Abstract 04/12/2025 Orders Only [facility] - [address] [facility] 202 [address] [facility] [address] [place] [address] Shae Dinh MD Longstanding persistent atrial fibrillation (CMS/HCC) 04/09/2025 Telephone [facility] - [address] [facility] 102 [address] [facility] [address] [place] [address] Bhumi Jaeger MD NURSE ASSESSMENT 04/09/2025 Telephone [facility] - [address] [facility] 102 [address] [facility] [address] [place] [address] Bhumi Jaeger MD Medication Question (Warfarin) 04/09/2025 Orders Only [facility] - [address] [address] [place] [address] Bhumi Jaeger MD 04/08/2025 Telephone [facility] - [address] [address] [place] [address] Bhumi Jaeger MD Needs Orders Written 04/08/2025 Chart Note [facility] [address] [facility] [address] [place] [address] Cyndie Sanches 04/08/2025 Telephone [facility] - [address] [facility] [address] [place] [address] Shae Dinh MD message 04/07/2025 Telephone [facility] - [address] [facility] [address] [place] [address] Shae Dinh MD Abnormal Imaging Results 04/06/2025 7:48 AM CDT - 04/06/2025 11:59 PM CDT Hospital Encounter [facility] [address] [place] [address] Shae Dinh MD Discharge Disposition: Home or Self Care 04/06/2025 Telephone [facility] - [address] [facility] [address] [place] [address] Shae Dinh MD Imaging Results 04/05/2025 Orders Only [facility] [address] [facility] [address] [place] [address] Shae Dinh MD Longstanding persistent atrial fibrillation (CMS/HCC) from Last 3 Months Immunizations Immunization Administration [...] Pulse 79 07/05/2025 10:54 AM CDT Temperature 36.4 C (97.5 F) 07/02/2025 2:36 PM CDT Respiratory Rate 16 07/02/2025 2:36 PM CDT Oxygen Saturation 100% 07/02/2025 2:36 PM CDT Inhaled Oxygen Concentration - - Weight 83.5 kg (184 lb) 07/01/2025 8:37 AM CDT Height 190.5 cm (6' 3) 07/01/2025 8:37 AM CDT Body Mass Index 23 07/01/2025 8:37 AM CDT Plan of Treatment Upcoming Encounters Date Type Department Care Team (Late st Contact Info) Description 07/09/2025 10:30 AM CDT [facility] [address] [place] [address] [place] [address] [address] [facility] [address] [place] [address] [facility] 07/09/2025 11:00 AM CDT Office Visit [facility] [address] [address] [facility] [address] [place] [address] Sara Arteagaorah, OSTEOPATHIC NEUROLOGIST [address] [place] [address] 07/12/2025 2:45 PM CDT Office Visit [facility] [address] [facility] [address] [facility] [address] [place] [address] [place] [address] [facility] 300 [place], [place] [address] 07/29/2025 8:45 AM CDT Office Visit [facility] [address] [address] [facility] [address] [place] [address] [place] [address] [facility] [address] [place] [address] 07/29/2025 9:00 AM CDT Appointment [facility] Infusion Services [facility] [address] [place] [address] [place] [address] [facility] [address] [place] [address] [facility], Chair # 9 Infusion [facility] Health Maintenance Due Date Last Done Comments DIABETES ANNUAL FOOT EXAM 1972 DIABETES MICROALBUMIN ANNUAL SCREEN 1972 FIT-DNA Q 3 years 1999 FIT/FOBT Q 1 year 1999 Flex Sig/CT Colonography Q 5 years 1999 RSV VACCINE (60+ or ) (1 - Risk 60-74 years 1-dose series) 2014 ZOSTER VACCINE (1 of 2) 06/22/2015 04/27/2015 PNEUMOCOCCAL VACCINE 50+ YEA RS [...] 08/27/2019, 04/27/2015 Medical Devices Implanted Type Area Filenet Admin Device Identifier Shelf Expiration Date Model / Serial / Lot Mesh Lap Film Progrip Slf Lp [id number] - Sna Implanted:Qty : 1 on 04/24/2019 by Erik Garvin DO at [facility] Right: Abdomen [employer] - COVIDIEN 07/13/2021 [id number] / NA / [id number] Description:REQ [id number] [employer] Clearvue Slim 8fr [id number] - [id number] Implanted:Qty : 1 on 06/24/2025 by Daron Peguero MD at [facility] Right: Chest Wall BARD KWAKU VASC [id number] 08/13/2026 [id number] / / [id number] Procedures Procedure Name Priority Date/Time Associated Diagnosis Comments POC URINALYSIS DIPSTICK AUTOMATED Routine 07/05/2025 11:10 AM CDT Prostate cancer (CMS/HCC) COMPREHENSIVE METABOLIC PANEL Stat 07/01/2025 8:24 AM CDT Malignant lymphoma, follicular center cell (CMS/HCC) CBC WITH DIFFERENTIAL Stat 07/01/2025 8:24 AM CDT Malignant lymphoma, follicular center cell (CMS/HCC) MAGNESIUM LEVEL Routine 07/01/2025 8:24 AM CDT Malignant lymphoma, follicular center cell (CMS/HCC) Mediastinal mass Hodgkin lymphoma of intra-abdominal lymph nodes, unspecified Hodgkin lymphoma type (CMS/HCC) HEPATITIS B CORE AB TOTAL Routine 07/01/2025 8:23 AM CDT Malignant lymphoma, follicular center cell (CMS/HCC) HEPATITIS B SURFACE ANTIGEN Routine 07/01/2025 8:23 AM CDT Malignant lymphoma, follicular center cell (CMS/HCC) HEPATITIS B SURFACE AB, QUAL Routine 07/01/2025 8:23 AM CDT Malignant lymphoma, follicular center cell (CMS/HCC) PROTIME-INR Routine 06/30/2025 2:17 PM CDT Longstanding persistent atrial fibrillation (CMS/HCC) IR VENOUS ACCESS Stat 06/24/2025 8:24 AM CDT Malignant lymphoma, follicular center cell (CMS/HCC) Mediastinal mass PROTIME-INR Routine 06/21/2025 2:32 PM CDT POC PROTIME/INR Routine 06/21/2025 POC URINALYSIS DIPSTICK AUTOMATED Routine 06/11/2025 1:02 PM CDT Elevated PSA IR BIOPSY Stat 06/01/2025 1:07 PM CDT CYTOLOGY, NON GYNE Pathology 06/01/2025 12:34 PM CDT PROTIME-INR Stat 06/01/2025 11:38 AM CDT PET TUMOR OR INFECTION IMG W CT SKB MDTH Stat 05/28/2025 12:45 PM CDT Abnormal findings on diagnostic imaging of other abdominal regions, including retroperitoneum POC GLUCOSE Routine 05/28/2025 11:07 AM CDT IMMUNOFIXATION Routine 05/26/2025 3:10 PM CDT PSA Stat 05/26/2025 3:10 PM CDT History of prostate cancer CBC WITH DIFFERENTIAL Routine 05/26/2025 3:10 PM CDT Palpable abdominal mass PROTEIN ELECTROPHORESIS W/REFLEX,SERUM Routine 05/26/2025 3:10 PM CDT Palpable abdominal mass IMMUNOGLOBULINS IGG IGA IGM Routine 05/26/2025 3:10 PM CDT Palpable abdominal mass LACTATE DEHYDROGENASE Routine 05/26/2025 3:10 PM CDT Palpable abdominal mass COMPREHENSIVE METABOLIC PANEL Routine 05/26/2025 3:10 PM CDT Palpable abdominal mass IGG SUBCLASSES Routine 04/30/2025 1:01 PM CDT Lymphadenopathy Intraabdominal mass UPPER ENDOSCOPIC ULTRASOUND REPORT 04/29/2025 11:16 AM CDT CYTOLOGY, NON GYNE Pathology 04/29/2025 10:23 AM CDT Lymphadenopathy Intraabdominal mass HI EDG US EXAM SURGICAL ALTER STOM DUODENUM/JEJUNUM 04/29/2025 9:30 AM CDT Lymphadenopathy Intraabdominal mass Case Notes running late- arriving at 9 Warfarin [address] ABDOMEN PELVIS W CONTRAST Routine 04/06/2025 8:40 AM CDT Abdominal mass, unspecified abdominal location Mediastinal mass Palpable abdominal mass POC CREATININE Routine 04/06/2025 8:24 AM CDT LIPID PANEL Routine 01/07/2025 11:18 AM CDT Coronary artery disease involving qagan tayagungin coronary artery of qagan tayagungin heart without angina pectoris Longstanding persistent atrial fibrillation (CMS/HCC) Dyslipidemia Dyspnea on exertion Aneurysm of ascending aorta without rupture HM DIABETES EYE EXAM Routine 11/04/2019 HEMOGLOBIN A1C Routine 08/27/2019 11:12 AM DIRECTOR OF INFECTION CONTROL Type 2 diabetes mellitus without complication, without long-term current use of insulin (CMS/HCC) ENDOSCOPY, COLON, SCREENING Routine 03/31/2018 from Last 3 Months or Most Recently Relevant to Health Maintenance Results * (ABNORMAL) POC URINALYSIS DIPSTICK AUTOMATED (07/05/2025 11:10 AM CDT) Only the most recent of2 resultswithin the time period is included. COLOR UA POC Yellow Pale to Dark Yellow [facility] CLARITY UA POC Clear Clear, Other [facility] GLUCOSE UA POC 3+(A) Negative, Normal [facility] BILIRUBIN UA POC Negative Negative [facility] KETONES UA POC Negative Negative [facility] SPECIFIC GRAVITY UA POC 1.015 1.000 - 1.030 [facility] BLOOD UA POC Trace(A) Negative [facility] PH UA POC 7.0 5.0 - 8.0 [facility] PROTEIN UA POC 1+(A) Negative [facility] UROBILINOGEN UA POC 0.2 <2.0 mg/dL [facility] NITRITE UA POC Negative Negative [facility] LEUKOCYTE ESTERASE UA POC Negative Negative [facility] KIT LOT NUMBER POC [phone] [facility] KIT EXP DATE POC 06/13/2026 [facility] Urine 07/05/2025 11:1 0 AM CDT us Arnulfo Son MD POINT OF CARE TESTING Final R esult [facility] CL[facility] [id number] [place] [address] * (ABNORMAL) CBC WITH DIFFERENTIAL (07/01/2025 8:24 AM CDT) Only the most recent of2 resultswithin the time period is included. WBC 7.9 4.5 - 10.5 K/uL 07/01/2025 8:39 AM CDT [facility] SINDELAR RBC 4.18(L) 4.50 - 5.40 M/uL 07/01/2025 8:39 AM CDT [facility] HEMOGLOBIN 12.5(L) 13.6 - 16.5 g/dL 07/01/2025 8:39 AM CDT [facility] H[facility] 34.5(L) 40.0 - 48.0 % 07/01/2025 8:39 AM CDT [facility] MCV 82.5 82.0 - 99.0 fL 07/01/2025 8:39 AM CDT [facility] MCH 30.0 27.8 - 34.5 pg 07/01/2025 8:39 AM CDT [facility] MCHC 36.3(H) 32.5 - 35.5 g/dL 07/01/2025 8:39 AM CDT [facility] RDW 14.7(H) 11.5 - 14.5 % 07/01/2025 8:39 AM CDT [facility] PLATELETS 153(L) 160 - 420 K/uL 07/01/2025 8:39 AM CDT [facility] MPV 9.0 8.7 - 12.7 fL 07/01/2025 8:39 AM CDT [facility] NEUTROPHILS 72 % 07/01/2025 8:39 AM CDT [facility] LYMPHOCYTES 12 % 07/01/2025 8:39 AM CDT [facility] MONOCYTES 10 % 07/01/2025 8:39 AM CDT [facility] EOSINOPHILS 5 % 07/01/2025 8:39 AM CDT [facility] BASOPHILS 1 % 07/01/2025 8:39 AM CDT [facility] NEUTROPHIL ABSOLUTE 5.70 1.90 - 7.00 K/uL 07/01/2025 8:39 AM CDT [facility] LYMPHOCYTE ABSOLUTE 1.00 0.70 - 4.50 K/uL 07/01/2025 8:39 AM CDT [facility] MONOCYTE ABSOLUTE 0.80 0.10 - 1.30 K/uL 07/01/2025 8:39 AM CDT [facility] [place] EOSINOPHIL ABSOLUTE 0.40 0.00 - 0.70 K/uL 07/01/2025 8:39 AM CDT [facility] BASOPHILS ABSOLUTE 0.00 0.00 - 0.20 K/uL 07/01/2025 8:39 AM CDT [facility] Blood Collection / Unknown 07/01/2025 8:24 AM CDT 07/01/2025 8:32 AM CDT Parth Robert MD HEMATOLOGY ORDERABLES Final Resu lt [facility] CLIA#[id number] [place] [address] * MAGNESIUM LEVEL (07/01/2025 8:24 AM CDT) MAGNESIUM 2.1 1.5 - 2.5 mg/dL [facility] Comment: Test Performed at: [place] [address] [place] [address] Ankur Paniagua Blood 07/01/2025 8:24 AM CDT 07/01/2025 8:34 AM CDT us Candy HAIR CHEMISTRY ORDERABLES Final R esult [facility] [phone] [place] [address] [place] [address] * (ABNORMAL) COMPREHENSIVE METABOLIC PANEL (07/01/2025 8:24 AM CDT) Only the most recent of2 resultswithin the time period is included. Pathologist [facility] SODIUM 147(H) 136 - 145 mmol/L 07/01/2025 9:13 AM [facility] POTASSIUM 3.4 3.4 - 5.1 mmol/L 07/01/2025 9:13 AM [facility] CHLORIDE 107 98 - 107 mmol/L 07/01/2025 9:13 AM [facility] CO2 26 22 - 29 mmol/L 07/01/2025 9:13 AM [facility] CALCIUM 9.9 8.6 - 10.4 mg/dL 07/01/2025 9:13 AM [facility] BUN 28(H) 6 - 20 mg/dL 07/01/2025 9:13 AM [facility] CREATININE 1.85(H) 0.67 - 1.17 mg/dL 07/01/2025 9:13 AM [facility] Comment:The GFR result is no t clinically significant on patients <18 or >70 years of age. GLUCOSE 117(H) 74 - 99 mg/dL 07/01/2025 9:13 AM [facility] TOTAL PROTEIN 6.6 6.3 - 8.7 g/dL 07/01/2025 9:13 AM [facility] ALBUMIN 4.5 3.5 - 5.2 g/dL 07/01/2025 9:13 AM [facility] BILIRUBIN TOTAL 0.8 0.0 - 1.1 mg/dL 07/01/2025 9:13 AM [facility] ALKALINE PHOSPHATASE 74 40 - 150 U/L 07/01/2025 9:13 AM [facility] AST 30 0 - 41 U/L 07/01/2025 9:13 AM [facility] ALT 26 0 - 41 U/L 07/01/2025 9:13 AM [facility] GFR 38 mL/min/1.7 3 sq meter 07/01/2025 9:13 AM [facility] Comment:eGFR calculated with 2020 CKD-EPI equation. Vegetarian diet, extremely high or low muscle mass, and may affect results. Cystatin C with Glomerular Filtration Rate is a suitable alternative for these patients. ANION GAP 14 8 - 16 mmol/L 07/01/2025 9:13 AM CDT [facility] Blood Collection / Unknown 07/01/2025 8:24 AM CDT 07/01/2025 8:32 AM CDT Parth Robert MD CHEMISTRY ORDERABLES Final Resul t Performing Organization Address City/[facility] Co de Phone Number [facility] CLIA# [id number] [place] [address] * HEPATITIS B CORE AB TOTAL (07/01/2025 8:23 AM CDT) HEPATITIS B CORE AB NON-REACTI VE NON-REACTI VE [facility] Comment: For additional information, please refer to http://education.KeyCAPTCHA/faq/OTM962 (This link is being provided for informational/ educational purposes only.) Test Performed at: [facility] [address] [facility] [place] [address] Ankur Paniagua MD Blood 07/01/2025 8:23 AM CDT 07/01/2025 8:35 AM CDT Parth Robert MD CHEMISTRY ORDERABLES Final Resul t Performing Organization Address City/[facility]/ZIP Co de Phone Number [facility] [phone] [facility] [address] [facility] [place] [address] * HEPATITIS B SURFACE AB, QUAL (07/01/2025 8:23 AM CDT) HEPATITIS B SURFACE AB, QUAL NON-REACTI VE NON-REACTI VE [facility] Comment: Test Performed at: [facility] [address] [place] [address] Ankur Paniagua MD Blood 07/01/2025 8:23 AM CDT 07/01/2025 8:35 AM CDT Parth Robert MD CHEMISTRY ORDERABLES Final Resul t Performing Organization Address [facility] de Phone Number [facility] [phone] [facility] [address] [place] [address] * HEPATITIS B SURFACE ANTIGEN (07/01/2025 8:23 AM CDT) Pathologist [facility] HEPATITIS B SURFACE AG NON-REACTI VE NON-REACTI VE [facility] Comment: For additional information, please refer to http://SoftArt.KeyCAPTCHA/faq/KSY971 (This link is being provided for informational/ educational purposes only.) Test Performed at: [facility] [address] [place] [address] Ankur Paniagua MD Blood 07/01/2025 8:23 AM CDT 07/01/2025 8:35 AM CDT Parth Robert MD CHEMISTRY ORDERABLES Final Resul t Performing Organization Address [facility] de Phone Number [facility] [phone] [facility] [address] [place] [address] * (ABNORMAL) PROTIME-INR (06/30/2025 2:17 PM CDT) Only the most recent of3 resultswithin the time period is included. Pathologist [facility] INR 1.4(H) [facility] Comment: Reference Range 0.9-1.1 Moderate-intensity Warfarin Therapy 2.0-3.0 Higher-intensity Warfarin Therapy 3.0-4.0 PROTIME 15.2(H) 9.0 - 11.5 sec [facility] Comment: For additional information, please refer to http://education.KeyCAPTCHA/faq/VXX888 (This link is being provided for informational/ educational purposes only.) Test Performed at: [place] [address] [address] Ankur Paniagua Blood 06/30/2025 2:17 PM CDT 06/30/2025 2:17 PM CDT us Ben Aceves MD HEMATOLOGY ORDERABLES Final R esult [facility] [phone] [place] [address] [address] * IR VENOUS ACCESS (06/24/2025 8:24 AM CDT) Anatomical Region Laterality Modality X-Ray Angiograph y 06/24/2025 7:01 AM CDT Impressions 06/24/2025 8:42 AM CDT IMPRESSION: Successful insertion of a right internal jugular venous power injectable low profile chest port with an 8 Kenyan catheter. DICTATION LOCATION: Location [address] [place] [address] Narrative 06/24/2025 8:42 AM CDT POWER INJECTABLE LOW PROFILE CHEST PORT DATE: 06/24/2025 8:24 AM HISTORY: Malignant lymphoma, follicular center cell (CMS/HCC); Mediastinal mass COMPARISON: No prior studies are available for comparison. ATTENDING RADIOLOGIST: Daron Peguero MD DESCRIPTION OF PROCEDURE: Informed consent with obtained, including a detailed description of the risks and benefits of chest port placement including infection. The patient understood the risks and benefits of the procedure and was given a chance to ask questions prior to the procedure. 2 g of Ancef were administered intravenously preoperatively. A time out was performed. Moderate sedation was administered for 36 minutes under the supervision of Dr. Peguero and continuous vital sign monitoring by a Registered Nurse with intravenous Versed 4.0 mg and Fentanyl 200 mcg following the appropriate protocol for conscious sedation. 1% Lidocaine was used as local anesthesia at the venous access site, and 1% Lidocaine with epinephrine was administered subcutaneously in the chest and soft tissue for performance of tunneling the catheter. Ultrasound evaluation of the right neck showed a patent right internal jugular vein, which was punctured directly under direct real time ultrasound guidance with permanent image recording in PACS. Utilizing ultrasound guidance with direct real time visualization and a micropuncture needle, the right internal jugular vein was percutaneously entered and a guidewire easily advanced into the superior vena cava. The guidewire was removed and the microcatheter sheath flushed and capped with a flow switch. The site was then chosen for placement of the micro chest port. Following subcutaneous administration of 1% Lidocaine with epinephrine, an incision was made using a #15 blade and pocket created for the chest port with blunt dissection. Following this, a flexible tunneler was used to create a tract from the chest port pocket to the site of vein access. At this location, a second incision was made and blunt dissection again performed to create a pocket for the curve of the catheter. A curved J tipped wire was then inserted via the right internal jugular vein catheter and successive dilatation performed to 8 Kenyan. A 9 Kenyan introducer sheath was then inserted over wire into the vein under fluoroscopic guidance. The catheter was pulled through the chest tract with the tunneler. The chest port catheter was subsequently inserted via the introducer sheath with care to prevent air embolism. After positioning the catheter tip using fluoroscopic guidance in the right atrium, the catheter was cut to the appropriate length and attached to the low profile chest port. The chest port was inserted into the pocket which had been created earlier and secured to the chest wall fascia using 3-0 nylon at opposing ends of the catheter. The chest incision was then closed with 4-0 Vicryl subcuticular suture sa well as Dermabond used at both the incisions. The wounds were cleaned and dried and sterile dressing applied. The catheter hub was then accessed, blood was easily aspirated and the catheter flushed. A final image was obtained documenting the catheter hub position with a gentle curve of the catheter. The fluoroscopy time was 0.6 minutes with an estimated reference air kerma dose of 4.0 mGy. FINDINGS: An 8 Kenyan right internal jugular venous power injectable low profile chest port and catheter are appropriately positioned with the tip in the right atrium. The catheter length is 26 cm. INCIDENTAL FINDINGS: None. Procedure Note Daron Peguero MD - 06/24/2025 POWER INJECTABLE LOW PROFILE CHEST PORT DATE: 06/24/2025 8:24 AM HISTORY: Malignant lymphoma, follicular center cell (CMS/HCC); Mediastinal mass COMPARISON: No prior studies are available for comparison. ATTENDING RADIOLOGIST: Daron Peguero MD DESCRIPTION OF PROCEDURE: Informed consent with obtained, including a detailed description of the risks and benefits of chest port placement including infection. The patient understood the risks and benefits of the procedure and was given a chance to ask questions prior to the procedure. 2 g of Ancef were administered intravenously preoperatively. A time out was performed. Moderate sedation was administered for 36 minutes under the supervision of Dr. Peguero and continuous vital sign monitoring by a Registered Nurse with intravenous Versed 4.0 mg and Fentanyl 200 mcg following the appropriate protocol for conscious sedation. 1% Lidocaine was used as local anesthesia at the venous access site, and 1% Lidocaine with epinephrine was administered subcutaneously in the chest and soft tissue for performance of tunneling the catheter. Ultrasound evaluation of the right neck showed a patent right internal jugular vein, which was punctured directly under direct real time ultrasound guidance with permanent image recording in PACS. Utilizing ultrasound guidance with direct real time visualization and a micropuncture needle, the right internal jugular vein was percutaneously entered and a guidewire easily advanced into the superior vena cava. The guidewire was removed and the microcatheter sheath flushed and capped with a flow switch. The site was then chosen for placement of the micro chest port. Following subcutaneous administration of 1% Lidocaine with epinephrine, an incision was made using a #15 blade and pocket created for the chest port with blunt dissection. Following this, a flexible tunneler was used to create a tract from the chest port pocket to the site of vein access. At this location, a second incision was made and blunt dissection again performed to create a pocket for the curve of the catheter. A curved J tipped wire was then inserted via the right internal jugular vein catheter and successive dilatation performed to 8 Kenyan. A 9 Kenyan introducer sheath was then inserted over wire into the vein under fluoroscopic guidance. The catheter was pulled through the chest tract with the tunneler. The chest port catheter was subsequently inserted via the introducer sheath with care to prevent air embolism. After positioning the catheter tip using fluoroscopic guidance in the right atrium, the catheter was cut to the appropriate length and attached to the low profile chest port. The chest port was inserted into the pocket which had been created earlier and secured to the chest wall fascia using 3-0 nylon at opposing ends of the catheter. The chest incision was then closed with 4-0 Vicryl subcuticular suture sa well as Dermabond used at both the incisions. The wounds were cleaned and dried and sterile dressing applied. The catheter hub was then accessed, blood was easily aspirated and the catheter flushed. A final image was obtained documenting the catheter hub position with a gentle curve of the catheter. The fluoroscopy time was 0.6 minutes with an estimated reference air kerma dose of 4.0 mGy. FINDINGS: An 8 Kenyan right internal jugular venous power injectable low profile chest port and catheter are appropriately positioned with the tip in the right atrium. The catheter length is 26 cm. INCIDENTAL FINDINGS: None. IMPRESSION: Successful insertion of a right internal jugular venous power injectable low profile chest port with an 8 Kenyan catheter. DICTATION LOCATION: Location [address] [place] [address] Result [facility] Candy Arteaga OSTEOPATHIC NEUROLOGIST IR ORDERABLES Final Result * POC PROTIME/INR (06/21/2025) ABSTRACTED INR 1.6 Blood, capillary Ben Acevse MD POINT OF CARE TESTING Final R esult * IR BIOPSY (06/01/2025 1:07 PM CDT) Anatomical Region Laterality Modality X-Ray Angiograph y 06/01/2025 12:0 8 PM CDT Impressions 06/01/2025 1:22 PM CDT IMPRESSION: Status post CT-guided needle biopsy of a right retroperitoneal mass. DICTATION LOCATION: [address] Narrative 06/01/2025 1:[address] GUIDANCE FOR TISSUE BIOPSY OF A RETROPERITONEAL MASS DATE: 06/01/2025 HISTORY: Retroperitoneal mass, history of prostate cancer COMPARISON: 05/28/2025 ATTENDING RADIOLOGIST: Daron Mcqueen MD DESCRIPTION OF PROCEDURE: Informed consent was obtained, including a detailed explanation of the risks and benefits of a CT guided biopsy. The patient or person providing consent understood the risks and was given an opportunity to ask questions. The patient was placed on the CT table in the prone position and the designated site was prepped with 2% chlorhexidine and draped in sterile fashion. Sterile gowns and gloves and personal protection devices were employed. A timeout was performed. 1% Lidocaine was used for local skin anesthesia. Under CT guidance, a coaxial needle was advanced into the retroperitoneal mass. One fine-needle aspirates and four core samples were obtained. The coaxial needle was removed and a follow up exam was performed. A sterile dressing was applied. The patient was discharged from Interventional Radiology in stable condition without complications. Moderate sedation was administered for 33 minutes under the supervision of Dr. Peguero and continuous vital sign monitoring by a Registered Nurse with intravenous Versed 4.0 mg and Fentanyl [address] dose report for the procedure is total DLP: 713.29 mGy-cm. FINDINGS: Preliminary exam again demonstrates the right retroperitoneal mass. Scattered prominent mesenteric lymph nodes are present. Subsequent imaging demonstrates advancement of the coaxial needle into the retroperitoneal mass. Following removal of the needle, follow-up imaging demonstrates no radiographic evidence of a hemorrhage. INCIDENTAL FINDINGS: None. Procedure Note Daron Peguero MD - 06/01/2025 CT GUIDANCE FOR TISSUE BIOPSY OF A RETROPERITONEAL MASS DATE: 06/01/2025 HISTORY: Retroperitoneal mass, history of prostate cancer COMPARISON: 05/28/2025 ATTENDING RADIOLOGIST: Daron Mcqueen MD DESCRIPTION OF PROCEDURE: Informed consent was obtained, including a detailed explanation of the risks and benefits of a CT guided biopsy. The patient or person providing consent understood the risks and was given an opportunity to ask questions. The patient was placed on the CT table in the prone position and the designated site was prepped with 2% chlorhexidine and draped in sterile fashion. Sterile gowns and gloves and personal protection devices were employed. A timeout was performed. 1% Lidocaine was used for local skin anesthesia. Under CT guidance, a coaxial needle was advanced into the retroperitoneal mass. One fine-needle aspirates and four core samples were obtained. The coaxial needle was removed and a follow up exam was performed. A sterile dressing was applied. The patient was discharged from Interventional Radiology in stable condition without complications. Moderate sedation was administered for 33 minutes under the supervision of Dr. Peguero and continuous vital sign monitoring by a Registered Nurse with intravenous Versed 4.0 mg and Fentanyl [address] dose report for the procedure is total DLP: 713.29 mGy-cm. FINDINGS: Preliminary exam again demonstrates the right retroperitoneal mass. Scattered prominent mesenteric lymph nodes are present. Subsequent imaging demonstrates advancement of the coaxial needle into the retroperitoneal mass. Following removal of the needle, follow-up imaging demonstrates no radiographic evidence of a hemorrhage. INCIDENTAL FINDINGS: None. IMPRESSION: Status post CT-guided needle biopsy of a right retroperitoneal mass. DICTATION LOCATION: Location - [facility] Parth Robert MD IR ORDERABLES Final Result * CYTOLOGY, NON GYNE (06/01/2025 12:34 PM CDT) Only the most recent of2 resultswithin the time period is included. CASE REPORT Medical Cytology Report Case: [id number] Authorizing Provider: Parth Robert MD Collected: 06/01/2025 12:34 PM Ordering Location: [facility] IR Received: 06/01/2025 01:50 PM Pre Post Recovery Specimens: A) - Other, specify, retroperitoneal mass biopsy B) - Other, specify, Retroperitoneal mass 3:29 PM CDT [facility] ADDENDUM 2 High-grade B-cell lymphoma FISH analysis (performed at [facility]) demonstrated the presence of t(14;18) IGH/BCL2 genes rearrangement and showed no evidence of MYC or BCL6 gene rearrangements (see scanned report for details). These results rule out the possibility of high-grade B-cell lymphoma and are compatible with follicular lymphoma. 3:29 PM CDT [facility] Addendum electronically signed by Rahel Burnette MD on 06/17/2025 at 1528 CDT ADDENDUM 1 The flow specimen wa s insufficient for testing and accordingly the tissue block will be sent for analysis and the results will be reported in an addendum. See scanned report. 3:29 PM CDT [facility] Addendum electronically signed by Rahel Burnette MD on 06/08/2025 at 1525 CDT FINAL DIAGNOSIS Lymph node, retroperitoneal, fine-needle aspiration and core biopsies - B-cell non-Hodgkin lymphoma, best classified as follicular lymphoma, WHO grade 2 - See microscopic 3:29 PM T [facility] at 1617 CDT DIAGNOSIS COMMENT FISH analysis for t(14;18) and MYC gene rearrangement is pending and the results will be reported in an addendum. 5 3:29 PM T [facility] GROSS DESCRIPTION The specimen is an FNA of the retroperitoneal lymph node performed in Radiology, under CT guidance, and received directly for immediate assessment of adequacy. 1 pass is made yielding 2 slides, 1 of which was stained for immediate interpretation. The intraoperative consult diagnosis is given to Dr. Peguero by Dr. Ashraf. The remaining slide is fixed and Pap-stained. (A1). A scheduling representative sample is combined with RPMI and sent for flow cytometry. 4 cores are obtained, 1.0 to 1.7 cm. The cores are submitted in B1 and B2. 5 3:29 PM T [facility] MICROSCOPIC DESCRIPTION This material was obtained for extended lymphoma workup, requiring combined flow cytometry, immunohistochemistry and ancillary studies. Slides show multiple cores of a lymph node with effaced architecture by atypical lymphoid infiltrate and fibrosis/sclerosis. The atypical infiltrate consists predominantly of small mature appearing lymphocytes with irregular nuclear contours (centrocytes like). Rare scattered larger lymphocytes with centroblasts like morphology are noted. There is no evidence of large cell transformation or necrosis and no definite Chapo-Eric cells are identified. Immunostains are performed. Some are duplicated from flow cytometry to assess the architecture, and confirm the phenotype. CD20 highlights the vast majority of the atypical lymphocytes. The atypical B-cells coexpress CD10, BCL2 and BCL6 and are negative for CD5, cyclin D1 and CD30. CD23 highlights few disrupted and expanded follicular dendritic meshworks. CD3 highlights the background small T-cells. Ki-67 shows a variable proliferation index, ranging from 5 up to 40%. CD138 highlights very rare plasma cells. Pancytokeratin shows no evidence of metastatic carcinoma (negative). Flow cytometry: Flow cytometric analysis shows mildly hypocellular specimen with approximately 34% viability. Lymphocytes constitute approximately 63% of the analyzed events, of which approximately 40% are monotypic surface lambda light chain (bright) restricted B-cells that are positive for CD19, CD20, CD10 and CD23 and are negative for CD5 and CD11c. The T-cells (57%) show no immunophenotypic abnormality and a CD4 to CD8 ratio of 7.8. Flow cytometry data: [facility] Total viability: 34.1% Analyzed markers (17): CD2, CD3, CD4, CD5, CD7, CD8, CD10, CD11c, CD19, CD20, CD23, CD34, CD38, CD45, CD56, [place], Lambda 5 3:29 PM CDT [facility] IMMEDIATE ASSESSMENT Lymph node, retroperitoneal, CT guided & core bx: Pass 1 = Inadequate TP = Adequate Dr. Ashraf 5 3:29 PM T [facility] CLINICAL INFORMATION CYTOLOGY (FNA) No Dx found. 5 3:29 PM [facility] COMMENT Immunohistochemical stains were performed, if any, and interpreted at [facility] ([facility]) Laboratory with appropriately staining controls. This test was developed and its performance characteristics determined by [facility] Lab. It has not been cleared or approved by the Food and Drug Administration. The FDA does not require this test to go through premarket FDA review. This test is used for clinical purposes, and should not be regarded as investigational or for research. This lab is certified under CLIA to perform high complexity testing. Estrogen and progesterone receptor staining has not been validated in our lab on decalcified tissue; decalcification may decrease immunoreactivity for these and other antigens. The performance characteristics of flow cytometry tests cited in this report (if any) were determined at [facility], as part of an ongoing quality tech program and in compliance with federally mandated regulations drawn from the Clinical Laboratory Improvement Amendments of 1988 (CLIA ' 88). Some of these tests rely on the use of analyte specific reagents and are subject to specific labeling requirements by the US Food and Drug Administration. Such diagnostic tests may only be performed in a facility that is certified by the Health Care Financing Administration as a high complexity laboratory under CLIA ' 88. These tests need not be cleared or approved by the FDA prior to their use. Nevertheless, federal rules concerning the medical use of analyte specific reagents require that the following disclaimer be attached to the report: This test was developed and its performance characteristics determined by [employer]. It has not been cleared or approved by the US Food and Drug Administration 3:29 PM CDT [facility] Body fluid (Other, specify) Collection / Unknown 06/01/2025 12:34 PM CDT 06/01/2025 1:50 PM CDT Comment:CYTOLOGY (FNA) Body fluid specimen (specimen) (Other, specify) Collection / Unknown 06/01/2025 12:34 PM CDT 06/01/2025 1:50 PM CDT Parth Robert MD PATHOLOGY/CYTOLOGY ORDERABLES Ed ited Result - Final [facility] CLIA# [id number] [address] [place] [address] * PET TUMOR OR INFECTION IMG W CT SKB MDTH (05/28/2025 12:45 PM CDT) Anatomical Region Laterality Modality Positron Emissio n Tomography (PET) 05/28/2025 12:4 7 PM CDT Impressions 05/28/2025 1:00 PM CDT IMPRESSION: 1. Hypermetabolic posterior mediastinal mass and conglomerate lymphadenopathy in the retroperitoneum, concerning for malignancy. 2. Hypermetabolic masslike appearance of the distal duodenal/proximal jejunum, consistent with intramural hematoma. Short interval follow-up is recommended. DICTATION LOCATION: Location [address] [place] [address] A [facility] Priority Outpt message has been communicated to PARTH ROBERT via the [employer] Critical Results application on 05/28/2025 12:57 PM, Message ID [id number]. Narrative 05/28/2025 1:00 PM CDT EXAMINATION: FDG PET-CT HISTORY: Abdominal mass. Initial staging. PROCEDURE: Following IV injection of 12-ltihwy-6-deoxyglucose (FDG) and a standard uptake period, a noncontrast CT scan followed by a PET scan were acquired from the skull base to the mid thighs. The noncontrast low-dose CT was used for anatomic localization and photon attenuation correction of the PET scan. Serum glucose was 103 mg/dL. FDG DOSE: 9.06 mCi F 18 FDG via right forearm IV. TIME FROM INJECTION TO IMAGIN minutes. Liver SUV: 2.2 Mediastinum SUV: 1.8 Height: 6 feet 3 inches. Weight: 188 pounds. CORRELATIVE STUDIES: 04/06/2025 FINDINGS: PET: Head/Neck: No abnormal hypermetabolic foci are identified in the head and neck. Chest: Posterior mediastinal mass along the anterior aspect of the thoracic spine is present with marked FDG uptake and maximum SUV of 10.9. Retroperitoneal mass is present with maximum SUV of approximately 7.4. Abdomen/Pelvis: No abnormal hypermetabolic foci are identified in the abdomen and pelvis. Skeleton: No abnormal hypermetabolic foci are identified in the skeletal system. CT findings: The low-dose CT scans performed for anatomic correlation and attenuation correction were reviewed. There are severe coronary artery calcifications. Carotid artery atherosclerosis is present. 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 The heart is enlarged. High-density masslike structure of the distal duodenum (image 27) measures approximately 4.0 x 4.4 cm. This demonstrates no FDG uptake. This is new from the prior examination. Parth Robert MD PE ORDERABLES Edited Result - Final * (ABNORMAL) POC GLUCOSE (05/28/2025 11:07 AM CDT) GLUCOSE POC 103(H) 74 - 99 mg/dL 05/28/2025 11:07 AM CDT [facility] SPECIMEN SOURCE, GLUCOSE POC Whole Blood 05/28/2025 11:07 AM CDT [facility] Blood, whole 05/28/2025 11:0 7 AM CDT 05/28/2025 11:24 AM CDT Parth Robert MD POINT OF CARE TESTING Final Resu lt [facility] CLIA#[id number] [address] [place] [address] * IMMUNOFIXATION (05/26/2025 3:10 PM CDT) [facility] IMMUNOFIXATION INTERP [facility] Comment: IgM lambda monoclonal band present. Test Performed at: [facility] [place] [address] Ankur Paniagua MD 05/26/2025 3:10 PM CDT 05/26/2025 3:16 PM CDT Parth Robert MD CHEMISTRY ORDERABLES Final Resul t Performing Organization Address [facility] Co de Phone Number [facility] [phone] [facility] [address] [place] [address] * (ABNORMAL) IMMUNOGLOBULINS IGG IGA IGM (05/26/2025 3:10 PM CDT) [facility] IGA 39(L) 70 - 320 mg/dL [facility] Comment: Verified by repeat analysis. IGG 640 600 - 1540 mg/dL [facility] IGM 115 50 - 300 mg/dL [facility] Comment: Test Performed at: [facility] [address] [place] [address] Ankur Paniagua MD Blood 05/26/2025 3:10 PM CDT 05/26/2025 3:16 PM CDT Parth Robert MD CHEMISTRY ORDERABLES Final Resul t Performing Organization Address City/[facility]/ZIP Co de Phone Number [facility] [phone] [facility] [address] [place] [phone] * (ABNORMAL) PROTEIN ELECTROPHORESIS W/REFLEX,SERUM (05/26/2025 3:10 PM CDT) [facility] TOTAL PROTEIN 6.6 6.1 - 8.1 g/dL [facility] [place] ALBUMIN SPE 4.4 3.8 - 4.8 g/dL [facility] [place] ALPHA 1 GLOBULIN SPE 0.4(H) 0.2 - 0.3 g/dL [facility] [place] ALPHA 2 GLOBULIN SPE 0.6 0.5 - 0.9 g/dL [facility] [place] Beta 1 Globulin 0.4 0.4 - 0.6 g/dL [facility] [place] Beta 2 Globulin 0.3 0.2 - 0.5 g/dL [facility] [place] GAMMA GLOBULIN 0.6(L) 0.8 - 1.7 g/dL [facility] [place] ABNORMAL PROTEIN BAND SPE 0.1(H) NONE DETECTED g/dL [facility] [place] SPE INTERP [facility] [place] Comment: Poorly defined band (possible M-spike) migrating in the gamma region. Consider serum immunofixation to rule out a monoclonal protein if clinically indicated. Test Performed at: [facility] [place] [address] Ankur Paniagua MD Blood 05/26/2025 3:10 PM CDT 05/26/2025 3:16 PM CDT Parth Robert MD CHEMISTRY ORDERABLES Final Resul t [facility] [phone] [facility] [place] [address] * (ABNORMAL) PSA (05/26/2025 3:10 PM CDT) PSA 19.0(H) <4.0 ng/mL 05/26/2025 9:28 PM CDT [facility] Blood Venipuncture / Unknown 05/26/2025 3:10 PM CDT 05/26/2025 3:15 PM CDT Narrative [facility] - 05/26/2025 9:28 PM CDT The concentration of PSA in a given specimen, as determined by assays from different manufacturers, can vary because of differences in assay methods and reagent specificity. Values obtained with different assay methods cannot be used interchangeably. The testing method in use is the JOSE L Electrochemiluminescence Immunoassay. Parth Robert MD CHEMISTRY ORDERABLES Final Resul t [facility]# [id number] [address] [place] [address] * (ABNORMAL) LACTATE DEHYDROGENASE (05/26/2025 3:10 PM CDT) LD (LACTATE DEHYDROGENASE) 279(H) 120 - 250 U/L [facility] Comment: Test Performed at: [facility] [place] [address] [place] [address] [facility] Blood 05/26/2025 3:10 PM CDT 05/26/2025 3:16 PM CDT Parth Robert MD CHEMISTRY ORDERABLES Final Resul t Performing Organization Address City/[facility]/ZIP Code Phone Number [facility] [phone] [facility] [address] [place] [address] * (ABNORMAL) IGG SUBCLASSES (04/30/2025 1:01 PM CDT) IGG SUBCLASS 1 290(L) 382 - 929 mg/dL [facility] [place] IGG SUBCLASS 2 173(L) 241 - 700 mg/dL [facility] [place] [facility] IGG SUBCLASS 3 37 22 - 178 mg/dL [facility] [place] IGG SUBCLASS 4 5.8 4.0 - 86.0 mg/dL [facility] [place] IGG 521(L) 600 - 1540 mg/dL [facility] [place] Comment: Test Performed at: [facility] [place] [address] [facility] [address] [place] Jose Ospina M.D.,PhD Blood 04/30/2025 1:01 PM CDT 04/30/2025 1:01 PM CDT us Bhumi Jaeger MD CHEMISTRY ORDERABLES Final Resu lt [facility] [phone] [facility] [address] [facility] [place] [address] * UPPER ENDOSCOPIC ULTRASOUND REPORT (04/29/2025 11:16 AM CDT) Narrative Procedure Note Bhumi Jaeger MD - 04/29/2025 11:16 AM CDT [facility] Endoscopy Patient Name: Ilia Sarabia Procedure [...] transduodenal approach. A stylet was used. A seed buyer was present and performed a preliminary cytologic [...] an oncologist. Procedure Code(s): --- Professional --- 98009, Esophagogastroduodenoscopy, flexible, transoral; with transendoscopic ultrasound-guided intramural or transmural fine needle aspiration/biopsy(s), (includes endoscopic ultrasound examination limited to the esophagus, stomach or duodenum, and adjacent structures) CPT copyright 2020 [employer]. All rights reserved. The codes documented in this report are preliminary and upon generation engineer review may be revised to meet current compliance requirements. Bhumi Jaeger MD 04/29/2025 11:16:08 AM This report has been signed electronically. Number of Addenda: [id number] , [place] [address] us Bhumi Jaeger MD GI PROCEDURE ORDERABLES Final R esult * CT ABDOMEN PELVIS W CONTRAST (04/06/2025 8:40 AM CDT) Anatomical Region Laterality Modality Abdomen Computed Tomogra phy 04/06/2025 8:28 AM CDT Addenda Addendum by Juan Chaudhary MD on 04/06/2025 10:52 AM CDT A [facility] Priority Outpt message has been communicated to SHAE DINH via the Lango Critical Results application on 04/06/2025 10:50 AM, Message ID [id number]. Impressions 04/06/2025 10:03 AM CDT IMPRESSION: 1. Enhancing retroperitoneal mass encasing the aorta and inferior vena cava with surrounding fat stranding and prominent mesenteric lymph nodes. Findings are highly concerning for lymphoma. Tissue sampling recommended. Endoscopic ultrasound may be the most direct approach. DICTATION LOCATION: Location 7 [facility] Narrative 04/06/2025 10:03 AM CDT EXAMINATION: CT [...] * (ABNORMAL) POC CREATININE (04/06/2025 8:24 AM CDT) CREATININE POC 1.60(H) 0.60 - 1.30 mg/dL 04/06/2025 8:24 AM CDT [facility] Comment:The GFR result is no t clinically significant on patients <18 or >70 years of age. GFR POC 46 mL/min/1.7 3 sq meter 04/06/2025 8:24 AM CDT [facility] Comment:eGFR calculated with 2020 CKD-EPI equation. Vegetarian diet, extremely high or low muscle mass, and may affect results. Cystatin C with Glomerular Filtration Rate is a suitable alternative for these patients. Blood, whole 04/06/2025 8:24 AM CDT 04/06/2025 8:45 AM CDT Shae Dinh MD POINT OF CARE TESTING Final Result [facility] [id number] [address] [place] [address] * (ABNORMAL) LIPID PANEL (01/07/2025 11:18 AM CDT) CHOLESTEROL 81 <200 mg/dL [facility] HDL 27(L) > OR = 40 mg/dL [facility] TRIGLYCERIDE 60 <150 mg/dL [facility] LDL CALCULATED 40 mg/dL (calc) [facility] Comment: Reference range: <100 Desirable range <100 mg/dL for primary prevention; <70 mg/dL for patients with CHD or diabetic patients with > or = 2 CHD risk factors. LDL-C is now calculated using the Darya calculation, which is a validated novel method providing better accuracy than the Friedewald equation in the estimation of LDL-C. Shantanu FULTON et al. SHALA. 2013;310(95): 8535-7672 (http://education.zePASS/faq/QLD741) CHOL/HDL RATIO 3.0 <5.0 (calc) [facility] NON-HDL CHOLESTEROL 54 <130 mg/dL (calc) [facility] Comment: For patients with diabetes plus 1 major ASCVD risk factor, treating to a non-HDL-C goal of <100 mg/dL (LDL-C of <70 mg/dL) is considered a therapeutic option. Test Performed at: [place] [address] [place] [address] JulyJosé Antonio Vergara Blood 01/07/2025 11:1 8 AM CDT 01/07/2025 11:18 AM CDT Ben Aceves MD CHEMISTRY ORDERABLES Final Re sult Performing Organization Address [facility]/ZIP Code Phone Number [facility] [phone] [place] [address] [place] [address] * DIABETES EYE EXAM (11/04/2019) Abstract Provider HEALTH MAINTENANCE Edited Resu lt - Final [facility] [address] [place] [address] CLIA# [id number] [address] [place] [address], * HEMOGLOBIN A1C (08/27/2019 11:12 AM DIRECTOR OF INFECTION CONTROL) HEMOGLOBIN A1C 5.3 <=5.6 % 08/27/2019 1:49 PM DIRECTOR OF INFECTION CONTROL [facility] EST. AVG GLUCOSE, A1C 105 mg/dL 08/27/2019 1:49 PM DIRECTOR OF INFECTION CONTROL [facility] Blood Venipuncture / Unknown 08/27/2019 11:12 AM DIRECTOR OF INFECTION CONTROL 08/27/2019 11:12 AM DIRECTOR OF INFECTION CONTROL Narrative [facility] - 08/27/2019 1:49 PM DIRECTOR OF INFECTION CONTROL HGB A1C INTERPRETATION NORMAL: <5.7% PRE-DIABETES: 5.7 - 6.4% DIABETES: 6.5% OR GREATER us Dermond Carlos DO CHEMISTRY ORDERABLES Final Resu lt [facility] CLIA# [id number] [address] [place] [address] * ENDOSCOPY, COLON, SCREENING (03/31/2018) us Abstract Provider GI PROCEDURE ORDERABLES Final Result [facility] CLIA# [id number] [address] [place] [address] from Last 3 Months or Most Recently Relevant to Health Maintenance Insurance Advance Directives For more information, please contact: [phone] * Full Code (Latest Code Status on File) Date Activated Date Inactivated Comments 11/17/2019 11:33 AM 11/17/2019 4:51 PM * Full Code Date Activated Date Inactivated Comments 04/24/2019 6:48 PM 04/25/2019 2:42 AM * Full Code Date Activated Date Inactivated Comments 04/24/2019 2:56 PM 04/24/2019 6:48 PM * Full Code Date Activated Date Inactivated Comments 04/24/2019 1:48 PM 04/24/2019 2:55 PM Care Teams Control Clerk Food And Beverage Relationship Specialty Start Date End Date Isabela Augustine DO PCP - General Family Practice 12/22/19
--- OUTSIDE RECORDS SUMMARY | 2025-07-06 10:52 | XMS_ITS | Encounter Summary ---
Author Organization [facility] Address [address] [place] [address] Care Team Providers Care Watch Electrician Name Role Phone Isabela Augustine Primary Care Provider [phone]- [phone] Reason for Visit * Reason Onset Date Comments symptom tracker 07/05/2025 Encounter Details Date Type Department Care Team (Late st Contact Info) Description 07/05/2025 Telephone [facility] Oncology and Hematology [facility] [address] [facility] [address] [place] [address] [place] [address] [address] [facility] [address] [place] [address] symptom tracker Social History Tobacco Use Types Packs/Day Years [...] encounter Miscellaneous Notes * Telephone Encounter - Khushboo Porter RN - 07/05/2025 10:03 AM CDT ----- Message from Place[employer] sent at 07/05/2025 8:15 AM CDT ----- Please contact patient within 60 minutes regarding ePRO symptom-piece work checker response. Referral ID: Patient Symptoms and Responses: - Diarrhea, - # Pain, 5 - Fever, - - Nausea / Vomiting, - - Able to Eat & Drink, - - Keeping Food / Liquids Down, - - Frequency of Vomiting, - - Physical Limitations, - Message left for patient regarding pain documented in this encounter Plan of Treatment Upcoming Encounters Date Type Department Care Team (Late st Contact Info) Description 07/09/2025 10:30 AM CDT Appointment [facility] Infusion Services [facility] [address] [place] [address] [place] [address] [address] [place] [address] [facility] 07/09/2025 11:00 AM CDT Office Visit [facility] Oncology and Hematology [facility] [address] [place] [address] Candy Arteaga, [facility] [address] [place] [id number] 07/12/2025 2:45 PM CDT Office Visit [facility] Heart and Vascular - [address] [facility] [address] [address] [place] [address] [id number] 07/29/2025 8:45 AM CDT Office Visit [facility] Oncology and Hematology [facility] [address] [place] [address] [place] [address] [address] [facility] [address] [place] [address] 07/29/2025 9:00 AM CDT Appointment [facility] Infusion Services [facility] [address] [place] [address] [place] [address] [address] [facility] [address] [place] [address] [facility] [address] Infusion [facility], Port Draw Infusion documented as of this encounter Visit Diagnoses Not on filedocumented in this encounter Care Teams Watch Electrician Relationship Specialty Start Date End Date Isabela Augustine DO PCP - General Family Practice 12/22/19 documented as of this encounter
--- OUTSIDE RECORDS SUMMARY | 2025-07-06 10:52 | XMS_ITS | Encounter Summary ---
Author Organization [email or web address] Address [address] [place] [address] Care Team Providers Care Community Outreach Manager Name Role Phone Isabela Augustine Primary Care Provider +1- [phone] Encounter Details Date Type Department Care Team [...] Info) Description 07/09/2025 10:30 AM CDT [facility] [address] [place] [address] [place] [address] [address] [facility] [address] [place] [address] [facility], Port Draw Infusion 07/09/2025 11:00 AM CDT Office Visit [facility] Oncology and Hematology [facility] [address] [address] [place] [address] Candy Arteaga, CERAMICS TECHNICIAN [address] [place] [address] 07/12/2025 2:45 PM CDT Office Visit [facility] [address] [facility] [address] [address] [facility] [address] [place] [address] [place] [address] [facility] [address] [place], [place] [id number] 07/29/2025 8:45 AM CDT Office Visit [facility] Oncology and Hematology [facility] [address] [address] [place] [address] [place] [address] [facility] [address] [place] [address] 07/29/2025 9:00 AM CDT Appointment [facility] Infusion Services [facility] [address] [place] [address] [place] [address] [facility] [address] [place] [address] [facility], Chair [address] Infusion D[facility], Port Draw Infusion documented as of this encounter Visit Diagnoses Not on filedocumented in this encounter Care Teams Community Outreach Manager Relationship Specialty Start Date End Date Isabela Augustine DO PCP - General Family Practice 12/22/19 documented as of this encounter
--- OUTSIDE RECORDS SUMMARY | 2025-07-06 10:52 | XMS_ITS | Encounter Summary ---
Author Organization [employer] Address [address] [place] [address] Care Team Providers Care Sas Sql Developer Name Role Phone Isabela Augustine Primary Care Provider +1- [phone] Reason for Visit * Reason Onset Date Comments Nurse Navigation 07/05/2025 Encounter Details Date Type Department Care Team (Late st Contact Info) Description 07/05/2025 Telephone [facility] Oncology and Hematology [facility] [address] [facility] [address] [place] [address] Lila Nath, SARBJIT Nurse Navigation Social History Tobacco Use Types Packs/Day Years [...] encounter Miscellaneous Notes * Telephone Encounter - Lila Nath RN - 07/05/2025 1:01 PM CDT Ilia called me back and stated that the pain he reported last night has resolved. documented in this encounter Plan of Treatment Upcoming Encounters Date Type Department Care Team (Late st Contact Info) Description 07/09/2025 10:30 AM CDT Appointment [facility] Infusion [facility] [address] [place] [address] [place] [address] [facility] [address] [place] [address] [facility] 07/09/2025 11:00 AM CDT Office Visit [facility] Oncology and Hematology [facility] [address] [facility] [address] [place] [address] Candy Arteaga, [place] [id number] [place] [address] 07/12/2025 2:45 PM CDT Office Visit [facility] Heart and Vascular - [address] [facility] 300 [address] [facility] [address] [place] [address] [place] [address] [address] 07/29/2025 8:45 AM CDT Office Visit [facility] Oncology and Hematology [facility] [address] [facility] [address] [place] [address] [place] [address] [facility] [address] [place] [address] 07/29/2025 9:00 AM CDT Appointment [facility] Infusion [facility] [address] [place] [address] [place] [address] [facility] [address] [place] [address] [facility] Chair [address] Infusion [facility], Port Draw Infusion documented as of this encounter Visit Diagnoses Not on filedocumented in this encounter Care Teams Sas Sql Developer Relationship Specialty Start Date End Date Isabela Augustine DO PCP - General Family Practice 12/22/19 documented as of this encounter
--- OUTSIDE RECORDS SUMMARY | 2025-07-06 10:52 | XMS_ITS | Encounter Summary ---
Author Organization [employer] Address [address] [place] [address] Care Team Providers Care Sales Training Representative Name Role Phone Isabela Augustine Primary Care Provider +1- [phone] Encounter Details Date Type Department Care Team [...] Info) Description 07/09/2025 10:30 AM CDT Appointment [facility] Infusion Services [facility] [address] [place] [address] [place] [address] [address] [facility] [address] [place] [address] [facility], Port Draw Infusion 07/09/2025 11:00 AM CDT Office Visit [facility] Oncology and Hematology [facility] [address] [address] [place] [address] Candy Arteaga, ADULT BASIC EDUCATION TEACHER [address] [place] [address] 07/12/2025 2:45 PM CDT Office Visit [facility] Heart [facility] Vascular - [address] [facility] [address] [address] [facility] [address] [place] [address] [place] [address] [facility] [address] [place], [place] [id number] 07/29/2025 8:45 AM CDT Office Visit [facility] Oncology and Hematology [facility] [address] [address] [place] [address] [place] [address] [facility] [address] [place] [address] 07/29/2025 9:00 AM CDT Appointment [facility] Infusion Services [facility] [address] [place] [address] [place] [address] [facility] [address] [place] [address] [facility], Chair # 9 Infusion [facility], Port Draw Infusion documented as of this encounter Visit Diagnoses Not on filedocumented in this encounter Care Teams Sales Training Representative Relationship Specialty Start Date End Date Isabela Augustine DO PCP - General Family Practice 12/22/19 documented as of this encounter
--- OUTSIDE RECORDS SUMMARY | 2025-07-06 10:52 | XMS_ITS | Encounter Summary ---
Author Organization [email or web address] Address [address] [place] [address] Care Team Providers Care Stave Mill Hand Name Role Phone Isabela Augustine Primary Care Provider +1- [phone] Encounter Details Date Type Department Care Team [...] Appointment [facility] [place] Infusion Services [facility] [address] [place] [address] [place] [address] [address] [facility] [address] [place] [address] [facility], Port Draw Infusion 07/09/2025 11:00 AM CDT Office Visit [facility] Oncology and Hematology [facility] [address] [address] [place] [address] Candy Arteaga, MOLDING ASSOCIATE [address] [place] [address] 07/12/2025 2:45 PM CDT Office Visit [facility] Heart [facility] - [address] [facility] [address] [address] [facility] [address] [place] [address] [place] [address] [facility] [address] [place], [place] [id number] 07/29/2025 8:45 AM CDT Office Visit [facility] Oncology and Hematology [facility] [address] [address] [place] [address] [place] [address] [facility] [address] [place] [address] 07/29/2025 9:00 AM CDT Appointment [facility] Infusion Services [facility] [address] [place] [address] [place] [address] [facility] [address] [place] [address] [facility], Chair [address] Infusion [facility], Port Draw Infusion documented as of this encounter Visit Diagnoses Not on filedocumented in this encounter Care Teams Stave Mill Hand Relationship Specialty Start Date End Date Isabela Augustine DO PCP - General Family Practice 12/22/19 documented as of this encounter
--- OUTSIDE RECORDS SUMMARY | 2025-07-06 10:52 | XMS_ITS | Encounter Summary ---
Author Organization [email or web address] Address [address] [place] [address] Care Team Providers Care Merchandise Flow Team Leader Name Role Phone Isabela Augustine Primary Care Provider +1- [phone] Encounter Details Date Type Department Care Team [...] Info) Description 07/09/2025 10:30 AM CDT Appointment [facility]fusion Services [facility] [address] [place] [address] [place] [address] [address] [facility] [address] [place] [address] [facility], Port Draw Infusion 07/09/2025 11:00 AM CDT Office Visit [facility] Oncology and Hematology [facility] [address] [address] [place] [address] Candy Arteaga, RESTAURANT OPERATIONS MANAGER [address] [place] [address] 07/12/2025 2:45 PM CDT Office Visit [facility] [address] [facility] [address] [facility] [address] [place] [address] [place] [address] [facility] [address] [place], [place] [id number] 07/29/2025 8:45 AM CDT Office Visit [facility] Oncology and Hematology [facility] [address] [address] [place] [address] [place] [address] [facility] [address] [place] [address] 07/29/2025 9:00 AM CDT Appointment [facility] Infusion Services [facility] [address] [place] [address] [place] [address] [facility] [address] [place] [address] [facility], Chair [address] Infusion [facility], Port Draw Infusion documented as of this encounter Visit Diagnoses Not on filedocumented in this encounter Care Teams Merchandise Flow Team Leader Relationship Specialty Start Date End Date Isabela Augustine DO PCP - General Family Practice 12/22/19 documented as of this encounter
--- NOTE | 2025-08-02 11:00 | WPDSLEEPSTUD ---
Sleep Study Date of Study: 07/06/25 Ordering Provider: Barb Singh NP Interpreting Physician: Camila Hairston MD Sleep Study Type: CPAP Titration Height: 1.91 m Weight: 83.915 kg Body Mass Index: 23.1 Neck Circumference (inches): 15 [place]: 12 Reason for Sleep Study Hypersomnolence, known obstructive sleep apnea * 05/10/2025, snap home sleep test apnea-hypopnea index 31.4, central mixed index 17.7, 49.6% of the events were central lowest desaturation 77% and 26 minutes or 12% the study spent below 88% saturation He presents now for CPAP titration Sleep History Ilia Sarabia is a 70-year-old man with excessive daytime sleepiness. His comorbidities include hypertension and heart disease. He complains of frequent nighttime awakenings. He rarely awakens from sleep feeling short of breath. He rarely wakes at night with heartburn, belching or coughing.??He occasionally snores, occasionally snores loudly enough that others complain. He frequently has trouble sleeping when he has a cold. He occasionally wakes up gasping for breath during the night. He occasionally has breathing problems at night. He never sweats excessively at night. He rarely notices his heart pounding or beating irregularly during the night. He occasionally falls asleep during the day. He never falls asleep involuntarily, never falls asleep while driving. He never experiences loss of muscle tone with strong emotion. He rarely has daytime difficulty at work due to excessive sleepiness. He never feels paralyzed on waking or falling asleep. He rarely experiences vivid dreams upon waking or falling asleep. He never feels afraid of going to sleep. He rarely has nightmares. He occasionally recalls his dreams. He rarely has thoughts racing through his mind. He rarely feels sad or depressed. He occasionally feels anxiety. He rarely notices parts of his body jerk. He rarely kicks during the night. He rarely feels crawling or aching feelings in his legs. He rarely feels leg pain at night. He rarely has morning jaw pain, rarely grinds his teeth at night. He rarely feels bothered by pain during the day, rarely is awakened by pain during the night. He rarely wakes up feeling stiff in the morning, and he rarely wakes feeling sore or achy. He occasionally awakens with pain in his neck, spine, or joints. He reports a 10 lb weight loss in the last year. Normal bedtime is 10:00 p.m., falling asleep within 20 minute, waking between 3 and 4 times during the night, goes to the bathroom and get a drink of water, returns to sleep within 15 minutes. His normal wake time is 6:00 a.m.. Schedule is similar on the weekends, bedtime 11:00 p.m. and wake time 7:00 a.m.. Sometimes he takes naps in the afternoon or evening and a short nap lasting 10-15 minutes may be refreshing. Habits:??Tobacco: Never Caffeine: small Coke Alcohol: nonalcoholic beer Recreational substances: none PMFSH Past Medical History Medical History Lymphoma Pain of left great toe Mass in the abdomen Witnessed episode of apnea Hypersomnia Snoring Prediabetes Tinnitus Aortic aneurysm Afib Hyperlipidemia Prostate cancer Heart disease HTN (hypertension) Hx of myocardial infarction Gallbladder disorder CAD (coronary artery disease) Surgical History Surgical History Hx of cholecystectomy Hx of hernia repair 2018 & 2023 History of heart bypass surgery 2014 Family History Family History Mother Hypertension Breast cancer Grandparent Stomach cancer Grandparent Heart disease Social History Social History Smoking status: Never smoker Alcohol intake: current Alcohol use details: 1-4 drinks per week Substance use: never Medications Home Medications ?Medication ?Instructions ?Recorded ?Confirmed ?Type atorvastatin 80 mg tablet (Lipitor) 80 mg PO DAILY 01/11/25 07/07/25 History diltiazem HCl 360 mg capsule,24 360 mg PO DAILY 01/11/25 07/07/25 History hr,extended release (Tiadylt ER) ezetimibe 10 mg tablet 10 mg PO DAILY 01/11/25 07/07/25 History losartan 100 mg tablet 100 mg PO DAILY 01/11/25 07/07/25 History metformin 500 mg tablet,extended 500 mg PO DAILY 01/11/25 07/07/25 History release 24 hr (Glucophage XR) Held on 07/07/25. Instructions: .Provider Order metoprolol succinate 100 mg 100 mg PO DAILY 01/11/25 07/07/25 History tablet,extended release 24 hr warfarin 2 mg tablet 2 mg PO DAILY 01/11/25 07/07/25 History amlodipine 2.5 mg tablet 2.5 mg PO DAILY 03/30/25 07/07/25 History dapagliflozin propanediol 10 mg 10 mg PO DAILY 03/30/25 07/07/25 History tablet (Farxiga) magnesium citrate 100 mg capsule 100 mg PO DAILY 03/30/25 07/07/25 History oxybutynin chloride 10 mg 10 mg PO DAILY 03/30/25 07/07/25 History tablet,extended release 24 hr tamsulosin 0.4 mg capsule 0.4 mg PO DAILY 03/30/25 07/07/25 History zinc acetate 50 mg (zinc) capsule 50 mg PO DAILY 03/30/25 07/07/25 History (Galzin) lorazepam 1 mg tablet 1 mg PO DIRECTED #2 tabs 04/06/25 07/07/25 Rx alprazolam 0.25 mg tablet (Xanax) 0.25 mg PO QHS PRN sleep #30 tabs 04/28/25 07/07/25 Rx ondansetron 4 mg disintegrating 4 mg PO Q8H PRN nausea and 05/17/25 07/07/25 Rx tablet vomiting #30 tabs pantoprazole 40 mg tablet,delayed 40 mg PO QAM #90 tabs 06/30/25 07/07/25 Rx release Sleep Procedure A full night polysomnogram using the medineering multi-channel system recorded the standard physiologic parameters including EEG, EOG, submentalis EMG, anterior tibialis EMG, EKG, body position, nasal and oral airflow using PAP device flow signal. Respiratory parameters of chest and abdominal movements were recorded with Respiratory Inductance Plethysmography belts. Oxygen saturation was recorded by pulse oximetry. Video monitoring was also performed. Sleep stages, periodic limb movements, and EEG arousals were scored in 30 second epochs according to the criteria of the AASM Scoring Manual. The Apnea-Hypopnea Index was calculated using [facility] guidelines for definition of hypopnea with 4% O2 desaturations while scoring respiratory events. the patient self-administered Lunesta 2 mg at the beginning of the study. He chose a medium Resmed Airtouch F20 FFM to use, initial pressure was CPAP 5 cm, titrated to 6 cm, 7 cm, 9 cm which was the final pressure. At CPAP 7 cm, the patient spent 92 minutes in bed, 30 minute awake, 53 minute in non-REM and 9 minutes in REM. Sleep efficiency was 67.4% at this setting. The residual apnea-hypopnea index was 4.8 with 5 obstructive apneas and 1 hypopnea. The Mean saturation was 96% and REM occurred in the left lateral position. There was no supine REM during the entire study. The patient had a significant amount of wakefulness during the study and had no sleep on a CPAP pressure of 9. On his baseline home sleep test using a snap device, patient had central apnea index that was 49%, and he had no centrals on this test. Sleep Architecture The total recording time was 363.3 minutes. The total sleep time was 166.0 minutes. Sleep latency was 13.6 minutes. REM latency was 61.0 minutes. Sleep efficiency was 45.7%. The patient had 11 awakenings for an awakening index of 4.0. Wake after Sleep Onset time was 183.5 minutes. The patient spent 13.5 minutes, 8.1% of total sleep time in Stage N1. The patient spent 114.0 minutes, 68.7% in Stage N2. The patient spent 12.0 minutes, 7.2% in Stage N3. The patient spent 26.5 minutes, 16.0% in Stage REM. Respiratory Analysis The patient had no hypopneas, 8 obstructive apneas, no mixed apneas, and no central apneas for an overall Apnea Hypopnea Index of 2.9 events per hour. The REM Apnea Hypopnea Index was 0. The NREM Apnea Hypopnea Index was 3.4. The patient had a Central Apnea Hypopnea Index of 0. There were no Respiratory Effort Related Arousals. The Respiratory Disturbance Index is 3.3 events per hour. There was no evidence of Ghassan-Jimenez Respirations. Arousals There were 29 total arousals for an arousal index of 10.5. There were 13 spontaneous arousals for an index of 4.7. There were 2 arousals due to respiratory events for an index of 0.7. There were 11 arousals due to periodic limb movements for an index of 4.0. There were 4 arousals due to isolated limb movements for an index of 1.4. Periodic Limb Movements The patient had 45 isolated limb movements with an index of 16.3. The patient had 343 periodic limb movements with index of 124.0. Patient had a total of 388 limb movements with a total limb movement index of 140.2. Oximetry Data The patient had an average oxygen saturation of 96.1% in sleep with a minimum oxygen saturation of 86% and a maximum oxygen saturation of 98%. The patient had 4 oxygen desaturations that were 4% or greater resulting in an Oxygen Desaturation Index of 1.4. The patient spent 0.2 minutes, 0.1% of total sleep time with an oxygen saturation below 88%. Snoring Profile Snoring was mild, eliminated during the titration. Cardiac Profile The EKG showed atrial fibrillation, average pulse rate of 49 bpm, minimum pulse rate of 36 bpm and a maximum pulse rate of 66 bpm. No arrhythmias noted. EEG Profile Unremarkable, no evidence of seizures. Assessment and Plan Assessment and Plan (1) Obstructive sleep apnea: Code(s): G47.33 - Obstructive sleep apnea (adult) (pediatric) Status: Acute Assessment and Plan: This full night CPAP titration on 07/06/2025 shows an optimal pressure of CPAP 7 cm using a medium Resmed Airtouch F20 FFM and and heated humidity At CPAP 7 cm, the patient spent 92 minutes in bed, 30 minute awake, 53 minute in non-REM and 9 minutes in REM. Sleep efficiency was 67.4%. The residual apnea-hypopnea index was 4.8 with 5 obstructive apneas and 1 hypopnea. The Mean saturation was 96% and REM occurred in the left lateral position. There was no supine REM during the entire study. The patient had a significant amount of wakefulness during the study and had no sleep on a CPAP pressure of 9. The patient should be prescribed this ResMed equipment as well as tubing, filters and reservoir. This should be used with all episodes of sleep. Compliance should be reviewed within 31-90 days of starting therapy for usage greater than 4 hours per night greater than 70% of the nights. The patient should be asked about symptoms such as excessive daytime sleepiness, quality of sleep, decreased nocturia, increased mental functioning such as memory, mood, and concentration. He had excessive limb movements, however these did not cause arousals. he had 343 periodic limb movements with index of 124.0, and a total of 388 limb movements with a total limb movement index of 140.2. His sleep questionnaire indicates that he rarely experiences uncomfortable feelings in his legs, rarely kicks or move his legs at night. He had long periods of wakefulness during this CPAP titration. the initial use of CPAP can be associated with increased kicking at night, CPAP kick, normally does appears within 1-2 months. His leg movements may be contributing to his fragmented poor sleep. Bairon checking a ferritin to exclude iron deficiency anemia as a contributing cause. He has other health conditions that may explain anemia. Data The data obtained during this sleep study is adequate for interpretation. Certification This sleep study has been reviewed by a board certified sleep medicine physician.
[2025-08-02 11:27] VITALS: BMI 23.1
== END 2025-07-07 05:25 | disposition home or self-care (01) ==
LOC: ANHCSM 09:58
PROVIDERS: PCP Nurse Practitioner Family; Visit Provider Nurse Practitioner Family
DX: G47.33 Obstructive sleep apnea (adult) (pediatric) (principal); G47.31 Primary central sleep apnea; I25.9 Chronic ischemic heart disease, unspecified
CPT/HCPCS: 95811